=== PATIENT | female | born 1990 | race Caucasian/White ===

== ENCOUNTER 2017-11-14 19:06 | Emergency (ER) | payer OTHER ==
[2017-11-14 19:13] VITALS: BP 140/90; PULSE 93; TEMP 98.2; BMI 44.4
--- NOTE | 2017-11-14 19:16 | PDOC ---
History of Present Illness - General History Source: Patient Exam Limitations: No Limitations - History of Present Illness Initial Comments: 11/14/17 20:29 The patient is a 27 year old female, with a significant PMH of Diogenes thyroiditis, bipolar and SMA syndrome s/p jejunostomy, who presents to the emergency department with 3 days of migraine. The patient endorses associated symptoms of body aches, nonbloody and nonbilious vomiting and diarrhea. The patient reports a boil outside of her vagina. The patient denies any history of migraines. Denies chest pain, shortness of breath and dizziness. Denies fever, chills, nausea, vomit, diarrhea and constipation. Denies dysuria, frequency, urgency and hematuria. Allergies: Cefdinir, haloperidol, haloperidol lactate, Penicillins, sulfa Past surgical history: Abdominal exploratory, cholecystectomy PCP: None reported <Juliocesar Lance - Last Filed: 11/14/17 20:29> - General History Source: Patient Exam Limitations: No Limitations <Mindi Mcconnell - Last Filed: 11/15/17 00:06> - General Chief Complaint: Nausea/Vomiting Stated Complaint: DIARRHEA Time Seen by Provider: 11/14/17 19:15 Past History <Juliocesar Lance - Last Filed: 11/14/17 20:29> - Past Medical History COPD: No GI Disorders: Yes Psychiatric Problems: Yes (BIPOLAR) Thyroid Disease: Yes (Diogenes's thyroiditis) - Surgical History Abdominal Surgery: Yes (Exploratory) Cholecystectomy: Yes GI Surgery: Yes (Gastrojejunun) - Immunization History Immunization Up to Date: Yes - Suicide/Smoking/Psychosocial Hx Smoking History: Current every day smoker Have you smoked in the past 12 months: Yes Number of Cigarettes Smoked Daily: 4 Information on smoking cessation initiated: No 'Breaking Loose' booklet given: 03/29/14 Hx Alcohol Use: No Drug/Substance Use Hx: No Substance Use Type: None <Mindi Mcconnell - Last Filed: 11/15/17 00:06> - Past Medical History Allergies/Adverse Reactions: Allergies Allergy/AdvReac Type Severity Reaction Status Date / Time cefdinir [Cefdinir] Allergy Verified 11/14/17 19:09 haloperidol [From Haldol] Allergy Verified 11/14/17 19:09 haloperidol lactate Allergy Verified 11/14/17 19:09 [From Haldol] Penicillins Allergy Verified 11/14/17 19:09 Sulfa (Sulfonamide Allergy Verified 11/14/17 19:09 Antibiotics) venom-honey bee Allergy Verified 11/14/17 19:09 [bee venom (honey bee)] Home Medications: Ambulatory Orders Lamotrigine [LaMICtal -] 125 mg PO DAILY 10/09/13 Thyroid,Pork [[place] Thyroid] 120 mg PO DAILY 10/09/13 Alprazolam [Xanax -] 1 mg PO DAILY PRN 03/06/15 Ciprofloxacin [Cipro -] 500 mg PO Q12H #20 tablet 12/17/15 Dicyclomine HCl [Bentyl] 20 mg PO DAILY 12/17/15 Hydrocodone/Acetaminophen [Vicodin 5-300 mg Tablet] 1 each PO TID #6 tablet MDD 3 12/17/15 Hydrocodone/Acetaminophen [Vicodin Hp 10-300 mg Tablet] 1 each PO TID PRN Metoclopramide HCl [Reglan] 10 mg PO DAILY #10 tablet 12/17/15 Sucralfate [Carafate -] 1 gm PO QID #40 tablet 12/17/15 metroNIDAZOLE [Flagyl -] 500 mg PO TID #30 tablet 12/17/15 Acetaminophen W/ Codeine #3 [Tylenol # 3 -] 1 tab PO Q6H PRN #6 tablet MDD 3 tabs 10/15/17 Acetaminophen W/ Codeine #3 [Tylenol # 3 -] 1 tab PO Q6H PRN #6 tablet MDD 3 tabs 10/15/17 Ondansetron HCl [Zofran] 4 mg PO BID PRN #20 tablet 11/15/17 Review of Systems - Review of Systems Comments:: 11/14/17 20:30 General: No fevers or chills, no weakness, no weight loss HEENT: No change in vision. No sore throat,. No ear pain Cardiovascular: No chest pain or shortness of breath Respiratory:No cough, or wheezing. Gastrointestinal:+ nausea +vomiting +diarrhea. No constipation, No rectal bleeding Genitourinary: No dysuria, hematuria, or frequency Musculoskeletal: No joint or muscle pain or swelling Neurologic: +headache. No vertigo, dizziness or loss of consciousness Psychiatric: nor depression Skin: No rashes or easy bruising Endocrine: no increased thirst or abnormal weight change Allergic: no skin or latex allergy All other systems reviewed and normal <Juliocesar Lance - Last Filed: 11/14/17 20:29> *Physical Exam - Vital Signs Last Vital Signs Temp Pulse Resp BP Pulse Ox 98.2 F 93 H 18 140/90 96 11/14/17 19:09 11/14/17 19:09 11/14/17 19:09 11/14/17 19:09 11/14/17 19:09 - Physical Exam Comments: 11/14/17 20:41 GENERAL: The patient is in no acute distress. HEAD: Normal with no signs of trauma. EYES: PERRLA, EOMI, sclera anicteric, conjunctiva clear. ENT: Ears normal, nares patent, oropharynx clear without exudates. Moist mucous membranes. NECK: Normal range of motion, supple without lymphadenopathy, JVD, or masses. LUNGS: Breath sounds equal, clear to auscultation bilaterally. No wheezes, and no crackles. HEART:Regular rate and rhythm, normal S1 and S2 without murmur, rub or gallop. ABDOMEN: +Mild epigastric tenderness. Soft, nontender, normoactive bowel sounds. No guarding, no rebound. No masses palpable. GI:No abscess to vagina, no swelling rash or bug bite. EXTREMITIES: Normal range of motion, no edema. No clubbing or cyanosis. No erythema, or tenderness. NEUROLOGICAL: Cranial nerves II through XII grossly intact. Normal speech. No focal neurological deficits. MUSCULOSKELETAL: No nuchal rigidity. Back non-tender to palpation, no CVA tenderness SKIN: +Scab to the top of the head. Warm, Dry, normal turgor, no rashes or lesions noted. <Juliocesar Lance - Last Filed: 11/14/17 20:29> - Vital Signs Last Vital Signs Temp Pulse Resp BP Pulse Ox 98.2 F 93 H 18 140/90 96 11/14/17 19:09 11/14/17 19:09 11/14/17 19:09 11/14/17 19:09 11/14/17 19:09 <Mindi Mcconnell - Last Filed: 11/15/17 00:06> ED Treatment Course - LABORATORY CBC & Chemistry Diagram: 11/14/17 20:05 11/14/17 20:05 - ADDITIONAL ORDERS Additional order review: 11/14/17 20:05 RBC 4.50 MCV 89.7 MCHC 33.0 RDW 12.6 MPV 8.0 Neutrophils % 57.5 Lymphocytes % 33.5 Monocytes % 7.3 Eosinophils % 1.0 Basophils % 0.7 - Medications Given in the ED: ED Medications Discontinued Medications Generic Name Dose Route Start Last Admin Trade Name Marjan PRN Reason Stop Dose Admin Acetaminophen 1,000 mg 11/14/17 19:46 11/14/17 20:27 Ofirmev Injection - IVPB 11/14/17 19:47 1,000 mg ONCE ONE Administration <Juliocesar Lance - Last Filed: 11/14/17 20:29> - LABORATORY CBC & Chemistry Diagram: 11/14/17 20:05 11/14/17 20:05 <Mindi Mcconnell - Last Filed: 11/15/17 00:06> Medical Decision Making - Medical Decision Making 11/14/17 21:47 Ms Brunson is a 27 yo F with a h/o Diogenes's Thyroiditis, h/o epilepsy, SMA syndrome s/p gastrojejunostomy She presents to the ER with a complaint of body aches, bone pain She noted that at the top of her scalp, she expressed a purulent material She has had vomiting and diarrhea such that she has been unable to take her synthroid for the past 3 days No known fevers On examination: Pt appears anxious, she is fidgety. RRR CTA B/L Epigastric tenderness to palpation External genitalia nml appearing, no erythema, no fluctuance palpated Unclear the cause of her Will do: Labs IV hydration Tylenol Pt given Reglan for nausea and headache She has taken this before She developed body tingling Pt given Benadryl 11/14/17 21:51 Laboratory Tests 11/14/17 11/14/17 20:05 20:05 WBC 8.4 RBC 4.50 Hct 40.3 Plt Count 336 Neutrophils % 57.5 Lymphocytes % 33.5 Sodium 137 Potassium 3.5 Chloride 105 Carbon Dioxide 24 BUN 8 Creatinine 0.8 Random Glucose 93 AST 17 D ALT 44 H D Total Amylase [address] head Mother is concerned about additional radiation because she has had multiple images for the abdominal pain (SMA syndrome dx) and the seizure Awaiting testing 11/15/17 00:01 CT head neagtive Pt feels much better Will discharge to home Return to the ER for any other concerns or complaints <Mindi Mcconnell - Last Filed: 11/15/17 00:06> *DC/Admit/Observation/Transfer <Juliocesar Lance - Last Filed: 11/14/17 20:29> - Discharge Dispostion Decision to Admit order: No <Mindi Mcconnell - Last Filed: 11/15/17 00:06> Diagnosis at time of Disposition: Scalp abscess Nausea & vomiting Qualifiers: Vomiting type: unspecified Vomiting Intractability: non-intractable Qualified Code(s): R11.2 - Nausea with vomiting, unspecified - Discharge Dispostion Disposition: HOME Condition at time of disposition: Stable - Patient Instructions Printed Discharge Instructions: DI for Nausea -- Adult, DI for Vomiting -- Adult Additional Instructions: Ms Lujannabor Thank you for coming in to the ER today Please take medications as prescribed Please stay hydrated Monitor for fevers If your symptoms worsen or do not improve, please return to the ER for re evaluation Follow up with your primary care physician within 2-3 business days Please apply warm compresses to the area that is painful, if you notice an abscess return to the ER or the equipment cleaner's office
[2017-11-14] MEDS ORDERED: SODIUM CHLORIDE 1,000 ML IV STA ×2 (19:46→22:43)
[2017-11-14] MEDS ORDERED: ACETAMINOPHEN 1000 MG/100 ML VIAL (NON FORMULARY) IVPB ONE (19:46)
[2017-11-14] MEDS ORDERED: METOCLOPRAMIDE HCL INJECTION 10 MG/2 ML VIAL IVPUSH ONE (19:56)
[2017-11-14] MEDS ORDERED: ACETAMINOPHEN INJECTION 100 ML IVPB ONE (20:13)
[2017-11-14 20:21] LABS: BASO % 0.7 % (0-2.0); HEMATOCRIT 40.3 % (32.4-45.2); HEMOGLOBIN 13.3 GM/dl (10.7-15.3); LYMPH % 33.5 % (8-40); MCH 29.6 pg (25.7-33.7); MEAN CELL VOLUME 89.7 fl (80-96); MONO % 7.3 % (3.8-10.2); NEUT % 57.5 % (42.8-82.8); PLATELET COUNT 336 K/MM3 (134-434); RDW 12.6 % (11.6-15.6); WHITE BLOOD COUNT 8.4 K/mm3 (4.0-10.8)
[2017-11-14 20:34] LABS: ALBUMIN 4.3 g/dl (3.5-5.0); ALK PHOS 154 U/L (32-92); AMYLASE 36 U/L (25-125); ANION GAP 8 MMOL/L (8-16); BILIRUBIN,TOTAL 0.6 mg/dl (0.2-1.0); BLOOD UREA NITROGEN 8 mg/dl (7-18); CHLORIDE 105 mmol/L (98-107); CO2 24 mmol/L (22-28); CREATININE 0.8 mg/dl (0.6-1.3); GLUCOSE,RANDOM 93 mg/dl (74-106); POTASSIUM 3.5 mmol/L (3.5-5.1); SGOT/AST 17 U/L (10-42); SGPT/ALT 44 U/L (10-40); SODIUM 137 mmol/L (136-145); TOT PROT 7.2 g/dl (6.4-8.3)
[2017-11-14 21:35] LABS: LIPASE 84 U/L (73-393)
[2017-11-14 22:47] LABS: HCG,QUALITATIVE URINE Negative
[2017-11-14 22:49] LABS: PH,URINE 5.5 (4.5-8); URINE APPEARANCE Clear; URINE BILIRUBIN 1+ (NEGATIVE); URINE COLOR Yellow; URINE GLUCOSE (UA) Negative (NEGATIVE); URINE KETONE 1+ (NEGATIVE); URINE LEUK ESTERASE Negative (NEGATIVE); URINE NITRITE Negative (NEGATIVE); URINE PROTEIN Negative (NEGATIVE); URINE UROBILINOGEN 0.2 (0.2-1.0)
== END 2017-11-15 00:54 | disposition home or self-care (01) ==
LOC: FER 19:06
PROC: 3E033NZ Introduction of Analgesics, Hypnotics, Sedatives into Peripheral Vein, Percutaneous Approach (ICD-10-PCS; principal; 2017-11-14)
PROC: 3E033GC Introduction of Other Therapeutic Substance into Peripheral Vein, Percutaneous Approach (ICD-10-PCS; 2017-11-14)
PROC: 3E0337Z Introduction of Electrolytic and Water Balance Substance into Peripheral Vein, Percutaneous Approach (ICD-10-PCS; 2017-11-14)
DX: R11.2 Nausea with vomiting, unspecified (principal); L02.811 Cutaneous abscess of head [any part, except face]; E06.3 Autoimmune thyroiditis; G40.909 Epilepsy, unspecified, not intractable, without status epilepticus; G12.9 Spinal muscular atrophy, unspecified
CPT/HCPCS: 36415; 70450-TC; 80053; 81003; 82150; 83690; 84443; 84703; 85025; 87040; 87086; 99281-25; 99282-25; J0131; J7030

== ENCOUNTER 2018-05-10 05:04 | Emergency (ER) | payer OTHER ==
[2018-05-10 05:20] VITALS: BP 116/69; PULSE 79; TEMP 97.8; BMI 38.7
--- NOTE | 2018-05-10 05:21 | PDOC ---
History of Present Illness - General Chief Complaint: Injury Stated Complaint: FALL/HEAD INJURY - History of Present Illness Initial Comments: 05/10/18 06:01 This 28-year-old woman with a history of Diogenes's thyroiditis, seizure disorder, SMA syndrome, anxiety and a history of sleepwalking presents after episode of sleepwalking resulting in a head/facial injury. Patient states that at approximately 1:30 AM this morning she was sleepwalking when she fell, striking her upper face against the floor. The patient states that she awakened immediately and feels that she had no other loss of consciousness ( patient lives alone and fall was unwitnessed). Patient was able to call 911 and was taken to another hospital ER. She left this ER after not being seen after a few hours and proceeded here in the company of her mother. Patient states that she initially had a nosebleed that persisted for about an hour (and has not recurred since then) . She is currently complaining of frontal headache and mild nausea. She has had no double vision or malocclusion . She denies neck pain/shortness of breath or chest pain/abdominal pain. She was able to ambulate into the ER here without difficulty. Patient recently had a sleep study to investigate her history of sleepwalking. Sleepwalking reportedly began after a seizure in February,. The patient states that she had fewer episodes of sleepwalking in recent times until last night's incident. Past History - Past Medical History Allergies/Adverse Reactions: Allergies Allergy/AdvReac Type Severity Reaction Status Date / Time cefdinir [Cefdinir] Allergy Verified 11/14/17 19:09 haloperidol [From Haldol] Allergy Verified 11/14/17 19:09 haloperidol lactate Allergy Verified 11/14/17 19:09 [From Haldol] Penicillins Allergy Verified 11/14/17 19:09 Sulfa (Sulfonamide Allergy Verified 11/14/17 19:09 Antibiotics) venom-honey bee Allergy Verified 11/14/17 19:09 [bee venom (honey bee)] Home Medications: Ambulatory Orders Lamotrigine [LaMICtal -] 200 mg PO DAILY 10/09/13 Thyroid,Pork [[place] Thyroid] 120 mg PO DAILY 10/09/13 Alprazolam [Xanax -] 1 mg PO DAILY PRN 03/06/15 Metoclopramide HCl [Reglan] 10 mg PO DAILY #10 tablet 12/17/15 Sucralfate [Carafate -] 1 gm PO QID #40 tablet 12/17/15 Ondansetron HCl [Zofran] 4 mg PO BID PRN #20 tablet 11/15/17 Buprenorphine HCl/Naloxone HCl [Suboxone 8 mg-2 mg Sl Tablets] 24 mg SL DAILY Fluvoxamine Maleate [Luvox -] 300 mg PO DAILY 05/10/18 traZODone HCL [Trazodone HCl] 50 mg PO DAILY 05/10/18 COPD: No GI Disorders: Yes Psychiatric Problems: Yes (BIPOLAR) Thyroid Disease: Yes (Diogenes's thyroiditis) - Surgical History Abdominal Surgery: Yes (Exploratory) Cholecystectomy: Yes GI Surgery: Yes (Gastrojejunun) - Immunization History Immunization Up to Date: Yes - Suicide/Smoking/Psychosocial Hx Smoking History: Current every day smoker Have you smoked in the past 12 months: Yes Number of Cigarettes Smoked Daily: 5 Information on smoking cessation initiated: Yes 'Breaking Loose' booklet given: 03/29/14 Hx Alcohol Use: No Drug/Substance Use Hx: No Substance Use Type: None Review of Systems - Review of Systems Able to Perform ROS?: Yes Comments:: 12 point review of systems is negative except for what is noted in the history of present illness *Physical Exam - Vital Signs Last Vital Signs Temp Pulse Resp BP Pulse Ox 97.8 F 79 16 116/69 99 05/10/18 05:16 05/10/18 05:16 05/10/18 05:16 05/10/18 05:16 05/10/18 05:16 - Physical Exam Comments: GENERAL: Adult female, alert and oriented 3, in mild distress secondary to headache. HEAD: Faintly ecchymotic, moderately tender and mildly edematous 2 cm x 2 cm right forehead contusion EYES: PERRLA, EOMI, sclera anicteric, conjunctiva clear. ENT: . Nonbleeding 1 cm abrasion of midline nasal bridge; bridge is moderately edematous, moderately tender; no distinct deformity No evidence of epistaxis currently; nonbleeding 1cm abrasion midline mid-nose. 1 cm nonbleeding abrasion to the right of the philtrum No evidence of malocclusion; no dental or gingival injury noted NECK: Normal range of motion, supple without lymphadenopathy, JVD, or masses. LUNGS: Breath sounds equal, clear to auscultation bilaterally. No wheezes, and no crackles. HEART:Regular rate and rhythm, normal S1 and S2 without murmur, rub or gallop. ABDOMEN:.normal bowel sounds No guarding,tenderness or rebound.No masses No distention. EXTREMITIES: Normal range of motion, no edema. No clubbing or cyanosis. No erythema, or tenderness. NEUROLOGICAL: Cranial nerves II through XII grossly intact. Normal speech. No focal neurological deficits. MUSCULOSKELETAL: Back non-tender to palpation, no CVA tenderness SKIN: Warm, Dry, normal turgor, no rashes or lesions noted. Moderate Sedation - Procedure Monitoring Vital Signs: Procedure Monitoring Vital Signs Temperature 97.8 F 05/10/18 05:16 Pulse Rate 79 05/10/18 05:16 Respiratory Rate 16 05/10/18 05:16 Blood Pressure 116/69 05/10/18 05:16 O2 Sat by Pulse Oximetry (%) 99 05/10/18 05:16 Medical Decision Making - Medical Decision Making This 28-year-old woman with several medical problems as noted above and recent history of sleepwalking presents with head and facial trauma after falling during an episode of sleepwalking a few hours prior to presentation. She is complaining of headache and mild nausea Exam as noted above with tender contusion of the right forehead and tenderness/ edema/abrasions of nasal area. PGU sent and patient given 1 g of acetaminophen IV for headache. Abrasions cleansed with sterile NS and Bacitracin ointment applied Patient has a history of SMA syndrome which, according to her mother frequently occurs after acutely stressful episodes such as tonight's sleepwalking incident. In the past, PPI medications have been successful in proactively avoiding these SMA syndrome episodes. Protonix 40 mg IV administered while awaiting imaging study. PGU negative. Noncontrast head CT/facial CT ordered. 05/10/18 07:01 Case signed out to Dr Mcconnell at change of shift. *DC/Admit/Observation/Transfer Diagnosis at time of Disposition: Sleep walking Facial injury Qualifiers: Encounter type: initial encounter Qualified Code(s): S09.93XA - Unspecified injury of face, initial encounter - Discharge Dispostion Disposition: HOME Condition at time of disposition: Stable - Referrals Referrals: Pepe Dominguez [Primary Care Provider] - - Patient Instructions Printed Discharge Instructions: DI for Closed Head Injury Additional Instructions: Thank you for coming in to the ER today Please review your CT results They were preliminarily read as negative but will be re read today by our radiologists. If there are ANY new findings, we will call you For now, please take tylenol every 6 hours, apply ice to the areas that are painful Return to the emergency department immediately with ANY new, persistent or worsening symptoms. Continue any medications as previously prescribed by your physician. You should follow up with your primary doctor as soon as possible regarding today's emergency department visit. Please make sure your doctor reviews the results of your emergency evaluation. Thank you for coming to the [facility] today for your care. It was a pleasure to see you today. Please note that your evaluation is INCOMPLETE until you follow-up with your doctor. - Post Discharge Activity
[2018-05-10] MEDS ORDERED: ACETAMINOPHEN 1000 MG/100 ML VIAL (NON FORMULARY) IVPB ONE (05:48)
[2018-05-10] MEDS ORDERED: ACETAMINOPHEN INJECTION 100 ML IVPB ONE (05:55)
[2018-05-10] MEDS ORDERED: PANTOPRAZOLE SODIUM 40 MG VIAL IVPB ONE (06:16)
[2018-05-10] MEDS ORDERED: PANTOPRAZOLE SODIUM 40 MG VIAL ONE (06:18)
--- NOTE | 2018-05-10 08:07 | PDOC ---
*Physical Exam - Vital Signs Last Vital Signs Temp Pulse Resp BP Pulse Ox 97.8 F 79 16 116/69 99 05/10/18 05:16 05/10/18 05:16 05/10/18 05:16 05/10/18 05:16 05/10/18 05:16 ED Treatment Course - ADDITIONAL ORDERS Additional order review: Laboratory Results 05/10/18 05:50 Urine HCG, Qual Negative - Medications Given in the ED: ED Medications Discontinued Medications Generic Name Dose Route Start Last Admin Trade Name Marjan PRN Reason Stop Dose Admin Acetaminophen 1,000 mg 05/10/18 05:48 05/10/18 05:58 Ofirmev Injection - IVPB 05/10/18 05:49 1,000 mg ONCE ONE Administration Pantoprazole Sodium 40 mg 05/10/18 06:16 05/10/18 06:23 Protonix Iv IVPB 05/10/18 06:17 40 mg ONCE ONE Administration Medical Decision Making - Medical Decision Making 05/10/18 08:05 I received this patient on signout Briefly, she presents s/p an episode of sleep walking in which she fell and struck her head She awoke immediately Called EMS and went to OSH where the wait was so long that she came here Evidence of facial trauma no neurologic abnormalities Pending CT 05/10/18 08:16 CT- No defnite acute hemorrhage, mass or acute territorial infarct. Exam limited by artifact. No skull fracture. Clear visualized paranasal sinuses. Visualized mastoid air cells clear. 05/10/18 08:41 CT facial bones: No acute fracture. Minimal mucoperiosteal thickening paranasal sinuses. Retropharyngeal left internal carotid artery. Will discharge to home *DC/Admit/Observation/Transfer Diagnosis at time of Disposition: Sleep walking Facial injury Qualifiers: Encounter type: initial encounter Qualified Code(s): S09.93XA - Unspecified injury of face, initial encounter - Discharge Dispostion Disposition: HOME Condition at time of disposition: Stable Decision to Admit order: No - Referrals Referrals: Pepe Dominguez [Primary Care Provider] - - Patient Instructions Printed Discharge Instructions: DI for Closed Head Injury Additional Instructions: Thank you for coming in to the ER today Please review your CT results They were preliminarily read as negative but will be re read today by our radiologists. If there are ANY new findings, we will call you For now, please take tylenol every 6 hours, apply ice to the areas that are painful Return to the emergency department immediately with ANY new, persistent or worsening symptoms. Continue any medications as previously prescribed by your physician. You should follow up with your primary doctor as soon as possible regarding today's emergency department visit. Please make sure your doctor reviews the results of your emergency evaluation. Thank you for coming to the [facility] today for your care. It was a pleasure to see you today. Please note that your evaluation is INCOMPLETE until you follow-up with your doctor. - Post Discharge Activity
[2018-05-10] MEDS ORDERED: KETOROLAC TROMETHAMINE 15 MG/ML VIAL ONE (08:47)
[2018-05-10] MEDS ORDERED: KETOROLAC TROMETHAMINE 30 MG/1 ML VIAL IVPUSH ONE (08:48)
== END 2018-05-10 08:58 | disposition home or self-care (01) ==
LOC: FER 05:04
PROC: 3E033NZ Introduction of Analgesics, Hypnotics, Sedatives into Peripheral Vein, Percutaneous Approach (ICD-10-PCS; principal; 2018-05-10)
PROC: 3E0333Z Introduction of Anti-inflammatory into Peripheral Vein, Percutaneous Approach (ICD-10-PCS; 2018-05-10)
PROC: 3E033GC Introduction of Other Therapeutic Substance into Peripheral Vein, Percutaneous Approach (ICD-10-PCS; 2018-05-10)
DX: F51.3 Sleepwalking [somnambulism] (principal); S09.93XA Unspecified injury of face, initial encounter; F31.9 Bipolar disorder, unspecified; F17.210 Nicotine dependence, cigarettes, uncomplicated; E06.3 Autoimmune thyroiditis; W18.39XA Other fall on same level, initial encounter; Y93.84 Activity, sleeping; Y92.009 Unspecified place in unspecified non-institutional (private) residence as the place of occurrence of the external cause
CPT/HCPCS: 70450-TC; 70486-TC; 84703; 99282-25; J0131

== ENCOUNTER 2018-11-11 14:13 | Inpatient (IN) | payer OTHER ==
--- NOTE | 2018-11-11 14:42 | PDOC ---
History of Present Illness - General Chief Complaint: SIRS, Suspected/Possible Stated Complaint: Weakness Time Seen by Provider: 11/11/18 14:40 Past History - Past Medical History Allergies/Adverse Reactions: Allergies Allergy/AdvReac Type Severity Reaction Status Date / Time cefdinir [Cefdinir] Allergy Verified 11/11/18 14:29 cephalexin [From Keflex] Allergy Verified 11/11/18 14:29 haloperidol [From Haldol] Allergy Verified 11/11/18 14:29 haloperidol lactate Allergy Verified 11/11/18 14:29 [From Haldol] Penicillins Allergy Verified 11/11/18 14:29 shellfish derived Allergy Verified 11/11/18 14:29 Sulfa (Sulfonamide Allergy Verified 11/11/18 14:29 Antibiotics) venom-honey bee Allergy Verified 11/11/18 14:29 [bee venom (honey bee)] iv contrast Allergy Uncoded 11/11/18 14:29 Home Medications: Ambulatory Orders Lamotrigine [LaMICtal -] 200 mg PO DAILY 10/09/13 Thyroid,Pork [Una Thyroid] 120 mg PO DAILY 10/09/13 Alprazolam [Xanax -] 1 mg PO DAILY PRN 03/06/15 Buprenorphine HCl/Naloxone HCl [Suboxone 8 mg-2 mg Sl Tablets] 24 mg SL DAILY Fluvoxamine Maleate [Luvox -] 300 mg PO DAILY 05/10/18 traZODone HCL [Trazodone HCl] 50 mg PO DAILY 05/10/18 COPD: No GI Disorders: Yes Psychiatric Problems: Yes (BIPOLAR) Thyroid Disease: Yes (Diogenes's thyroiditis) - Surgical History Abdominal Surgery: Yes (Exploratory) Cholecystectomy: Yes GI Surgery: Yes (Gastrojejunun) - Immunization History Immunization Up to Date: Yes - Suicide/Smoking/Psychosocial Hx Smoking History: Current every day smoker Have you smoked in the past 12 months: Yes Number of Cigarettes Smoked Daily: 2 Information on smoking cessation initiated: No 'Breaking Loose' booklet given: 03/29/14 Hx Alcohol Use: No Drug/Substance Use Hx: Yes Substance Use Type: None *Physical Exam - Vital Signs Last Vital Signs Temp Pulse Resp BP Pulse Ox 102.2 F H 85 24 H 131/82 96 11/11/18 14:29 11/11/18 14:29 11/11/18 14:29 11/11/18 14:29 11/11/18 14:29 ED Treatment Course - LABORATORY CBC & Chemistry Diagram: 11/11/18 15:44 11/11/18 15:44 Medical Decision Making - Medical Decision Making 28 yo F with PMH of substance abuse (on suboxone), Diogenes's, SMA syndrome, anxiety, borderline personality disorder, obstructive sleep apnea sent by urgent care for evaluation of shortness of breath and hypoxia. Patient states she had stopped using recreational substances for three years until Friday when she relapsed. On Friday she took pills of percocet and xanax and overdosed. Patient was treated at [facility] and discharged the following day. Since that time she has felt unwell: subjective fever, chills, headache, chest pain, shortness of breath, abdominal pain. She has felt "wobbly" but denies fall or syncope. Patient states her symptoms may be consistent with withdrawal, but it feels different. She has had a nonproductive cough. Denies history of asthma. Patient takes klonipin prescribed by a doctor but did not take any today. No hemoptysis, no recent surgical history, no recent immobilization, no hormone use, no history of DVT or PE. PCP: Pepe Dominguez ROS: Constitutional: +fever, +chills HEENT: no throat pain, no dysphagia Cardiovascular: +chest pain, no palpitations Respiratory: +cough, +shortness of breath Gastrointestinal: no nausea, no vomiting Genitourinary: no dysuria, no hematuria Musculoskeletal: no myalgia, no arthralgia Skin: no rash, no itching Neurologic: +headache, no weakness PE: General: Awake, alert, and fully oriented, tearful Head: No signs of trauma Eyes: EOMI, sclera anicteric ENT: Moist mucus membranes Neck: Normal ROM, supple Lungs: Wheezes present at bilateral bases Cardio: Regular rhythm, S1 and S2 present Abdomen: Soft, nontender. No guarding, no rebound, no masses Extremities: Normal range of motion, Distal pulses present, No calf tenderness SKIN: Warm, Dry, normal turgor Neurologic: Cranial nerves II through XII grossly intact. Normal speech ED Courses/MDM: DDX including but not limited to PNA, UTI, bacteremia, sepsis, substance use, withdrawal, asthma, COPD Fluids, Ofirmev Sepsis workup D-Dimer to assess for PE BNP to assess for fluid overload 11/11/18 14:42 EKG: rate 82, QTc 425, NSR CBC WBC 4.9 K/mm3 (4.0-10.0) 11/11/18 15:44 RBC 3.65 M/mm3 (3.60-5.2) 11/11/18 15:44 Hgb 11.1 GM/dL (10.7-15.3) 11/11/18 15:44 Hct 32.8 % (32.4-45.2) D 11/11/18 15:44 MCV 89.9 fl (80-96) 11/11/18 15:44 MCH 30.5 pg (25.7-33.7) 11/11/18 15:44 MCHC 33.9 g/dl (32.0-36.0) 11/11/18 15:44 RDW 13.9 % (11.6-15.6) 11/11/18 15:44 Plt Count 169 K/MM3 (134-434) D 11/11/18 15:44 MPV 7.4 fl (7.5-11.1) L 11/11/18 15:44 Absolute Neuts (auto) 3.1 K/mm3 (1.5-8.0) 11/11/18 15:44 Neutrophils % 64.3 % (42.8-82.8) 11/11/18 15:44 Lymphocytes % 24.5 % (8-40) D 11/11/18 15:44 Monocytes % 9.0 % (3.8-10.2) 11/11/18 15:44 Eosinophils % 1.8 % (0-4.5) 11/11/18 15:44 Basophils % 0.4 % (0-2.0) 11/11/18 15:44 Nucleated RBC % 0 % (0-0) 11/11/18 15:44 Platelet Estimate Decreased 11/11/18 15:44 Platelet Comment No clumping noted 11/11/18 15:44 No leukocytosis CMP Sodium 137 mmol/L (136-145) 11/11/18 15:44 Potassium 4.1 mmol/L (3.5-5.1) 11/11/18 15:44 Chloride 102 mmol/L (98-107) 11/11/18 15:44 Carbon Dioxide 28 mmol/L (21-32) 11/11/18 15:44 Anion Gap 7 MMOL/L (8-16) L 11/11/18 15:44 BUN 4.0 mg/dL (7-18) L 11/11/18 15:44 Creatinine 0.8 mg/dL (0.55-1.3) 11/11/18 15:44 Est GFR (CKD-EPI)AfAm 117.10 11/11/18 15:44 Est GFR (CKD-EPI)NonAf 101.04 11/11/18 15:44 Random Glucose 89 mg/dL (74-106) 11/11/18 15:44 Lactic Acid 0.6 mmol/L (0.4-2.0) 11/11/18 15:44 Calcium 8.4 mg/dL (8.5-10.1) L 11/11/18 15:44 Total Bilirubin 0.4 mg/dL (0.2-1) 11/11/18 15:44 AST 61 U/L (15-37) H 11/11/18 15:44 ALT 96 U/L (13-61) H 11/11/18 15:44 Alkaline Phosphatase 307 U/L (45-117) H 11/11/18 15:44 Troponin I < 0.02 ng/ml (0.00-0.05) 11/11/18 15:44 B-Natriuretic Peptide 1426.3 pg/ml (5-125) H 11/11/18 15:44 Total Protein 6.2 g/dl (6.4-8.2) L 11/11/18 15:44 Albumin 3.4 g/dl (3.4-5.0) 11/11/18 15:44 TSH 2.37 uIU/ml (0.358-3.74) 11/11/18 15:44 Elevated liver enzymes and ALP Tpn negative BNP elevated Normal lactate TSH normal range Cr normal D-dimer elevated CTA chest deferred as patient with allergy to IV contrast. Admission indicated for V/Q scan Will treat empirically with 1mg/kg Lovenox for possible PE I do not suspect sepsis Patient feeling somewhat better, but still hypoxic to low 90s on room air. More breathing treatments ordered. UTox positive for benzodiazepine Plan for admission; Patient amenable to this plan 11/11/18 18:08 Updated patient's mother, Madelyn Olivo, per patient's request Per mother she was taken to [facility] on Friday evening as she was not feeling well She is requesting a thyroid panel 11/11/18 19:01 Received call from Madelyn Olivo. Patient had non-epileptic seizure in 2017. She also has severe GREY and sleepwalks. Microblog sent to [facility] admitting team 11/11/18 19:[address] Soto who accepted patient for admission under Dr. Dutta 11/11/18 20:04 *DC/Admit/Observation/Transfer Diagnosis at time of Disposition: Hypoxia, Shortness of breath - Discharge Dispostion Condition at time of disposition: Guarded Decision to Admit order: Yes - Referrals Referrals: Pepe Dominguez [Primary Care Provider] - - Patient Instructions - Post Discharge Activity
[2018-11-11] MEDS ORDERED: ACETAMINOPHEN 1000 MG/100 ML VIAL (NON FORMULARY) IVPB ONE (15:28)
[2018-11-11] MEDS ORDERED: SODIUM CHLORIDE 1,000 ML IV STA (15:28)
[2018-11-11] MEDS ORDERED: ALBUTEROL SO4 2.5/IPRATROPIUM 0.5 INH SOL 3 ML VIAL.NEB. NEB ONE ×2 (15:28→15:57)
[2018-11-11] MEDS ORDERED: ACETAMINOPHEN INJECTION 100 ML IVPB ONE (15:57)
[2018-11-11 16:11] LABS: BASO % 0.4 % (0-2.0); EOS % 1.8 % (0-4.5); HEMATOCRIT 32.8 % (32.4-45.2); HEMOGLOBIN 11.1 GM/dL (10.7-15.3); LYMPH % 24.5 % (8-40); MCH 30.5 pg (25.7-33.7); MCHC 33.9 g/dl (32.0-36.0); MEAN CELL VOLUME 89.9 fl (80-96); MEAN PLT VOLUME 7.4 fl (7.5-11.1); NEUT % 64.3 % (42.8-82.8); RBC 3.65 M/mm3 (3.60-5.2); RDW 13.9 % (11.6-15.6); WHITE BLOOD COUNT 4.9 K/mm3 (4.0-10.0)
[2018-11-11 16:12] LABS: VENOUS PC02 43.4 mmHg (38-52); VENOUS PH 7.4 (7.31-7.41); VENOUS PO2 61.7 mmHg (28-48)
[2018-11-11 16:35] LABS: ALBUMIN 3.4 g/dl (3.4-5.0); BILIRUBIN,TOTAL 0.4 mg/dL (0.2-1); CALCIUM 8.4 mg/dL (8.5-10.1); CREATININE 0.8 mg/dL (0.55-1.3); INR 1.14 (0.83-1.09); POTASSIUM 4.1 mmol/L (3.5-5.1); PROTHROMBIN TIME (PATIENT) 13.5 SEC (9.7-13.0); TOT PROT 6.2 g/dl (6.4-8.2)
[2018-11-11 16:37] LABS: ACTIVATED PTT 34.5 SECONDS (25.2-36.5)
[2018-11-11 16:54] LABS: N-TERMINAL BNP 1426.3 pg/ml (5-125)
[2018-11-11 17:09] LABS: COCAINE, UR NEGATIVE ng/ml (CUTOFF=300); METHADONE, UR NEGATIVE ng/ml (CUTOFF=300); OPIATES, URI NEGATIVE ng/ml (CUTOFF=300); PHENCYCLIDINE,URINE NEGATIVE ng/ml (CUTOFF=25); URINE AMPHETAMINES NEGATIVE ng/ml (CUTOFF=500); URINE BARBITURATES NEGATIVE ng/ml (CUTOFF=200)
[2018-11-11 17:17] LABS: URINE BENZODIAZEPINES POSITIVE ng/ml (CUTOFF=200)
[2018-11-11 17:24] LABS: PLATELET COUNT 169 K/MM3 (134-434); PLATELET ESTIMATE DECREASED
--- NOTE | 2018-11-11 17:44 | EKG ---
Test Reason : Blood Pressure : / mmHG Vent. Rate : 082 BPM Atrial Rate : 082 BPM P-R Int : 160 ms QRS Dur : 078 ms QT Int : 364 ms P-R-T Axes : 046 035 023 degrees QTc Int : 425 ms NORMAL SINUS RHYTHM NORMAL ECG NO PREVIOUS ECGS AVAILABLE Confirmed by JOCELYNN STOCK MD ([id number]) on 11/11/2018 5:43:40 PM Referred By: Confirmed By:JOCELYNN STOCK MD
[2018-11-11] MEDS ORDERED: ENOXAPARIN NA (PORCINE) 80 MG/0.8 ML DISP.SYRIN SQ ONE (18:06)
[2018-11-11] MEDS ORDERED: ALBUTEROL SO4 0.083% IH SOL 2.5 MG/3 ML VIAL.NEB. NEB ONE ×2 (18:10→19:19)
[2018-11-11] MEDS ORDERED: ENOXAPARIN NA (PORCINE) 100 MG/1 ML DISP.SYRIN SQ ONE (19:00)
[2018-11-11 19:40] LABS: PH,URINE 8.5 (5.0-8.0); URINE APPEARANCE CLEAR; URINE BILIRUBIN NEGATIVE (NEGATIVE); URINE COLOR YELLOW; URINE GLUCOSE (UA) NEGATIVE (NEGATIVE); URINE KETONE NEGATIVE (NEGATIVE); URINE LEUK ESTERASE NEGATIVE (NEGATIVE); URINE NITRITE NEGATIVE (NEGATIVE); URINE PROTEIN NEGATIVE (NEGATIVE); URINE UROBILINOGEN 0.2 mg/dL (0.2-1.0)
[2018-11-11] MEDS ORDERED: VANCOMYCIN 1 GM in D5W (PRE-DOCKED) 1,000 MG/250 ML IVPB ONE (19:45)
[2018-11-11] MEDS ORDERED: AZTREONAM 1 GM VIAL (RESTRICTED TO ID) IVPB ONE (20:00)
[2018-11-11] MEDS ORDERED: AZITHROMYCIN IVPB 500 MG in DEXTROSE 5%-WATER - 250 ML IVPB ONE (20:00)
--- NOTE | 2018-11-11 20:02 | PDOC ---
*Physical Exam - Vital Signs Last Vital Signs Temp Pulse Resp BP Pulse Ox 99.3 F 82 20 108/59 L 96 11/11/18 18:24 11/11/18 18:24 11/11/18 16:54 11/11/18 18:24 11/11/18 18:24 ED Treatment Course - LABORATORY CBC & Chemistry Diagram: 11/11/18 15:44 11/11/18 15:44 - ADDITIONAL ORDERS Additional order review: Laboratory Results 11/11/18 11/11/18 11/11/18 18:55 16:41 16:41 PT with INR INR PTT (Actin FS) D-Dimer VBG pH POC VBG pCO2 POC VBG pO2 VBG HCO3 VBG O2 Sat (Reji) VBG Base Excess Sodium Potassium Chloride Carbon Dioxide Anion Gap BUN Creatinine Est GFR (CKD-EPI)AfAm Est GFR (CKD-EPI)NonAf Random Glucose Lactic Acid Calcium Total Bilirubin AST ALT Alkaline Phosphatase Troponin I B-Natriuretic Peptide Total Protein Albumin TSH Urine Color Yellow Urine Appearance Clear Urine pH 8.5 H Ur Specific [place] 1.006 L Urine Protein Negative Urine Glucose (UA) Negative Urine Ketones Negative Urine Blood Negative Urine Nitrite Negative Urine Bilirubin Negative Urine Urobilinogen 0.2 Ur Leukocyte Esterase Negative Urine HCG, Qual Negative Opiates Screen Negative Methadone Screen Negative Barbiturate Screen Negative Phencyclidine Screen Negative Ur Amphetamines Screen Negative MDMA (Ecstasy) Screen Negative Benzodiazepines Screen Positive A* Cocaine Screen Negative U Marijuana (THC) Screen Negative 11/11/18 11/11/18 11/11/18 16:30 15:44 15:44 PT with INR INR PTT (Actin FS) D-Dimer 869 H VBG pH 7.40 POC VBG pCO2 43.4 POC VBG pO2 61.7 H VBG HCO3 26.6 VBG O2 Sat (Reji) 91.6 H VBG Base Excess 2.1 H Sodium Potassium Chloride Carbon Dioxide Anion Gap BUN Creatinine Est GFR (CKD-EPI)AfAm Est GFR (CKD-EPI)NonAf Random Glucose Lactic Acid Calcium Total Bilirubin AST ALT Alkaline Phosphatase Troponin I < 0.02 B-Natriuretic Peptide 1426.3 H Total Protein Albumin TSH 2.37 Urine Color Urine Appearance Urine pH Ur Specific [place] Urine Protein Urine Glucose (UA) Urine Ketones Urine Blood Urine Nitrite Urine Bilirubin Urine Urobilinogen Ur Leukocyte Esterase Urine HCG, Qual Opiates Screen Methadone Screen Barbiturate Screen Phencyclidine Screen Ur Amphetamines Screen MDMA (Ecstasy) Screen Benzodiazepines Screen Cocaine Screen U Marijuana (THC) Screen 11/11/18 11/11/18 11/11/18 15:44 15:44 15:44 PT with INR 13.50 H INR 1.14 H PTT (Actin FS) 34.5 D-Dimer VBG pH POC VBG pCO2 POC VBG pO2 VBG HCO3 VBG O2 Sat (Reji) VBG Base Excess Sodium 137 Potassium 4.1 Chloride 102 Carbon Dioxide 28 Anion Gap 7 L BUN 4.0 L Creatinine 0.8 Est GFR (CKD-EPI)AfAm 117.10 Est GFR (CKD-EPI)NonAf 101.04 Random Glucose 89 Lactic Acid 0.6 Calcium 8.4 L Total Bilirubin 0.4 AST 61 H ALT 96 H Alkaline Phosphatase 307 H Troponin I B-Natriuretic Peptide Total Protein 6.2 L Albumin 3.4 TSH Urine Color Urine Appearance Urine pH Ur Specific [place] Urine Protein Urine Glucose (UA) Urine Ketones Urine Blood Urine Nitrite Urine Bilirubin Urine Urobilinogen Ur Leukocyte Esterase Urine HCG, Qual Opiates Screen Methadone Screen Barbiturate Screen Phencyclidine Screen Ur Amphetamines Screen MDMA (Ecstasy) Screen Benzodiazepines Screen Cocaine Screen U Marijuana (THC) Screen 11/11/18 15:44 PT with INR INR PTT (Actin FS) Cancelled D-Dimer VBG pH POC VBG pCO2 POC VBG pO2 VBG HCO3 VBG O2 Sat (Reji) VBG Base Excess Sodium Potassium Chloride Carbon Dioxide Anion Gap BUN Creatinine Est GFR (CKD-EPI)AfAm Est GFR (CKD-EPI)NonAf Random Glucose Lactic Acid Calcium Total Bilirubin AST ALT Alkaline Phosphatase Troponin I B-Natriuretic Peptide Total Protein Albumin TSH Urine Color Urine Appearance Urine pH Ur Specific [place] Urine Protein Urine Glucose (UA) Urine Ketones Urine Blood Urine Nitrite Urine Bilirubin Urine Urobilinogen Ur Leukocyte Esterase Urine HCG, Qual Opiates Screen Methadone Screen Barbiturate Screen Phencyclidine Screen Ur Amphetamines Screen MDMA (Ecstasy) Screen Benzodiazepines Screen Cocaine Screen U Marijuana (THC) Screen 11/11/18 15:44 RBC 3.65 MCV 89.9 MCHC 33.9 RDW 13.9 MPV 7.4 L Neutrophils % 64.3 Lymphocytes % 24.5 D Monocytes % 9.0 Eosinophils % 1.8 Basophils % 0.4 - Medications Given in the ED: ED Medications Discontinued Medications Generic Name Dose Route Start Last Admin Trade Name Marjan PRN Reason Stop Dose Admin Acetaminophen 1,000 mg 11/11/18 15:28 11/11/18 16:05 Ofirmev Injection - IVPB 11/11/18 15:29 1,000 mg ONCE ONE Administration Albuterol Sulfate 3 amp 11/11/18 18:10 11/11/18 19:34 Ventolin 0.083% Nebulizer Soln - NEB 11/11/18 18:11 3 amp ONCE ONE Administration Albuterol/Ipratropium 3 amp 11/11/18 15:28 11/11/18 16:05 Duoneb - NEB 11/11/18 15:29 3 amp ONCE ONE Administration Enoxaparin Sodium 88 mg 11/11/18 18:06 11/11/18 19:12 Lovenox - SQ 11/11/18 18:07 88 mg ONCE ONE Administration Sodium Chloride 1,000 mls @ 1,000 mls/hr 11/11/18 15:28 11/11/18 16:05 Normal Saline - IV 11/11/18 16:27 1,000 mls/hr ASDIR STA Administration Medical Decision Making - Medical Decision Making 11/11/18 1915 Pt received on sign out from Dr. Aragon. CXR shows possible community acquired pneumonia. Given her penicillin allergy ( anaphylaxis), will treat with vanc, aztreonam, azithromycin. *DC/Admit/Observation/Transfer Diagnosis at time of Disposition: Hypoxia, Shortness of breath - Discharge Dispostion Condition at time of disposition: Guarded - Referrals Referrals: Pepe Dominguez [Primary Care Provider] - - Patient Instructions - Post Discharge Activity
--- NOTE | 2018-11-11 20:04 | PN ---
Teaching Attending Note Name of Resident: Justin Wong ATTENDING PHYSICIAN STATEMENT I saw and evaluated the patient. I reviewed the resident's note and discussed the case with the resident. I agree with the resident's findings and plan as documented. SUBJECTIVE: Patient is a 28 year old woman with a PMH of Opioid abuse, Penicillin allergy, Cholecystectomy, Diogenes's thyroiditis, Breast implants, Seizure disorder, Superior mesenteric artery (SMA) syndrome, Anxiety and Sleep walking who presents to the ER from Urgent Care with SOB and hypoxia. Patient states she has a history of Opioid abuse, relapsed on Friday (11/02/18), overdosed on Friday (11/06/18), and was seen at [facility] on Friday (11/07/28), and ever since then she has not been feeling well. Patient states these symptoms feel like her withdrawal symptoms and she did not take her Klonopin today. Has had some atypical chest pain. The patient denies headache and dizziness. Denies fever, chills, cough, nausea, vomiting, diarrhea and constipation. Denies dysuria, frequency, urgency and hematuria. No FH of VTE, no recent travel and does not use oral contraceptive pills. Has history of irregular menses. OBJECTIVE: Alert Vital Signs Period Temp Pulse Resp BP Sys/Woody Pulse Ox Last 24 Hr 99.3 F-102.2 F 82-101 20-24 108-131/59-82 95-96 HEENT: No Jaundice, eye redness or discharge, PERRLA, EOMI. Normocephalic, atraumatic. External ears are normal and hearing is grossly intact. No nasal discharge. Neck: Supple, nontender. No palpable adenopathy or thyromegaly. No JVD Chest: Good effort. Clear to auscultation and percussion. Heart: Regular. No S3, rub or murmur Abdomen: Not distended, soft, nontender and no HSM. No rebound or guarding. Normal bowel sounds. Ext: Peripheral pulses intact. No leg edema. Skin: Warm and dry. No petechiae, rash or ecchymosis. Neuro: Alert. Oriented x3. CN 2-12 grossly intact. Sensation grossly intact in all four extremities and DTR are symmetric. Psych: Appropriate mood and affect. Good insight. Current Medications Generic Name Dose Route Start Last Admin Trade Name Freq PRN Reason Stop Dose Admin Azithromycin 500 mg/ Dextrose 250 mls @ 250 mls/hr 11/11/18 20:00 IVPB 11/11/18 20:59 ONCE ONE Home Medications Medication Instructions Recorded Lamotrigine [LaMICtal -] 200 mg PO DAILY 10/09/13 Thyroid,Pork [[place] Thyroid] 120 mg PO DAILY 10/09/13 Alprazolam [Xanax -] 1 mg PO DAILY PRN 03/06/15 Buprenorphine HCl/Naloxone HCl 24 mg SL DAILY 05/10/18 [Suboxone 8 mg-2 mg Sl Tablets] Fluvoxamine Maleate [Luvox -] 300 mg PO DAILY 05/10/18 traZODone HCL [Trazodone HCl] 50 mg PO DAILY 05/10/18 Abnormal Lab Results 11/11/18 11/11/18 11/11/18 15:44 15:44 15:44 MPV 7.4 L PT with INR 13.50 H INR 1.14 H D-Dimer POC VBG pO2 VBG O2 Sat (Reji) VBG Base Excess Anion Gap 7 L BUN 4.0 L Calcium 8.4 L AST 61 H ALT 96 H Alkaline Phosphatase 307 H B-Natriuretic Peptide Total Protein 6.2 L Urine pH Ur Specific [place] Benzodiazepines Screen 11/11/18 11/11/18 11/11/18 15:44 15:44 16:30 MPV PT with INR INR D-Dimer 869 H POC VBG pO2 61.7 H VBG O2 Sat (Reji) 91.6 H VBG Base Excess 2.1 H Anion Gap BUN Calcium AST ALT Alkaline Phosphatase B-Natriuretic Peptide 1426.3 H Total Protein Urine pH Ur Specific [place] Benzodiazepines Screen 11/11/18 11/11/18 16:41 18:55 MPV PT with INR INR D-Dimer POC VBG pO2 VBG O2 Sat (Reji) VBG Base Excess Anion Gap BUN Calcium AST ALT Alkaline Phosphatase B-Natriuretic Peptide Total Protein Urine pH 8.5 H Ur Specific [place] 1.006 L Benzodiazepines Screen Positive A* ASSESSMENT AND PLAN: 1. Sepsis due to pneumonia/Rule out PE - CXR shows RML/RLL infiltrate with trachea deviation to the right. Sepsis workup done and being treated as HCAP with vancomycin, azithromycin and aztreonam. Will get a urine legionella antigen , chest CT tonight and a V/Q scan to rule out PE since she is allergic to contrast dye. Get ECHO and consult pulmonary. Got full dose lovenox in the ER empirically for PE. EKG shows NSR with no ST-T wave changes and initial troponin is negative. Will monitor on telemetry and rule out ACS. Has chronic elevation of LFTs - will get hepatitis serology and upper abdomen sonogram and trend LFTS. We will continue comprehensive care of all her comorbid conditions. 2. Opioid abuse - Monitor closely for drug withdrawal and continue Klonopin recently prescribed by her Psychiatrist. Do neurochecks and implement seizure, fall and aspiration precautions. Treat with thiamine and folic acid and monitor electrolytes (Ca,Mg,K,P). Counseled patient about abstaining from illicit drugs. Will consult activity specialist and refer to drug detox upon discharge. 3. Obesity Counseled on the risks associated with obesity. Will provide patient all the necessary assistance, counseling and positive reinforcement to facilitate weight loss. Consult inventory associate. 4. DVT prophylaxis - On full dose Lovenox pending V/Q scan. 5. Advance directives - Full code
[2018-11-11] MEDS ORDERED: AZITHROMYCIN IVPB 500 MG/250 ML BAG IVPB ONE (20:43)
[2018-11-11] MEDS ORDERED: AZTREONAM 1 GM VIAL (RESTRICTED TO ID) ONE (20:43)
[2018-11-11] MEDS ORDERED: VANCOMYCIN 1 GRAM (PRE-DOCKED) 1,000 MG/250 ML BAG IVPB ONE (20:43)
--- NOTE | 2018-11-11 23:34 | HP ---
CHIEF COMPLAINT: SOB, lethargy, and dizziness for the past 3 days Headache, chest pain and nausea for the past for the past 1 day PCP: Pepe Fox HISTORY OF PRESENT ILLNESS: The patient is a 28 year old female with PMH significant for borderline personality disorder, obstructive sleep apnea, superior mesenteric artery syndrome, Diogenes's thyroiditis, and opioid abuse (percocet, vicodin). She presented to the ER with complaints of shortness of breath, dizziness, and lethargy for the past 3 days, and chest discomfort associated with nausea for the past 1 day. She has a history of recreational use of Xanax, Vicodin, and Percocet, but had not used any for the past 2 years until last Friday (11/02), when she took multiple pills of Xanax. She does not attribute this episode of relapse to any particular precipitating factor, but states that the general stresses of life as well as the ease of availability of these drugs were contributing factors. From Friday to Friday (11/02-11/05), she took multiple pills of Xanax, and then on (11/06), she took multiple pills of Xanax, Vicodin, and Percocet. She does not remember how many she took, and she only remembers waking up at [facility] the next day. She was discharged after staying overnight, and states that she has felt SOB, lethargic, and dizzy since her discharge. Her SOB started 3 days ago, is episodic, intermittent, non-exertional, and non- positional. Her dizziness also started 3 days ago, is episodic, described as the room spinning around her during the episodes. The headache began 2-3 hours ago, was sudden in onset, began in her forehead and radiates to the back of her head, is sharp in quality, and there are no relieving or aggravating factors. The chest pain and discomfort is substernal, started 1 day ago, was sudden in onset, rated as 2/10 in intensity, constant in nature, described as pressing in quality, radiating to her left axilla. Her LMP 2as October 30-, and she has had irregular menstrual cycles for the past 2 years. She does not take contraceptives, her last sexual encounter in the past 2 years was last month. ER course was notable for: (1) CXR: Rt middle lobe infiltrates (2) d-dimer 869 (3) Given Azithro, Aztreonam Recent Travel: None PAST MEDICAL HISTORY: Psychiatrist: Dr Cristi Garces borderline personality disorder (on Lamotrigine) obstructive sleep apnea Diogenes's thyroiditis (on Synthroid) opioid abuse (percocet, vicodin) Was hospitalized for 2 days after a seizure 3 years ago PAST SURGICAL HISTORY: superior mesenteric artery syndrome cholecystectomy breast implants (silicone) Social History: Smoking: Alcohol: Drugs: Family History: Allergies cefdinir [Cefdinir] Allergy (Verified 11/11/18 14:29) cephalexin [From Keflex] Allergy (Verified 11/11/18 14:29) haloperidol [From Haldol] Allergy (Verified 11/11/18 14:29) haloperidol lactate [From Haldol] Allergy (Verified 11/11/18 14:29) Penicillins Allergy (Verified 11/11/18 14:29) shellfish derived Allergy (Verified 11/11/18 14:29) Sulfa (Sulfonamide Antibiotics) Allergy (Verified 11/11/18 14:29) venom-honey bee [bee venom (honey bee)] Allergy (Verified 11/11/18 14:29) iv contrast Allergy (Uncoded 11/11/18 14:29) HOME MEDICATIONS: Home Medications Medication Instructions Recorded Lamotrigine [LaMICtal -] 200 mg PO DAILY 10/09/13 Thyroid,Pork [[place] Thyroid] 120 mg PO DAILY 10/09/13 Alprazolam [Xanax -] 1 mg PO DAILY PRN 03/06/15 Buprenorphine HCl/Naloxone HCl 24 mg SL DAILY 05/10/18 [Suboxone 8 mg-2 mg Sl Tablets] Fluvoxamine Maleate [Luvox -] 300 mg PO DAILY 05/10/18 traZODone HCL [Trazodone HCl] 50 mg PO DAILY 05/10/18 REVIEW OF SYSTEMS CONSTITUTIONAL: generalized weakness Absent: fever, chills, diaphoresis, malaise, loss of appetite, weight change HEENT: Absent: rhinorrhea, nasal congestion, throat pain, throat swelling, difficulty swallowing, mouth swelling, ear pain, eye pain, visual changes CARDIOVASCULAR: chest pain Absent: syncope, palpitations, irregular heart rate, lightheadedness, peripheral edema RESPIRATORY: shortness of breath Absent: cough, dyspnea with exertion, orthopnea, wheezing, stridor, hemoptysis GASTROINTESTINAL: nausea Absent: abdominal pain, abdominal distension, vomiting, diarrhea, constipation, melena, hematochezia GENITOURINARY: Absent: dysuria, frequency, urgency, hesitancy, hematuria, flank pain, genital pain MUSCULOSKELETAL: Absent: myalgia, arthralgia, joint swelling, back pain, neck pain SKIN: Absent: rash, itching, pallor HEMATOLOGIC/IMMUNOLOGIC: Absent: easy bleeding, easy bruising, lymphadenopathy, frequent infections ENDOCRINE: Absent: unexplained weight gain, unexplained weight loss, heat intolerance, cold intolerance NEUROLOGIC: dizziness Absent: headache, focal weakness or paresthesias, unsteady gait, seizure, mental status changes, bladder or bowel incontinence PSYCHIATRIC: Absent: anxiety, depression, suicidal or homicidal ideation, hallucinations. PHYSICAL EXAMINATION Vital Signs - 24 hr 11/11/18 11/11/18 11/11/18 14:29 16:54 18:24 Temperature 102.2 F H 99.3 F Pulse Rate 85 Pulse Rate [ 101 H 82 Apical] Respiratory 24 H 20 Rate Blood Pressure 131/82 Blood Pressure 108/59 L [Right Arm] O2 Sat by Pulse 96 95 96 Oximetry (%) 11/11/18 22:50 Temperature 99 F Pulse Rate Pulse Rate [ 89 Apical] Respiratory 19 Rate Blood Pressure Blood Pressure 122/67 [Right Arm] O2 Sat by Pulse 97 Oximetry (%) GENERAL: AOx3, appears to be distressed and complaining of nausea HEAD: Normal with no signs of trauma. EYES: Pupils equal, round and reactive to light, extraocular movements intact, sclera anicteric, conjunctiva clear. No lid lag. EARS, NOSE, THROAT: Ears normal, nares patent, oropharynx clear without exudates. Moist mucous membranes. NECK: Normal range of motion, supple without lymphadenopathy, JVD, or masses. LUNGS: decreased breath sounds B/L HEART: Regular rate and rhythm, normal S1 and S2 without murmur, rub or gallop. ABDOMEN: Soft, nontender, not distended, normoactive bowel sounds, no guarding, no rebound, no masses. No hepatomegaly or splenomegaly. MUSCULOSKELETAL: Normal range of motion at all joints. No bony deformities or tenderness. No CVA tenderness. UPPER EXTREMITIES: 2+ pulses, warm, well-perfused. No cyanosis. No clubbing. No peripheral edema. LOWER EXTREMITIES: 2+ pulses, warm, well-perfused. No calf tenderness. No peripheral edema. NEUROLOGICAL: Cranial nerves II-XII intact. Normal speech. Normal gait. PSYCHIATRIC: Cooperative. Good eye contact. Appropriate mood and affect. SKIN: Warm, dry, normal turgor, no rashes or lesions noted, normal capillary refill. Laboratory Results - last 24 hr 11/11/18 11/11/18 11/11/18 15:44 15:44 15:44 WBC 4.9 RBC 3.65 Hgb 11.1 Hct 32.8 D MCV 89.9 MCH 30.5 MCHC 33.9 RDW 13.9 Plt Count 169 D MPV 7.4 L Absolute Neuts (auto) 3.1 Neutrophils % 64.3 Lymphocytes % 24.5 D Monocytes % 9.0 Eosinophils % 1.8 Basophils % 0.4 Nucleated RBC % 0 Platelet Estimate Decreased Platelet Comment No clumping noted PT with INR INR PTT (Actin FS) Cancelled D-Dimer VBG pH POC VBG pCO2 POC VBG pO2 VBG HCO3 VBG O2 Sat (Reji) VBG Base Excess Sodium 137 Potassium 4.1 Chloride 102 Carbon Dioxide 28 Anion Gap 7 L BUN 4.0 L Creatinine 0.8 Est GFR (CKD-EPI)AfAm 117.10 Est GFR (CKD-EPI)NonAf 101.04 Random Glucose 89 Lactic Acid Calcium 8.4 L Total Bilirubin 0.4 AST 61 H ALT 96 H Alkaline Phosphatase 307 H Troponin I B-Natriuretic Peptide Total Protein 6.2 L Albumin 3.4 TSH Urine Color Urine Appearance Urine pH Ur Specific [place] Urine Protein Urine Glucose (UA) Urine Ketones Urine Blood Urine Nitrite Urine Bilirubin Urine Urobilinogen Ur Leukocyte Esterase Urine HCG, Qual Opiates Screen Methadone Screen Barbiturate Screen Phencyclidine Screen Ur Amphetamines Screen MDMA (Ecstasy) Screen Benzodiazepines Screen Cocaine Screen U Marijuana (THC) Screen 11/11/18 11/11/18 11/11/18 15:44 15:44 15:44 WBC RBC Hgb Hct MCV MCH MCHC RDW Plt Count MPV Absolute Neuts (auto) Neutrophils % Lymphocytes % Monocytes % Eosinophils % Basophils % Nucleated RBC % Platelet Estimate Platelet Comment PT with INR 13.50 H INR 1.14 H PTT (Actin FS) 34.5 D-Dimer VBG pH 7.40 POC VBG pCO2 43.4 POC VBG pO2 61.7 H VBG HCO3 26.6 VBG O2 Sat (Reji) 91.6 H VBG Base Excess 2.1 H Sodium Potassium Chloride Carbon Dioxide Anion Gap BUN Creatinine Est GFR (CKD-EPI)AfAm Est GFR (CKD-EPI)NonAf Random Glucose Lactic Acid 0.6 Calcium Total Bilirubin AST ALT Alkaline Phosphatase Troponin I B-Natriuretic Peptide Total Protein Albumin TSH Urine Color Urine Appearance Urine pH Ur Specific [place] Urine Protein Urine Glucose (UA) Urine Ketones Urine Blood Urine Nitrite Urine Bilirubin Urine Urobilinogen Ur Leukocyte Esterase Urine HCG, Qual Opiates Screen Methadone Screen Barbiturate Screen Phencyclidine Screen Ur Amphetamines Screen MDMA (Ecstasy) Screen Benzodiazepines Screen Cocaine Screen U Marijuana (THC) Screen 11/11/18 11/11/18 11/11/18 15:44 16:30 16:41 WBC RBC Hgb Hct MCV MCH MCHC RDW Plt Count MPV Absolute Neuts (auto) Neutrophils % Lymphocytes % Monocytes % Eosinophils % Basophils % Nucleated RBC % Platelet Estimate Platelet Comment PT with INR INR PTT (Actin FS) D-Dimer 869 H VBG pH POC VBG pCO2 POC VBG pO2 VBG HCO3 VBG O2 Sat (Reji) VBG Base Excess Sodium Potassium Chloride Carbon Dioxide Anion Gap BUN Creatinine Est GFR (CKD-EPI)AfAm Est GFR (CKD-EPI)NonAf Random Glucose Lactic Acid Calcium Total Bilirubin AST ALT Alkaline Phosphatase Troponin I < 0.02 B-Natriuretic Peptide 1426.3 H Total Protein Albumin TSH 2.37 Urine Color Urine Appearance Urine pH Ur Specific [place] Urine Protein Urine Glucose (UA) Urine Ketones Urine Blood Urine Nitrite Urine Bilirubin Urine Urobilinogen Ur Leukocyte Esterase Urine HCG, Qual Negative Opiates Screen Methadone Screen Barbiturate Screen Phencyclidine Screen Ur Amphetamines Screen MDMA (Ecstasy) Screen Benzodiazepines Screen Cocaine Screen U Marijuana (THC) Screen 11/11/18 11/11/18 16:41 18:55 WBC RBC Hgb Hct MCV MCH MCHC RDW Plt Count MPV Absolute Neuts (auto) Neutrophils % Lymphocytes % Monocytes % Eosinophils % Basophils % Nucleated RBC % Platelet Estimate Platelet Comment PT with INR INR PTT (Actin FS) D-Dimer VBG pH POC VBG pCO2 POC VBG pO2 VBG HCO3 VBG O2 Sat (Reji) VBG Base Excess Sodium Potassium Chloride Carbon Dioxide Anion Gap BUN Creatinine Est GFR (CKD-EPI)AfAm Est GFR (CKD-EPI)NonAf Random Glucose Lactic Acid Calcium Total Bilirubin AST ALT Alkaline Phosphatase Troponin I B-Natriuretic Peptide Total Protein Albumin TSH Urine Color Yellow Urine Appearance Clear Urine pH 8.5 H Ur Specific [place] 1.006 L Urine Protein Negative Urine Glucose (UA) Negative Urine Ketones Negative Urine Blood Negative Urine Nitrite Negative Urine Bilirubin Negative Urine Urobilinogen 0.2 Ur Leukocyte Esterase Negative Urine HCG, Qual Opiates Screen Negative Methadone Screen Negative Barbiturate Screen Negative Phencyclidine Screen Negative Ur Amphetamines Screen Negative MDMA (Ecstasy) Screen Negative Benzodiazepines Screen Positive A* Cocaine Screen Negative U Marijuana (THC) Screen Negative ASSESSMENT/PLAN: #Sepsis 2/2 pneumonia - CXR: Rt middle and lower lobe infiltrate - CT: Read pending, prelim report suggests B/L infiltrates - Presented with temp 102.2 - Allergic to Penicillin - Azithromycin, Aztreonam given - ID consult placed #R/O PE - Elevated d-dimer 869 - Can not do CTA, allergic to contrast - CT Chest wo contrast - VQ Scan - Echo to check for impaired RV function - elevated BNP 1426.3 (may be elevated due to right ventricular strain in PE) - Lovenox 88mg given #Transaminitis - AST 61, ALT 96, ALP 307 - Hx of Cholecystectomy - US Abdomen ordered - Hep serology ordered #Chest pain - N/S @ 75 - EKG normal - Trop 0.02 x1, second pending #FEN - Follow Mg, Phos - Regular diet #DVT -Lovenox 88mg given in ER Visit type - Emergency Visit Emergency Visit: Yes ED Registration Date: 11/11/18 Care time: The patient presented to the Emergency Department on the above date and was hospitalized for further evaluation of their emergent condition. - New Patient This patient is new to me today: Yes Date on this admission: 11/17/18 - Critical Care Critical Care patient: No ATTENDING PHYSICIAN STATEMENT I saw and evaluated the patient. I reviewed the resident's note and discussed the case with the resident. I agree with the resident's findings and plan as documented. SUBJECTIVE: OBJECTIVE: ASSESSMENT AND PLAN:
[2018-11-12] MEDS ORDERED: NICOTINE 14 MG/24 HOURS TOPICAL PATCH TD PRN (00:28)
[2018-11-12] MEDS ORDERED: GABAPENTIN 300 MG PO PRN (00:28)
[2018-11-12] MEDS ORDERED: SYNTHROID 125 MCG PO SCH (00:30)
[2018-11-12] MEDS ORDERED: ONDANSETRON 4 MG/2 ML VIAL IVPUSH PRN (00:30)
[2018-11-12] MEDS: ACETAMINOPHEN 325 MG TABLET (FP) PO PRN ×2 (01:10→15:34)
[2018-11-12] MEDS: SODIUM CHLORIDE 1,000 ML IV SCH (01:11)
[2018-11-12] MEDS ORDERED: traZODone HCL 50 MG TABLET (FP) PO ONE (01:32)
[2018-11-12] MEDS ORDERED: GABAPENTIN 300 MG CAPSULE (FP) PO PRN (02:32)
[2018-11-12] MEDS ORDERED: clonazePAM 0.5 MG TABLET PO ONE (02:46)
[2018-11-12] MEDS: LEVOTHYROXINE NA 125 MCG TABLET (FP) PO SCH (06:50)
[2018-11-12] MEDS: GABAPENTIN 300 MG CAPSULE (FP) PO SCH ×3 (06:50→21:28)
[2018-11-12 07:50] LABS: BASO % 0.2 % (0-2.0); EOS % 0.6 % (0-4.5); HEMATOCRIT 27.2 % (32.4-45.2); HEMOGLOBIN 9.5 GM/dL (10.7-15.3); LYMPH % 34.8 % (8-40); MCH 31.3 pg (25.7-33.7); MEAN CELL VOLUME 89.5 fl (80-96); MEAN PLT VOLUME 7.7 fl (7.5-11.1); MONO % 11.4 % (3.8-10.2); PLATELET COUNT 151 K/MM3 (134-434); RBC 3.04 M/mm3 (3.60-5.2); RDW 13.5 % (11.6-15.6); WHITE BLOOD COUNT 3.9 K/mm3 (4.0-10.0)
[2018-11-12 08:04] LABS: ALBUMIN 2.9 g/dl (3.4-5.0); ALK PHOS 265 U/L (45-117); ANION GAP 6 MMOL/L (8-16); BILIRUBIN,TOTAL 0.6 mg/dL (0.2-1); BLOOD UREA NITROGEN 4.6 mg/dL (7-18); CALCIUM 8.3 mg/dL (8.5-10.1); CHLORIDE 107 mmol/L (98-107); CO2 29 mmol/L (21-32); CREATININE 0.6 mg/dL (0.55-1.3); GLUCOSE,RANDOM 91 mg/dL (74-106); MAGNESIUM 2.2 mg/dL (1.8-2.4); PHOSPHOROUS 4.5 mg/dL (2.5-4.9); POTASSIUM 3.5 mmol/L (3.5-5.1); SGOT/AST 46 U/L (15-37); SGPT/ALT 84 U/L (13-61); SODIUM 142 mmol/L (136-145); TOT PROT 5.4 g/dl (6.4-8.2)
[2018-11-12] MEDS ORDERED: ALBUTEROL SO4 2.5/IPRATROPIUM 0.5 INH SOL 3 ML VIAL.NEB. NEB PRN ×2 (08:42→14:04)
[2018-11-12] MEDS ORDERED: PT OWN MED DRAWER 7, Y5N ONE ×3 (09:07→16:40)
[2018-11-12] MEDS ORDERED: AZTREONAM 2 GM in DEXTROSE 5%-WATER 100 ML IVPB SCH (10:00)
[2018-11-12] MEDS ORDERED: lamoTRIgine 100 MG TABLET (FP) PO SCH (10:00)
[2018-11-12] MEDS ORDERED: FLUVOXAMINE MALEATE PO SCH (10:00)
[2018-11-12] MEDS ORDERED: KLONOPIN 1 MG PO SCH (10:00)
[2018-11-12] MEDS ORDERED: LEVOTHYROXINE NA 125 MCG TABLET (FP) PO SCH (10:00)
[2018-11-12] MEDS ORDERED: PATIENT'S OWN MEDICATION (NON-FORMULARY) (Clonazepam [Klonopin] 1 MG) PO SCH (10:00)
[2018-11-12] MEDS ORDERED: VANCOMYCIN 1 GM in D5W (PRE-DOCKED) 1,000 MG/250 ML IVPB SCH (10:00)
[2018-11-12] MEDS ORDERED: AZITHROMYCIN IVPB 500 MG/250 ML BAG IVPB SCH (10:00)
[2018-11-12] MEDS ORDERED: clonazePAM 0.5 MG TABLET PO SCH (10:00)
[2018-11-12] MEDS: ENOXAPARIN NA (PORCINE) 100 MG/1 ML DISP.SYRIN SQ SCH ×2 (10:36→21:28)
[2018-11-12] MEDS: lamoTRIgine 100 MG TABLET (FP) PO SCH ×2 (10:36→21:28)
--- NOTE | 2018-11-12 11:12 | ECHO ---
Name: CHRISTOPHER KILPATRICK Exam:Adult Echocardiogram Study Date: 11/12/2018 08:05 AM Age: 28 yrs Reason For Study: Baseline Height: 59 in Weight: 205 lb BSA: 1.9 m2 MMode/2D Measurements & Calculations IVSd: 0.80 cm Ao root diam: 2.3 cm LVIDd: 3.2 cm ACS: 1.7 cm LVIDs: 1.8 cm LVPWd: 1.1 cm EDV(Teich): 40.8 ml LVOT diam: 1.9 cm ESV(Teich): 10.2 ml Doppler Measurements & Calculations MV E max lorenzo: 88.1 cm/sec MV A max lorenzo: 66.1 cm/sec MV dec slope: 350.6 cm/sec2 MV E/A: 1.3 TR max lorenzo: 248.4 cm/sec TR max P.7 mmHg Procedure A two-dimensional transthoracic echocardiogram with color flow and Doppler was performed. The study w as technically difficult with many images being suboptimal in quality. Left Ventricle The left ventricular size, thickness and function are normal. The left ventricular ejection fraction is normal. Ejection Fraction = 60-65%. The left ventricular wall motion is normal. Right Ventricle The right ventricle is normal in size and function. Atria Normal left and right atrial size and function. Mitral Valve There is no mitral regurgitation noted. Tricuspid Valve There is mild tricuspid regurgitation. There was insufficient TR detected to calculate RV systolic pr essure. Aortic Valve The aortic valve is trileaflet. No hemodynamically significant valvular aortic stenosis. No aortic regurgitation is present. Pulmonic Valve There is no pulmonic valvular regurgitation. Great Vessels The aortic root is normal size. Pericardium/Pleura There is no pericardial effusion. Interpretation Summary The study was technically difficult with many images being suboptimal in quality. The left ventricular size, thickness and function are normal The right ventricle is normal in size and function. There is mild tricuspid regurgitation. MD Stanford Wilcox 11/12/2018 11:12 AM
[2018-11-12] MEDS ORDERED: ALBUTEROL SO4 2.5/IPRATROPIUM 0.5 INH SOL 3 ML VIAL.NEB. NEB ONE (13:59)
[2018-11-12] MEDS ORDERED: BUPRENORPHINE/NALOXONE 8 MG/2 MG FILM PACKET SL ONE (14:00)
--- NOTE | 2018-11-12 14:14 | PN ---
Teaching Attending Note Name of Resident: Shannan Murphy ATTENDING PHYSICIAN STATEMENT I saw and evaluated the patient. I reviewed the resident's note and discussed the case with the resident. I agree with the resident's findings and plan as documented. SUBJECTIVE: Patient is admitted overnight, wheezing, agitated asking for her Suboxone , mother at bedside. OBJECTIVE: Vital Signs Temperature 98.9 F 11/12/18 13:50 Pulse Rate 74 11/12/18 13:50 Respiratory Rate 18 11/12/18 13:50 Blood Pressure 117/76 11/12/18 13:50 O2 Sat by Pulse Oximetry (%) 97 11/12/18 00:41 GENERAL: The patient is awake, alert, and in moderate distress. HEAD: Normal with no signs of trauma. EYES: PERRL, extraocular movements intact, sclera anicteric, conjunctiva clear. ENT: Ears normal, oropharynx clear without exudates, moist mucous membranes. NECK: Trachea midline, full range of motion, supple. LUNGS: decreased BS BL, positive for wheezes, no crackles, no accessory muscle use. HEART: Regular rate and rhythm, S1, S2 without murmur, rub or gallop. ABDOMEN: Soft, NT,ND, normoactive bowel sounds, no guarding, no rebound, no hepatosplenomegaly, no masses. EXTREMITIES: 2+ pulses, warm, well-perfused, no edema. NEUROLOGICAL: Cranial nerves II through XII grossly intact. Normal speech, gait not observed. PSYCH: Normal mood, normal affect. SKIN: Warm, dry, normal turgor, no rashes or lesions noted CBCD WBC 3.9 K/mm3 (4.0-10.0) L 11/12/18 06:17 RBC 3.04 M/mm3 (3.60-5.2) L 11/12/18 06:17 Hgb 9.5 GM/dL (10.7-15.3) L 11/12/18 06:17 Hct 27.2 % (32.4-45.2) L D 11/12/18 06:17 MCV 89.5 fl (80-96) 11/12/18 06:17 MCHC 35.0 g/dl (32.0-36.0) 11/12/18 06:17 RDW 13.5 % (11.6-15.6) 11/12/18 06:17 Plt Count 151 K/MM3 (134-434) 11/12/18 06:17 MPV 7.7 fl (7.5-11.1) 11/12/18 06:17 CMP Sodium 142 mmol/L (136-145) 11/12/18 06:17 Potassium 3.5 mmol/L (3.5-5.1) 11/12/18 06:17 Chloride 107 mmol/L (98-107) 11/12/18 06:17 Carbon Dioxide 29 mmol/L (21-32) 11/12/18 06:17 Anion Gap 6 MMOL/L (8-16) L 11/12/18 06:17 BUN 4.6 mg/dL (7-18) L 11/12/18 06:17 Creatinine 0.6 mg/dL (0.55-1.3) 11/12/18 06:17 Random Glucose 91 mg/dL (74-106) 11/12/18 06:17 Calcium 8.3 mg/dL (8.5-10.1) L 11/12/18 06:17 Total Bilirubin 0.6 mg/dL (0.2-1) 11/12/18 06:17 AST 46 U/L (15-37) H 11/12/18 06:17 ALT 84 U/L (13-61) H 11/12/18 06:17 Alkaline Phosphatase 265 U/L (45-117) H 11/12/18 06:17 Total Protein 5.4 g/dl (6.4-8.2) L 11/12/18 06:17 Albumin 2.9 g/dl (3.4-5.0) L 11/12/18 06:17 CARDIAC ENZYMES Troponin I < 0.02 ng/ml (0.00-0.05) 11/12/18 06:17 Current Medications Generic Name Dose Route Start Last Admin Trade Name Freq PRN Reason Stop Dose Admin Acetaminophen 650 mg 11/12/18 00:30 11/12/18 01:10 Tylenol - PO 650 mg Q6H PRN Administration Fever Or Pain Albuterol/Ipratropium 1 amp 11/12/18 08:42 11/12/18 09:13 Duoneb - NEB 1 amp Q6H PRN Administration SHORTNESS OF BREATH Albuterol/Ipratropium 1 amp 11/12/18 14:04 Duoneb - NEB Q4H PRN SHORTNESS OF BREATH Clonazepam 1 mg 11/12/18 10:00 11/12/18 10:36 Klonopin - PO 1 mg BID JESSENIA Administration Enoxaparin Sodium 90 mg 11/12/18 10:00 11/12/18 10:36 Lovenox - SQ 90 mg BID JESSENIA Administration Fluvoxamine Maleate 150 mg 11/12/18 10:00 11/12/18 10:37 Luvox - PO 150 mg BID JESSENIA Administration Gabapentin 300 mg 11/12/18 06:00 11/12/18 14:03 Neurontin - PO Not Given TID JESSENIA Sodium Chloride 1,000 mls @ 75 mls/hr 11/12/18 00:30 11/12/18 01:11 Normal Saline - IV 75 mls/hr ASDIR JESSENIA Administration Aztreonam 2 gm/ Dextrose 100 mls @ 100 mls/hr 11/12/18 10:00 11/12/18 14:10 IVPB 11/13/18 02:59 100 mls/hr Q8H-IV JESSENIA Administration Levofloxacin 750 mg in 150 mls @ 100 mls/hr 11/12/18 14:06 Levaquin 750 Mg Premixed Ivpb - IVPB 11/12/18 15:35 ONCE ONE Protocol Lamotrigine 200 mg 11/12/18 10:00 11/12/18 10:36 Lamictal - PO 200 mg BID JESSENIA Administration Levothyroxine Sodium 125 mcg 11/12/18 07:00 11/12/18 06:50 Synthroid - PO 125 mcg DAILY@0700 JESSENIA Administration Nicotine 14 mg 11/12/18 00:28 11/12/18 11:22 Nicoderm Patch - TD 14 mg DAILY PRN Administration NICOTINE REPLACEMENT RX Trazodone HCl 50 mg 11/12/18 22:00 Desyrel - PO HS JESSENIA CTA in am for possible PE CXR: Rt middle and lower lobe infiltrate - Chest/abd CT: bilateral PNA in upper lobes and R middle lobe. Trace bilateral pleural effusion. Splenomegaly. -Abd US: s/p cholecystectomy, fatty infiltrate of liver ASSESSMENT/PLAN: Patient is a 28 year old woman with pmhx of borderline personality disorder, GREY , SMA syndrome, hashimotos, hemorrhoids, and prescription drug abuse including percocet, vicodin, and xanax. who presented to the ED on 11/11 with 3 days of SOB , dizziness, and lethargy and 1 day of vomiting and was found to have BL Pneumonia. # Bilateral Pneumonia - ON IV Levaquin 500mg since patient is allergic to PCN and Vancomycin . Presented with temp 102.2 - ID consult appreciated , Dr. Olivas seen the patient, Cultures pending- sputum , legionella, and pneumococcal AG pending. - F/U HIV test #Possible PE: NEed CTA , will reavaluate once stable, on Lovenox 90mg sq biD #Transaminitis: US Abdomen showing fatty infiltrates of liver , F/U Hep serology , NO Fat diet and weight loss #Opioid dependency: Dr. Lewis consulted, appreciate her recommendations. #Hx of borderline personality disorder continue home meds, DVT Px: Lovenox 90mg BID
[2018-11-12] MEDS: AZTREONAM 2 GM in DEXTROSE 5%-WATER 100 ML IVPB SCH (16:05)
--- NOTE | 2018-11-12 16:08 | PN ---
Progress Note (short form) - Note Progress Note: ID CONSULT DICTATED BILATERAL PNEUMONIA ? ASP ? COMMUNITY ACQ V. ATYPICAL S/P SYNCOPE/ DRUG OD GREY MULTIPLE ANTIBIOTIC ALLERGIES AWAIT C/S SPUTUM C/S, LEGIONELLA/ PNEUMOCOCCAL AG HIV TEST ( PT CONSENTS) EMPIRIC VANCOMYCIN/ LEVAQUIN
--- NOTE | 2018-11-12 16:35 | CONS ---
INFECTIOUS DISEASE CONSULTATION DATE OF CONSULTATION: DATE OF DICTATION: 11/12/2018 The patient is a 28-year-old female with a history of bipolar disorder and opiate addiction, evaluated for pneumonia. The patient had a history of opiate addiction and had been off all opiates for the past 2 years or so. Recently, she relapsed and began using opiates. According to the notes on Tuesday, November 06, 2018, she overdosed and was unresponsive. She was brought to [facility] where she was admitted overnight. She was apparently discharged home. Since discharge, she reports worsening shortness of breath, fatigue, and fever. Patient complained of profound fatigue and increasing dyspnea on exertion for the past 3 days. She also reported fever to 102. She presented to the emergency room where she was noted to have temperature of 102.2. She also complained of a nonproductive cough. She denied any chest pain. CAT scan shows bilateral patchy infiltrates, primarily in the upper lobes bilaterally. At the present time, she is awake and alert. Her breathing is non-labored on nasal cannula. She denies any ill contacts. 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 No recent hospitalizations. She states she has not received influenza or pneumococcal vaccines. Her HIV status is reportedly negative; however, she consents to retesting. PAST MEDICAL HISTORY: Positive for bipolar disorder, opiate addiction, obstructive sleep apnea, Diogenes disease, superior mesenteric artery syndrome. PAST SURGICAL HISTORY: Status post cholecystectomy and breast implants. ALLERGIES: Multiple medications including PENICILLIN and CEPHALOSPORINS to which she reports an anaphylactic reaction. Patient is also allergic to SULFA, HALDOL, and IV CONTRAST. SOCIAL HISTORY: As per HPI. She has positive smoking history. No history of intravenous drug use. No recent travel. She has a pet cat at home. SYSTEMS REVIEW: Neurologic: Positive for syncopal episode. No seizure activity or focal weakness. Cardiac: Negative chest pain or palpitations. Respiratory: As per HPI. Gastrointestinal: Negative vomiting or diarrhea. Genitourinary: Negative for urinary tract infection. LABORATORY DATA: White count 3.9; neutrophils 53, lymphocytes 34, monocytes 11. Creatinine 0.6. Urinalysis negative. Total bilirubin 0.6, alkaline phosphatase 265, AST 46, ALT 84. CAT scan as described. PHYSICAL EXAMINATION: General: She is awake and alert. She is seated in bed. She is not acutely short of breath on nasal cannula O2. Vital Signs: Temperature 98.9; T-max 102.2. Blood pressure 117/76; pulse 74, regular; respirations 18 per minute. HEENT: Sclerae are anicteric. Heart: Sounds S1, S2. Lungs: Scattered rhonchi bilaterally. No rales or wheezing. Abdomen: Obese, soft, nontender. Extremities: Positive for lower extremity edema. Negative Homans sign. IMPRESSION: 1. Bilateral pneumonia, rule out aspiration versus community-acquired atypical pneumonia. 2. Status post syncopal episode secondary to opiate overdose. 3. Leukopenia. 4. History of obstructive sleep apnea. Await culture results. Obtain sputum culture, urine legionella and pneumococcal antigens. Will obtain HIV testing; patient gives consent. Pulmonary evaluation. Thank you for the kind referral. ECTOR CREWS M.D. [id number]
[2018-11-12] MEDS: VANCOMYCIN 1 GRAM (PRE-DOCKED) 1,000 MG/250 ML BAG IVPB SCH (16:37)
--- NOTE | 2018-11-12 16:48 | PN ---
Physical Exam: SUBJECTIVE: Patient seen and examined at the bedside this morning she was lethargic and reported pleuritic chest pain and shortness of breath. The patient was upset because she had not received her home suboxone yet, as we needed to confirm it wither her pharmacy first. OBJECTIVE: Vital Signs Period Temp Pulse Resp BP Sys/Woody Pulse Ox Last 24 Hr 97.8 F-99.3 F 62-101 18-20 100-122/46-76 95-97 GENERAL: The patient is lethargic but fully oriented, in no acute distress, agitated. HEAD: Normal with no signs of trauma. EYES: PERRL, extraocular movements intact, sclera anicteric, conjunctiva clear. No ptosis. ENT: Ears normal, nares patent, oropharynx clear without exudates, dry mucous membranes. NECK: Trachea midline, full range of motion, supple. LUNGS: Breath sounds equal, bilateral wheezing in all lung rios, no crackles , no accessory muscle use. Pt on NC. HEART: Regular rate and rhythm, S1, S2 without murmur. ABDOMEN: Soft, nontender, nondistended, normoactive bowel sounds, no guarding, no rebound. EXTREMITIES: 2+ pulses, warm, well-perfused, no edema. NEUROLOGICAL: Cranial nerves II through XII grossly intact. Normal speech, gait not observed. PSYCH: Agitated, intermittently tearful. SKIN: Warm, dry, normal turgor, no rashes or lesions noted Laboratory Results - last 24 hr 11/11/18 11/11/18 11/11/18 15:44 15:44 16:30 WBC RBC Hgb Hct MCV MCH MCHC RDW Plt Count 169 D MPV Absolute Neuts (auto) Neutrophils % Lymphocytes % Monocytes % Eosinophils % Basophils % Nucleated RBC % Platelet Estimate Decreased Platelet Comment No clumping noted D-Dimer 869 H Sodium Potassium Chloride Carbon Dioxide Anion Gap BUN Creatinine Est GFR (CKD-EPI)AfAm Est GFR (CKD-EPI)NonAf Random Glucose Calcium Phosphorus Magnesium Total Bilirubin AST ALT Alkaline Phosphatase Troponin I < 0.02 B-Natriuretic Peptide 1426.3 H Total Protein Albumin TSH 2.37 Urine Color Urine Appearance Urine pH Ur Specific [place] Urine Protein Urine Glucose (UA) Urine Ketones Urine Blood Urine Nitrite Urine Bilirubin Urine Urobilinogen Ur Leukocyte Esterase Urine HCG, Qual Opiates Screen Methadone Screen Barbiturate Screen Phencyclidine Screen Ur Amphetamines Screen MDMA (Ecstasy) Screen Benzodiazepines Screen Cocaine Screen U Marijuana (THC) Screen 11/11/18 11/11/18 11/11/18 16:41 16:41 18:55 WBC RBC Hgb Hct MCV MCH MCHC RDW Plt Count MPV Absolute Neuts (auto) Neutrophils % Lymphocytes % Monocytes % Eosinophils % Basophils % Nucleated RBC % Platelet Estimate Platelet Comment D-Dimer Sodium Potassium Chloride Carbon Dioxide Anion Gap BUN Creatinine Est GFR (CKD-EPI)AfAm Est GFR (CKD-EPI)NonAf Random Glucose Calcium Phosphorus Magnesium Total Bilirubin AST ALT Alkaline Phosphatase Troponin I B-Natriuretic Peptide Total Protein Albumin TSH Urine Color Yellow Urine Appearance Clear Urine pH 8.5 H Ur Specific [place] 1.006 L Urine Protein Negative Urine Glucose (UA) Negative Urine Ketones Negative Urine Blood Negative Urine Nitrite Negative Urine Bilirubin Negative Urine Urobilinogen 0.2 Ur Leukocyte Esterase Negative Urine HCG, Qual Negative Opiates Screen Negative Methadone Screen Negative Barbiturate Screen Negative Phencyclidine Screen Negative Ur Amphetamines Screen Negative MDMA (Ecstasy) Screen Negative Benzodiazepines Screen Positive A* Cocaine Screen Negative U Marijuana (THC) Screen Negative 11/12/18 11/12/18 06:17 06:17 WBC 3.9 L RBC 3.04 L Hgb 9.5 L Hct 27.2 L D MCV 89.5 MCH 31.3 MCHC 35.0 RDW 13.5 Plt Count 151 MPV 7.7 Absolute Neuts (auto) 2.1 Neutrophils % 53.0 Lymphocytes % 34.8 D Monocytes % 11.4 H Eosinophils % 0.6 Basophils % 0.2 Nucleated RBC % 0 Platelet Estimate Platelet Comment D-Dimer Sodium 142 Potassium 3.5 Chloride 107 Carbon Dioxide 29 Anion Gap 6 L BUN 4.6 L Creatinine 0.6 Est GFR (CKD-EPI)AfAm 144.78 Est GFR (CKD-EPI)NonAf 124.92 Random Glucose 91 Calcium 8.3 L Phosphorus 4.5 Magnesium 2.2 Total Bilirubin 0.6 AST 46 H ALT 84 H Alkaline Phosphatase 265 H Troponin I < 0.02 B-Natriuretic Peptide Total Protein 5.4 L Albumin 2.9 L TSH Urine Color Urine Appearance Urine pH Ur Specific [place] Urine Protein Urine Glucose (UA) Urine Ketones Urine Blood Urine Nitrite Urine Bilirubin Urine Urobilinogen Ur Leukocyte Esterase Urine HCG, Qual Opiates Screen Methadone Screen Barbiturate Screen Phencyclidine Screen Ur Amphetamines Screen MDMA (Ecstasy) Screen Benzodiazepines Screen Cocaine Screen U Marijuana (THC) Screen Active Medications Generic Name Dose Route Start Last Admin Trade Name Freq PRN Reason Stop Dose Admin Acetaminophen 650 mg 11/12/18 00:30 11/12/18 15:34 Tylenol - PO 650 mg Q6H PRN Administration Fever Or Pain Acetaminophen 1,000 mg 11/12/18 16:44 Ofirmev Injection - IVPB Q6H PRN PAIN LEVEL 6-10 Albuterol/Ipratropium 1 amp 11/12/18 14:04 Duoneb - NEB Q4H PRN SHORTNESS OF BREATH Clonazepam 1 mg 11/12/18 10:00 11/12/18 10:36 Klonopin - PO 1 mg BID JESSENIA Administration Enoxaparin Sodium 90 mg 11/12/18 10:00 11/12/18 10:36 Lovenox - SQ 90 mg BID JESSENIA Administration Fluvoxamine Maleate 150 mg 11/12/18 10:00 11/12/18 10:37 Luvox - PO 150 mg BID JESSENIA Administration Gabapentin 300 mg 11/12/18 06:00 11/12/18 14:03 Neurontin - PO Not Given TID JESSENIA Sodium Chloride 1,000 mls @ 75 mls/hr 11/12/18 00:30 11/12/18 01:11 Normal Saline - IV 75 mls/hr ASDIR JESSENIA Administration Levofloxacin 500 mg in 100 mls @ 100 mls/hr 11/13/18 10:00 Levaquin 500 Mg Premixed Ivpb - IVPB DAILY JESSENIA Protocol Vancomycin HCl 1,000 mg in 250 mls @ 166.667 mls/hr 11/12/18 16:30 11/12/18 16:37 Vancomycin (Pre-Docked) IVPB Not Given Q12H JESSENIA Protocol Lamotrigine 200 mg 11/12/18 10:00 11/12/18 10:36 Lamictal - PO 200 mg BID JESSENIA Administration Levothyroxine Sodium 125 mcg 11/12/18 07:00 11/12/18 06:50 Synthroid - PO 125 mcg DAILY@0700 JESSENIA Administration Nicotine 14 mg 11/13/18 10:00 Nicoderm Patch - TD DAILY JESSENIA Trazodone HCl 25 mg 11/12/18 22:00 Desyrel - PO HS JESSENIA Imaging: - CXR: Rt middle and lower lobe infiltrate - Chest/abd CT: bilateral PNA in upper lobes and R middle lobe. Trace bilateral pleural effusion. Splenomegaly. -Abd US: s/p cholecystectomy, fatty infiltrate of liver ASSESSMENT/PLAN: Patient is a 28 year old woman with pmhx of borderline personality disorder, GREY , SMA syndrome, hashimotos, hemorrhoids, and prescription drug abuse including percocet, vicodin, and xanax. who presented to the ED on 11/11 with 3 days of SOB , dizziness, and lethargy and 1 day of vomiting. # Bilateral Pneumonia - aspiration vs. atypical vs. CAP- Patient is s/p drug overdose where she had LOC and loss of memory. - Presented with temp 102.2 - Allergic to Penicillin - ID consult placed, Dr. Olivas following appreciate recommendations -Cultures pending- sputum, legionella, and pneumococcal AG - F/U HIV test -Continue emperic vancomycin and levaquin #R/O PE - Elevated d-dimer 869 - Can not do CTA, allergic to contrast> however confirmed with patient today that she is able to tolerate contrast if given solumedrol and benadryl - Patient had a CT chest w/o contrast - Will re-evalute patient in the morning and assess whether she should obtain CTA - VQ Scan- holding off on VQ scan for now as patient has PNA - F/U Echo to check for impaired RV function - elevated BNP 1426.3 (may be elevated due to right ventricular strain in PE) - Lovenox 90 SQ BID #Transaminitis - AST 61, ALT 96, ALP 307 - US Abdomen showing fatty infiltrates of liver - F/U Hep serology #Chest pain - N/S @ 75 - EKG normal - Troponins negative #Opioid misuse - Dr. Lewis consulted, appreciate recommendations - resume MAT w/ Suboxone for the duration of stay - Clonazepam to bid prn add Hydroxyzone prn #pmhx of borderline personality disorder, GREY, SMA syndrome, hashimotos - Continuing home medications - trazodone 25mg PO daily - Luvox 300mg daily - Synthroid 125mcg PO daily - Lamictal 200 PO BID - Gabapentin 300mg PO TID #FEN - Follow Mg, Phos - Regular diet #DVT -Lovenox 90mg BID Visit type - Emergency Visit Emergency Visit: Yes ED Registration Date: 11/11/18 Care time: The patient presented to the Emergency Department on the above date and was hospitalized for further evaluation of their emergent condition. - New Patient This patient is new to me today: No - Critical Care Critical Care patient: No ATTENDING PHYSICIAN STATEMENT I saw and evaluated the patient. I reviewed the resident's note and discussed the case with the resident. I agree with the resident's findings and plan as documented. SUBJECTIVE: OBJECTIVE: ASSESSMENT AND PLAN:
--- NOTE | 2018-11-12 17:44 | PN ---
"[facility] Progress Note (SOAP) Subjective: Active Medications Acetaminophen (Tylenol -) 650 mg PO Q6H PRN PRN Reason: Fever Or Pain Last Admin: 11/12/18 15:34 Dose: 650 mg Acetaminophen (Ofirmev Injection -) 1,000 mg IVPB Q6H PRN PRN Reason: PAIN LEVEL 6-10 Albuterol/Ipratropium (Duoneb -) 1 amp NEB Q4H PRN PRN Reason: SHORTNESS OF BREATH Clonazepam (Klonopin -) 1 mg PO BID [facility] Last Admin: 11/12/18 10:36 Dose: 1 mg Enoxaparin Sodium (Lovenox -) 90 mg SQ BID [facility] Last Admin: 11/12/18 10:36 Dose: 90 mg Fluvoxamine Maleate (Luvox -) 150 mg PO BID [facility] Last Admin: 11/12/18 10:37 Dose: 150 mg Gabapentin (Neurontin -) 300 mg PO TID [facility] Last Admin: 11/12/18 14:03 Dose: Not Given Sodium Chloride (Normal Saline -) 1,000 mls @ 75 mls/hr IV ASDIR [facility] Last Admin: 11/12/18 01:11 Dose: 75 mls/hr Levofloxacin (Levaquin 500 Mg Premixed Ivpb -) 500 mg in 100 mls @ 100 mls/hr IVPB DAILY [facility]; Protocol Vancomycin HCl (Vancomycin (Pre-Docked)) 1,000 mg in 250 mls @ 166.667 mls/hr IVPB Q12H [facility]; Protocol Last Admin: 11/12/18 16:37 Dose: Not Given Lamotrigine (Lamictal -) 200 mg PO BID [facility] Last Admin: 11/12/18 10:36 Dose: 200 mg Levothyroxine Sodium (Synthroid -) 125 mcg PO DAILY@0700 [facility] Last Admin: 11/12/18 06:50 Dose: 125 mcg Nicotine (Nicoderm Patch -) 14 mg TD DAILY [facility] Trazodone HCl (Desyrel -) 25 mg PO [facility] PHYSICIAN ASSISTANT : Search Terms: julissa brunson, 1990 Search Date: 11/12/2018 05:35:14 PM This report was requested by: Araceli Lewis | Reference #: [id number] Others' Prescriptions Patient Name: Julissa Brunson Date: 1990 Address: [address] [place] [id number] Sex: Female Rx Written Rx Dispensed Drug Quantity Days Supply Prescriber Name 11/09/2018 11/09/2018 clonazepam 1 mg tablet 14 7 Cristi Garces) 10/19/2018 10/19/2018 buprenorphine-naloxone 12-3 mg sl film 30 15 Jeremy Gordon X 09/03/2018 09/23/2018 buprenorphine-naloxone 8-2 mg sl film 90 30 MiliCristi ferreira) 09/23/2018 09/23/2018 dronabinol 2.5 mg capsule 21 7 MiliCristi ferreira) 08/11/2018 08/24/2018 buprenorphine-naloxone 8-2 mg sl film 90 30 MiliCristi ferreira) 07/27/2018 07/27/2018 dronabinol 2.5 mg capsule 3 3 MiliCristi ferreira) 07/18/2018 07/21/2018 buprenorphine-naloxone 8-2 mg sl film 90 30 MiliCristi ferreira) 07/20/2018 07/21/2018 dronabinol 2.5 mg capsule 7 7 MiliCristi shaw) 07/13/2018 07/13/2018 dronabinol 2.5 mg capsule 14 7 MiliCristi ferreira) 07/07/2018 07/07/2018 dronabinol 2.5 mg capsule 21 7 MiliCristi ferreira) 06/30/2018 06/30/2018 dronabinol 5 mg capsule 14 7 MiliCristi shaw) 06/23/2018 06/24/2018 dronabinol 5 mg capsule 21 7 MiliCristi shaw) 06/20/2018 06/21/2018 buprenorphine-naloxone 8-2 mg sl film 90 30 MiliCristi ferreira) 06/17/2018 06/17/2018 dronabinol 10 mg capsule 14 7 MiliCristi shaw) 06/09/2018 06/10/2018 dronabinol 10 mg capsule 21 7 MiliCristi shaw) 06/03/2018 06/03/2018 dronabinol 10 mg capsule 21 7 MiliCristi shaw) 05/27/2018 05/27/2018 dronabinol 10 mg capsule 28 7 Mili, Cristi H [facility]) 05/25/2018 05/25/2018 clonazepam 0.5 mg tablet 14 7 Mili, Cristi WALL) 05/23/2018 05/25/2018 suboxone 8 mg-2 mg sl film 87 29 Mili, Cristi H [place]) 05/08/2018 05/08/2018 clonazepam 0.5 mg tablet 7 3 Mili, Cristi WALL) 04/17/2018 04/20/2018 suboxone 8 mg-2 mg sl film 90 30 Miil, Cristi H [place]) 03/16/2018 03/19/2018 suboxone 8 mg-2 mg sl film 90 30 Mili, Cristi WALL) 02/02/2018 03/02/2018 suboxone 8 mg-2 mg sl film 30 30 Mili, Cristi WALL) 01/26/2018 01/31/2018 suboxone 8 mg-2 mg sl film 60 30 Mili, Cristi WALL) 12/03/2017 12/17/2017 eszopiclone 3 mg tablet 30 30 Raff, Pradeep 12/03/2017 12/03/2017 lorazepam 0.5 mg tablet 60 30 Raff, Pradeep 11/17/2017 11/17/2017 eszopiclone 3 mg tablet 30 30 Raff, Pradeep Patient Name: Julissa Brunson Date: 1990 Address: [address] [place] [address] Sex: Female Rx Written Rx Dispensed Drug Quantity Days Supply Prescriber Name 04/14/2018 05/25/2018 vireo red (19:1) 2.375mg thc and 0.125mg cbd/2-sec puff vape 1 7 Joe Mcdonough MD 04/14/2018 05/17/2018 vireo red (19:1) 10mg thc and 0.53mg cbd/0.42ml oral soln 1 7 Joe Mcdonough MD 04/14/2018 05/17/2018 vireo red (19:1) 2.1mg thc and 0.1mg cbd/2-sec puff vape 1 7 Joe Mcdonough MD 04/14/2018 05/09/2018 vireo red (19:1) 2.375mg thc and 0.125mg cbd/2-sec puff vape 1 7 Joe Mcdonough MD 04/14/2018 04/26/2018 vireo red (19:1) 2.1mg thc and 0.1mg cbd/2-sec puff vape 1 7 Joe Mcdonough MD 04/14/2018 04/26/2018 forte powder 5mg thc and <0.1mg cbd/18 teaspoonful scoop 1 7 Joe Mcdonough MD 04/14/2018 04/21/2018 vireo red (19:1) 2.375mg thc and 0.125mg cbd/2-sec puff vape 1 7 Joe Mcdonough MD 04/14/2018 04/16/2018 vireo red (19:1) 2.375mg thc and 0.125mg cbd/2-sec puff vape 1 7 Joe Mcdonough MD 02/11/2018 04/13/2018 forte high thc 9.7mg thc and <0.1mg cbd/capsule 1 7 Joe Mcdonough MD 03/13/2018 04/09/2018 vireo red (19:1) 2.375mg thc and 0.125mg cbd/2-sec puff vape 1 7 Selin Campbell MD 03/13/2018 04/04/2018 vireo red (19:1) 2.375mg thc and 0.125mg cbd/2-sec puff vape 1 7 Selin Campbell MD 03/13/2018 03/28/2018 vireo red (19:1) 2.375mg thc and 0.125mg cbd/2-sec puff vape 1 7 Selin Campbell MD 03/13/2018 03/28/2018 forte high thc 9.7mg thc and <0.1mg cbd/capsule 1 7 Selin Campbell MD 03/13/2018 03/26/2018 forte high thc 9.7mg thc and <0.1mg cbd/capsule 1 7 Selin Campbell MD 03/13/2018 03/21/2018 vireo red (19:1) 2.375mg thc and 0.125mg cbd/2-sec puff vape 1 7 Selin Campbell MD 03/13/2018 03/21/2018 vireo red (19:1) 10mg thc and 0.53mg cbd/0.42ml oral soln 1 7 Selin Campbell MD 03/11/2018 03/11/2018 vireo red (19:1) 2.375mg thc and 0.125mg cbd/2-sec puff vape 1 7 Selin Campbell MD 03/11/2018 03/11/2018 vireo yellow (6:1) 10mg thc and 1.67mg cbd/0.417ml oral soln 1 7 Selin Campbell MD 02/11/2018 03/04/2018 vireo red (19:1) 2.375mg thc and 0.125mg cbd/2-sec puff vape 1 20 Joe Mcdonough MD 02/11/2018 02/24/2018 vireo red (19:1) 2.375mg thc and 0.125mg cbd/2-sec puff vape 1 6 Selin Campbell MD 02/11/2018 02/22/2018 vireo red (19:1) 2.375mg thc and 0.125mg cbd/2-sec puff vape 1 7 Joe Mcdonough MD 02/11/2018 02/19/2018 vireo red (19:1) 10mg thc and 0.53mg cbd/0.42ml oral soln 1 10 Selin Campbell MD 02/11/2018 02/15/2018 vireo blue (1:6) 0.36mg thc and 2.14mg cbd/2-sec puff vape 1 6 Selin Campbell MD 02/11/2018 02/11/2018 vireo red (19:1) 2.375mg thc and 0.125mg cbd/2-sec puff vape 1 7 Joe Mcdonough MD 09/29/2017 01/30/2018 vireo blue (1:6) 0.36mg thc and 2.14mg cbd/2-sec puff vape 1 4 Joe Mcdonough MD 09/29/2017 01/26/2018 vireo red (19:1) 2.375mg thc and 0.125mg cbd/2-sec puff vape 1 6 Selin Campbell MD 09/29/2017 01/26/2018 vireo blue (1:6) 0.36mg thc and 2.14mg cbd/2-sec puff vape 1 6 Selin Campbell MD 09/29/2017 01/19/2018 vireo blue (1:6) 0.36mg thc and 2.14mg cbd/2-sec puff vape 1 15 Joe Mcdonough MD 09/29/2017 01/19/2018 vireo red (19:1) 2.375mg thc and 0.125mg cbd/2-sec puff vape 1 15 Joe Mcdonough MD 09/29/2017 01/09/2018 vireo green (1:1) 1.2mg thc and 1.2mg cbd/2 sec puff vapor 1 10 Joe Mcdonough MD 09/29/2017 01/03/2018 vireo red (19:1) 2.375mg thc and 0.125mg cbd/2-sec puff vape 1 4 Joe Mcdonough MD 09/29/2017 01/03/2018 vireo yellow (6:1) 10mg thc and 1.67mg cbd/0.417ml oral soln 1 4 Joe Mcdonough MD 09/29/2017 12/31/2017 vireo red (19:1) 2.375mg thc and 0.125mg cbd/2-sec puff vape 1 10 Joe Mcdonough MD 09/29/2017 12/26/2017 vireo green starter (1:1) 1.2mg thc/1.2mg cbd/2 sec puff 1 3 Joe Mcdonough MD 09/29/2017 12/26/2017 vireo yellow starter (6:1) 2.14mg thc/0.36mg cbd/2- sec puff 1 3 Joe Mcdonough MD 09/29/2017 12/26/2017 vireo red starter (19:1) 2.375mg thc/0.125mg cbd/2- sec puff 1 3 Joe Mcdonough MD 09/29/2017 12/17/2017 vireo yellow (6:1) 2.14 mg thc/0.36 mg cbd/2-sec puff vapor 1 10 Joe Mcdonough MD 09/29/2017 12/02/2017 vireo red (19:1) 2.375mg thc and 0.125mg cbd/2-sec puff vape 1 10 Joe Mcdonough MD 28 y.o. female referred for consultation , reports use of illicit opiates x 6 years , after rx x 1 year for Vicodin for abdominal pain , also use of illicit benzodiazepine for the same duration of time, claims sobriety x 3 years w/ MAT Suboxone , relapse 10 days ago cannot relate to any specific trigger , states started taking xanax 4 mg , then a couple of days later Vicodin as well, reports OD on percocet and Xanax last Friday , was taken to hospital, d/c to home , and visit to prescriber 11/09/18 w/ rx for Clonazepam x 1 week and restart of MAT w/ Suboxone . Pt denies heroin use . Currently hospitalized for Pneumonia . Report w/s seizure from xanax years ago . PMHx : OUD , BPD , Cholecystectomy, Diogenes's thyroiditis, Breast implants, Seizure disorder, Superior mesenteric artery (SMA) syndrome, Anxiety and Sleep walking Objective: wnwd , resting in bed , anxious about meds . Neuro :AAOx 3 Abnormal Lab Results 11/11/18 11/12/18 11/12/18 18:55 06:17 06:17 WBC 3.9 L RBC 3.04 L Hgb 9.5 L Hct 27.2 L D Monocytes % 11.4 H Anion Gap 6 L BUN 4.6 L Calcium 8.3 L AST 46 H ALT 84 H Alkaline Phosphatase 265 H Total Protein 5.4 L Albumin 2.9 L Urine pH 8.5 H Ur Specific Green 1.006 L utox + BZO , neg opiates Assessment: OUD Sedative dependence Plan: resume MAT w/ Suboxone for the duration of stay , pt has prescriber as noted above and will return to primary prescriber upon d/c , change Clonazepam to bid prn pt not interested in inpt rehab . f/up prn ."
[2018-11-12] MEDS: clonazePAM 0.5 MG TABLET PO PRN (21:27)
[2018-11-12] MEDS ORDERED: traZODone HCL 50 MG TABLET (FP) PO SCH ×2 (22:00)
[2018-11-12] MEDS: ACETAMINOPHEN 1000 MG/100 ML VIAL (NON FORMULARY) IVPB PRN (22:00)
[2018-11-12] MEDS: traZODone HCL 50 MG TABLET (FP) PO SCH (23:03)
[2018-11-12 23:48] LABS: URINE APPEARANCE Error; URINE BILIRUBIN NEGATIVE (NEGATIVE); URINE COLOR YELLOW; URINE GLUCOSE (UA) NEGATIVE (NEGATIVE); URINE KETONE NEGATIVE (NEGATIVE); URINE LEUK ESTERASE NEGATIVE (NEGATIVE); URINE NITRITE NEGATIVE (NEGATIVE); URINE PROTEIN NEGATIVE (NEGATIVE)
[2018-11-13] MEDS: SODIUM CHLORIDE 1,000 ML IV SCH ×2 (01:45→06:22)
[2018-11-13] MEDS: VANCOMYCIN 1 GRAM (PRE-DOCKED) 1,000 MG/250 ML BAG IVPB SCH ×2 (04:43→17:37)
[2018-11-13] MEDS: LEVOTHYROXINE NA 125 MCG TABLET (FP) PO SCH (06:55)
[2018-11-13] MEDS: GABAPENTIN 300 MG CAPSULE (FP) PO SCH ×4 (06:55→21:37)
[2018-11-13 07:07] LABS: HEMATOCRIT 29.1 % (32.4-45.2); HEMOGLOBIN 9.8 GM/dL (10.7-15.3); MCH 30.8 pg (25.7-33.7); MCHC 33.8 g/dl (32.0-36.0); MEAN PLT VOLUME 7.6 fl (7.5-11.1); PLATELET COUNT 144 K/MM3 (134-434); RDW 13.9 % (11.6-15.6); WHITE BLOOD COUNT 3.2 K/mm3 (4.0-10.0)
[2018-11-13 07:26] LABS: ALBUMIN 2.5 g/dl (3.4-5.0); BILIRUBIN,TOTAL 0.2 mg/dL (0.2-1); BLOOD UREA NITROGEN 8.6 mg/dL (7-18); CALCIUM 8.2 mg/dL (8.5-10.1); CREATININE 0.7 mg/dL (0.55-1.3); MAGNESIUM 2.3 mg/dL (1.8-2.4); POTASSIUM 3.8 mmol/L (3.5-5.1)
--- NOTE | 2018-11-13 09:00 | PN ---
Physical Exam: SUBJECTIVE: Patient seen and examined at the bedside, there were no acute events overnight. Patient states she is still having pleuritic chest pain and still feels as though she is wheezing a lot. Nebulizers help. OBJECTIVE: Vital Signs Period Temp Pulse Resp BP Sys/Woody Pulse Ox Last 24 Hr 97.5 F-98.9 F 60-74 16-22 98-117/52-76 95-95 GENERAL: The patient is AOx4 in no acute distress, appears improved from yesterday. HEAD: Normal with no signs of trauma. EYES: PERRL, extraocular movements intact, sclera anicteric, conjunctiva clear. No ptosis. ENT: Ears normal, nares patent, oropharynx clear without exudates, dry mucous membranes. NECK: Trachea midline, full range of motion, supple. LUNGS: Breath sounds equal, bilateral wheezing in all lung rios however improved from yesterday, no crackles, no accessory muscle use. Pt on RA breathing comfortably. HEART: Regular rate and rhythm, S1, S2 without murmur. ABDOMEN: Soft, nontender, nondistended, normoactive bowel sounds, no guarding, no rebound. EXTREMITIES: 2+ pulses, warm, well-perfused, no edema. NEUROLOGICAL: Cranial nerves II through XII grossly intact. Normal speech, normal gait. PSYCH: appropriate mood and affect. SKIN: Warm, dry, normal turgor, no rashes or lesions noted Laboratory Results - last 24 hr 11/12/18 11/12/18 11/12/18 06:17 06:17 20:00 WBC RBC Hgb Hct MCV MCH MCHC RDW Plt Count MPV Sodium 142 Potassium 3.5 Chloride 107 Carbon Dioxide 29 Anion Gap 6 L BUN 4.6 L Creatinine 0.6 Est GFR (CKD-EPI)AfAm 144.78 Est GFR (CKD-EPI)NonAf 124.92 Random Glucose 91 Calcium 8.3 L Phosphorus 4.5 Magnesium 2.2 Total Bilirubin 0.6 AST 46 H ALT 84 H Alkaline Phosphatase 265 H Troponin I < 0.02 Total Protein 5.4 L Albumin 2.9 L Urine Color Yellow Urine Appearance Error Urine pH 8.0 Ur Specific Purdum 1.013 Urine Protein Negative Urine Glucose (UA) Negative Urine Ketones Negative Urine Blood Negative Urine Nitrite Negative Urine Bilirubin Negative Urine Urobilinogen 1.0 Ur Leukocyte Esterase Negative Hep A IgM Ab Confirm Negative Hep Bs Antigen Negative Hep B Core IgM Ab Negative Hepatitis C Ab (EIA) <0.1 11/13/18 11/13/18 06:10 06:10 WBC 3.2 L RBC 3.20 L Hgb 9.8 L Hct 29.1 L MCV 91.0 MCH 30.8 MCHC 33.8 RDW 13.9 Plt Count 144 MPV 7.6 Sodium 143 Potassium 3.8 Chloride 109 H Carbon Dioxide 30 Anion Gap 4 L BUN 8.6 Creatinine 0.7 Est GFR (CKD-EPI)AfAm 137.62 Est GFR (CKD-EPI)NonAf 118.74 Random Glucose 109 H Calcium 8.2 L Phosphorus Magnesium 2.3 Total Bilirubin 0.2 AST 23 ALT 62 H Alkaline Phosphatase 224 H Troponin I Total Protein 5.0 L Albumin 2.5 L Urine Color Urine Appearance Urine pH Ur Specific Purdum Urine Protein Urine Glucose (UA) Urine Ketones Urine Blood Urine Nitrite Urine Bilirubin Urine Urobilinogen Ur Leukocyte Esterase Hep A IgM Ab Confirm Hep Bs Antigen Hep B Core IgM Ab Hepatitis C Ab (EIA) Active Medications Generic Name Dose Route Start Last Admin Trade Name Freq PRN Reason Stop Dose Admin Acetaminophen 650 mg 11/12/18 00:30 11/12/18 15:34 Tylenol - PO 650 mg Q6H PRN Administration Fever Or Pain Acetaminophen 1,000 mg 11/12/18 16:44 11/12/18 22:00 Ofirmev Injection - IVPB 1,000 mg Q6H PRN Administration PAIN LEVEL 6-10 Albuterol/Ipratropium 1 amp 11/12/18 14:04 11/12/18 20:11 Duoneb - NEB 1 amp Q4H PRN Administration SHORTNESS OF BREATH Buprenorphine/Naloxone 3 each 11/13/18 10:00 Suboxone 8 Mg/2mg Sl Film - SL DAILY JESSENIA Clonazepam 1 mg 11/12/18 17:54 11/12/18 21:27 Klonopin - PO 1 mg BID PRN Administration AGITATION Enoxaparin Sodium 90 mg 11/12/18 10:00 11/12/18 21:28 Lovenox - SQ 90 mg BID JESSENIA Administration Fluvoxamine Maleate 150 mg 11/12/18 10:00 11/12/18 23:10 Luvox - PO 150 mg BID JESSENIA Administration Gabapentin 300 mg 11/12/18 06:00 11/13/18 06:55 Neurontin - PO 300 mg TID JESSENIA Administration Sodium Chloride 1,000 mls @ 75 mls/hr 11/12/18 00:30 11/13/18 06:22 Normal Saline - IV 75 mls/hr ASDIR JESSENIA Administration Levofloxacin 500 mg in 100 mls @ 100 mls/hr 11/13/18 10:00 Levaquin 500 Mg Premixed Ivpb - IVPB DAILY JESSENIA Protocol Vancomycin HCl 1,000 mg in 250 mls @ 166.667 mls/hr 11/12/18 16:30 11/13/18 04:43 Vancomycin (Pre-Docked) IVPB 166.667 mls/hr Q12H JESSENIA Administration Protocol Lamotrigine 200 mg 11/12/18 10:00 11/12/18 21:28 Lamictal - PO 200 mg BID JESSENIA Administration Levothyroxine Sodium 125 mcg 11/12/18 07:00 11/13/18 06:55 Synthroid - PO 125 mcg DAILY@0700 JESSENIA Administration Nicotine 14 mg 11/13/18 10:00 Nicoderm Patch - TD DAILY JESSENIA Trazodone HCl 25 mg 11/12/18 22:00 11/12/18 23:03 Desyrel - PO 25 mg HS JESSENIA Administration Imaging: - CXR: Rt middle and lower lobe infiltrate - Chest/abd CT: bilateral PNA in upper lobes and R middle lobe. Trace bilateral pleural effusion. Splenomegaly. -Abd US: s/p cholecystectomy, fatty infiltrate of liver ASSESSMENT/PLAN: Patient is a 28 year old woman with pmhx of borderline personality disorder, GREY , SMA syndrome, hashimotos, hemorrhoids, and prescription drug abuse including percocet, vicodin, and xanax. who presented to the ED on 11/11 with 3 days of SOB , dizziness, and lethargy and 1 day of vomiting. # Bilateral Pneumonia - Temp 102.2 on admission - Allergic to Penicillin - ID consult placed, Dr. Olivas following appreciate recommendations - Cultures pending- sputum -legionella negative -HIV negative Strep pneumo negative in urine Ag -Continue emperic vancomycin and IV levaquin 500mg -Pulm consulted Dr. Zuñiga following, appreciate recommendations - short trial of steroids/ duoneb q4 - encourage use of incentive spirometer #R/O PE - Patient is stable and improving on antibiotics regimin, will continue to monitor - Confirmed with patient that she is able to tolerate contrast if given solumedrol and benadryl -Will re-evaluate the necessity of obtaining a CA once the patient is stable - Continue Lovenox 90mg sq BID - Elevated d-dimer 869 - Can not do CTA, allergic to contrast> however - Patient had a CT chest w/o contrast - Will re-evalute patient in the morning and assess whether she should obtain CTA #Transaminitis - AST 61, ALT 96, ALP 307 - US Abdomen showing fatty infiltrates of liver - F/U Hep serology #Transaminitis: US Abdomen showing fatty infiltrates of liver , F/U Hep serology , No Fat/low diet recommended and weight loss #Opioid misuse - Dr. Lewis consulted, appreciate recommendations - resume MAT w/ Suboxone for the duration of stay - Clonazepam to bid prn add Hydroxyzone prn #Pmhx of borderline personality disorder, GREY, SMA syndrome, hashimotos - Continuing home medications - trazodone 25mg PO daily - Luvox 300mg daily - Synthroid 125mcg PO daily - Lamictal 200 PO BID - Gabapentin 300mg PO TID #Chest pain- resolved - N/S @ 75 - EKG normal - Echo normal - Troponins negative #FEN - Follow Mg, Phos - Regular diet #DVT -Lovenox 90mg BID Dispo: Continue to monitor in med-surg Visit type - Emergency Visit Emergency Visit: Yes ED Registration Date: 11/11/18 Care time: The patient presented to the Emergency Department on the above date and was hospitalized for further evaluation of their emergent condition. - New Patient This patient is new to me today: No - Critical Care Critical Care patient: No - Discharge Referral Referred to [facility] Med P.C.: No ATTENDING PHYSICIAN STATEMENT I saw and evaluated the patient. I reviewed the resident's note and discussed the case with the resident. I agree with the resident's findings and plan as documented. SUBJECTIVE: OBJECTIVE: ASSESSMENT AND PLAN:
[2018-11-13] MEDS ORDERED: PT OWN MED DRAWER 7, Y5N ONE (11:10)
[2018-11-13] MEDS: lamoTRIgine 100 MG TABLET (FP) PO SCH (11:11)
[2018-11-13] MEDS: NICOTINE 14 MG/24 HOURS TOPICAL PATCH TD SCH (11:12)
[2018-11-13] MEDS: ENOXAPARIN NA (PORCINE) 100 MG/1 ML DISP.SYRIN SQ SCH ×2 (11:12→21:37)
[2018-11-13] MEDS: BUPRENORPHINE/NALOXONE 8 MG/2 MG FILM PACKET SL SCH (11:13)
--- NOTE | 2018-11-13 11:39 | PN ---
Teaching Attending Note Name of Resident: Shannan Murphy ATTENDING PHYSICIAN STATEMENT I saw and evaluated the patient. I reviewed the resident's note and discussed the case with the resident. I agree with the resident's findings and plan as documented. SUBJECTIVE: Patient is feeling better today continues to wheeze but better today . OBJECTIVE: Vital Signs Temperature 97.5 F L 11/13/18 06:20 Pulse Rate 60 11/13/18 06:20 Respiratory Rate 16 11/13/18 06:20 Blood Pressure 98/52 L 11/13/18 06:20 O2 Sat by Pulse Oximetry (%) 95 11/12/18 21:00 GENERAL: The patient is awake, alert, and fully oriented, in no acute distress. HEAD: Normal with no signs of trauma. EYES: PERRL, extraocular movements intact, sclera anicteric, conjunctiva clear. ENT: Ears normal, oropharynx clear without exudates, moist mucous membranes. NECK: Trachea midline, full range of motion, supple. LUNGS:decreased air Entery bl , positive for wheeze bl , no crackles, no accessory muscle use. HEART: Regular rate and rhythm, S1, S2 without murmur, rub or gallop. ABDOMEN: Soft, NT,ND, normoactive bowel sounds, no guarding, no rebound, no hepatosplenomegaly, no masses. EXTREMITIES: 2+ pulses, warm, well-perfused, no edema. NEUROLOGICAL: Cranial nerves II through XII grossly intact. Normal speech, gait not observed. PSYCH: Normal mood, normal affect. SKIN: Warm, dry, normal turgor, no rashes or lesions noted CBCD WBC 3.2 K/mm3 (4.0-10.0) L 11/13/18 06:10 RBC 3.20 M/mm3 (3.60-5.2) L 11/13/18 06:10 Hgb 9.8 GM/dL (10.7-15.3) L 11/13/18 06:10 Hct 29.1 % (32.4-45.2) L 11/13/18 06:10 MCV 91.0 fl (80-96) 11/13/18 06:10 MCHC 33.8 g/dl (32.0-36.0) 11/13/18 06:10 RDW 13.9 % (11.6-15.6) 11/13/18 06:10 Plt Count 144 K/MM3 (134-434) 11/13/18 06:10 MPV 7.6 fl (7.5-11.1) 11/13/18 06:10 CMP Sodium 143 mmol/L (136-145) 11/13/18 06:10 Potassium 3.8 mmol/L (3.5-5.1) 11/13/18 06:10 Chloride 109 mmol/L (98-107) H 11/13/18 06:10 Carbon Dioxide 30 mmol/L (21-32) 11/13/18 06:10 Anion Gap 4 MMOL/L (8-16) L 11/13/18 06:10 BUN 8.6 mg/dL (7-18) 11/13/18 06:10 Creatinine 0.7 mg/dL (0.55-1.3) 11/13/18 06:10 Random Glucose 109 mg/dL (74-106) H 11/13/18 06:10 Calcium 8.2 mg/dL (8.5-10.1) L 11/13/18 06:10 Total Bilirubin 0.2 mg/dL (0.2-1) 11/13/18 06:10 AST 23 U/L (15-37) 11/13/18 06:10 ALT 62 U/L (13-61) H 11/13/18 06:10 Alkaline Phosphatase 224 U/L (45-117) H 11/13/18 06:10 Total Protein 5.0 g/dl (6.4-8.2) L 11/13/18 06:10 Albumin 2.5 g/dl (3.4-5.0) L 11/13/18 06:10 CARDIAC ENZYMES Troponin I < 0.02 ng/ml (0.00-0.05) 11/12/18 06:17 Current Medications Generic Name Dose Route Start Last Admin Trade Name Freq PRN Reason Stop Dose Admin Acetaminophen 650 mg 11/12/18 00:30 11/12/18 15:34 Tylenol - PO 650 mg Q6H PRN Administration Fever Or Pain Acetaminophen 1,000 mg 11/12/18 16:44 11/12/18 22:00 Ofirmev Injection - IVPB 1,000 mg Q6H PRN Administration PAIN LEVEL 6-10 Albuterol/Ipratropium 1 amp 11/12/18 14:04 11/12/18 20:11 Duoneb - NEB 1 amp Q4H PRN Administration SHORTNESS OF BREATH Buprenorphine/Naloxone 3 each 11/13/18 10:00 11/13/18 11:13 Suboxone 8 Mg/2mg Sl Film - SL 3 each DAILY JESSENIA Administration Clonazepam 1 mg 11/12/18 17:54 11/12/18 21:27 Klonopin - PO 1 mg BID PRN Administration AGITATION Enoxaparin Sodium 90 mg 11/12/18 10:00 11/13/18 11:12 Lovenox - SQ 90 mg BID JESSENIA Administration Fluvoxamine Maleate 150 mg 11/12/18 10:00 11/13/18 11:12 Luvox - PO 150 mg BID JESSENIA Administration Gabapentin 300 mg 11/12/18 06:00 11/13/18 06:55 Neurontin - PO 300 mg TID JESSENIA Administration Sodium Chloride 1,000 mls @ 75 mls/hr 11/12/18 00:30 11/13/18 06:22 Normal Saline - IV 75 mls/hr ASDIR JESSENIA Administration Levofloxacin 500 mg in 100 mls @ 100 mls/hr 11/13/18 10:00 11/13/18 11:12 Levaquin 500 Mg Premixed Ivpb - IVPB 100 mls/hr DAILY JESSENIA Administration Protocol Vancomycin HCl 1,000 mg in 250 mls @ 166.667 mls/hr 11/12/18 16:30 11/13/18 04:43 Vancomycin (Pre-Docked) IVPB 166.667 mls/hr Q12H JESSENIA Administration Protocol Lamotrigine 200 mg 11/12/18 10:00 11/13/18 11:11 Lamictal - PO 200 mg BID JESSENIA Administration Levothyroxine Sodium 125 mcg 11/12/18 07:00 11/13/18 06:55 Synthroid - PO 125 mcg DAILY@0700 JESSENIA Administration Nicotine 14 mg 11/13/18 10:00 11/13/18 11:12 Nicoderm Patch - TD 14 mg DAILY JESSENIA Administration Trazodone HCl 25 mg 11/12/18 22:00 11/12/18 23:03 Desyrel - PO 25 mg HS JESSENIA Administration CTA in am for possible PE CXR: Rt middle and lower lobe infiltrate Chest/abd CT: bilateral PNA in upper lobes and R middle lobe. Trace bilateral pleural effusion. Splenomegaly. Abd US: s/p cholecystectomy, fatty infiltrate of liver ASSESSMENT AND PLAN: Patient is a 28 year old woman with pmhx of borderline personality disorder, GREY , SMA syndrome, hashimotos, hemorrhoids, and prescription drug abuse including percocet, vicodin, and xanax. who presented to the ED on 11/11 with 3 days of SOB , dizziness, and lethargy and 1 day of vomiting and was found to have BL Pneumonia. # Bilateral Pneumonia - ON IV Levaquin 500mg continue and Vancomycin ,due to allergic to PCN . Presented with temp 102.2, legionella neg. HIV neg. Strept.pheumo neg in the urinary antigen, Seen BY Pulm. recommend short term use of steroids. her o2 sat on rm 02 is 94%, incentive spirometer suggested for the patient to use. #Possible PE: looks stable , will keepto monitor , might not need CTA , will reavaluate once stable, on Lovenox 90mg sq biD continue #Transaminitis: US Abdomen showing fatty infiltrates of liver , F/U Hep serology , No Fat/low diet recommended and weight loss #Opioid dependency: Dr. Lewis consulted, appreciate her recommendations #Hx of borderline personality disorder continue home meds, DVT Px: Lovenox 90mg BID
[2018-11-13] MEDS: clonazePAM 0.5 MG TABLET PO PRN ×2 (11:59→21:50)
--- NOTE | 2018-11-13 13:06 | PN ---
Progress Note, Physician History of Present Illness: AWAKE, ALERT IN BED C/O WHEEZE NO C/O CHEST PAIN/ DYSPNEA/ COUGH NO FEVER/ CHIILS TOLERATED ANTIBIOTICS LEUKOPENIC HIV(-) LEGIONELLA AG (-) - Current Medication List Current Medications: Active Medications Acetaminophen (Tylenol -) 650 mg PO Q6H PRN PRN Reason: Fever Or Pain Last Admin: 11/12/18 15:34 Dose: 650 mg Acetaminophen (Ofirmev Injection -) 1,000 mg IVPB Q6H PRN PRN Reason: PAIN LEVEL 6-10 Last Admin: 11/12/18 22:00 Dose: 1,000 mg Albuterol/Ipratropium (Duoneb -) 1 amp NEB Q4H PRN PRN Reason: SHORTNESS OF BREATH Last Admin: 11/12/18 20:11 Dose: 1 amp Buprenorphine/Naloxone (Suboxone 8 Mg/2mg Sl Film -) 3 each SL DAILY [facility] Last Admin: 11/13/18 11:13 Dose: 3 each Clonazepam (Klonopin -) 1 mg PO BID PRN PRN Reason: AGITATION Last Admin: 11/13/18 11:59 Dose: 1 mg Enoxaparin Sodium (Lovenox -) 90 mg SQ BID [facility] Last Admin: 11/13/18 11:12 Dose: 90 mg Fluvoxamine Maleate (Luvox -) 300 mg PO DAILY [facility] Gabapentin (Neurontin -) 300 mg PO TID [facility] Last Admin: 11/13/18 06:55 Dose: 300 mg Sodium Chloride (Normal Saline -) 1,000 mls @ 75 mls/hr IV ASDIR [facility] Last Admin: 11/13/18 06:22 Dose: 75 mls/hr Levofloxacin (Levaquin 500 Mg Premixed Ivpb -) 500 mg in 100 mls @ 100 mls/hr IVPB DAILY [facility]; Protocol Last Admin: 11/13/18 11:12 Dose: 100 mls/hr Vancomycin HCl (Vancomycin (Pre-Docked)) 1,000 mg in 250 mls @ 166.667 mls/hr IVPB Q12H [facility]; Protocol Last Admin: 11/13/18 04:43 Dose: 166.667 mls/hr Lamotrigine (Lamictal -) 400 mg PO DAILY [facility] Levothyroxine Sodium (Synthroid -) 125 mcg PO DAILY@0700 [facility] Last Admin: 11/13/18 06:55 Dose: 125 mcg Nicotine (Nicoderm Patch -) 14 mg TD DAILY [facility] Last Admin: 11/13/18 11:12 Dose: 14 mg Trazodone HCl (Desyrel -) 25 mg PO HS [facility] Last Admin: 11/12/18 23:03 Dose: 25 mg - Objective Vital Signs: Vital Signs Temperature 98 F 11/13/18 12:25 Pulse Rate 69 11/13/18 12:25 Respiratory Rate 18 11/13/18 12:25 Blood Pressure 108/73 11/13/18 12:25 O2 Sat by Pulse Oximetry (%) 95 11/12/18 21:00 Constitutional: Yes: No Distress Cardiovascular: Yes: Regular Rate and Rhythm, S1, S2 Respiratory: Yes: Rhonchi, Wheezes Gastrointestinal: Yes: Soft, Abdomen, Obese. No: Tenderness Edema: No Labs: CBC, BMP 11/13/18 06:10 11/13/18 06:10 INR, PTT INR 1.14 (0.83-1.09) H 11/11/18 15:44 Assessment/Plan BILATERAL PNEUMONIA S/P SYNCOPE GREY MULTIPLE ANTIBIOTIC ALLERGIES CONTINUE LEVAQUIN / VANCOMYCIN IF STABLE SUBSTITUTE PO LEVAQUIN FOR ADDITIONAL 7D
--- NOTE | 2018-11-13 14:12 | CON.PULM ---
Consult Consult Specialty:: PULMONARY Referred by:: DENZEL Reason for Consultation:: PNEUMONIA - History of Present Illness Chief Complaint: SOB/COUGH/WHEEZE History of Present Illness: The patient is a 28 year old female with PMH significant for borderline personality disorder, obstructive sleep apnea, superior mesenteric artery syndrome, Diogenes's thyroiditis, and opioid abuse (percocet, vicodin). She presented to the ER with complaints of shortness of breath, dizziness, and lethargy for the past 3 days, and chest discomfort associated with nausea for the past 1 day. She has a history of recreational use of Xanax, Vicodin, and Percocet, but had not used any for the past 2 years until last Friday (11/02), when she took multiple pills of Xanax and was found on [address] by a neighbor. She was taken to [facility] where she received narcan and was discharged after 24 hours. She now has cough/wheeze and found to have bilateral patchy infiltrates. 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 No: Asthma, COPD, O2 Dependent Gastrointestinal: No: Ascites Hepatobiliary: No: Cirrhosis ...LMP: 11/05/18 ...: No Endocrine: Yes: Other (thyroiditis) - Alcohol/Substance Use Hx Alcohol Use: No - Smoking History Smoking history: Current every day smoker Have you smoked in the past 12 months: Yes Aproximately how many cigarettes per day: 2 Home Medications - Allergies Allergies/Adverse Reactions: Allergies Allergy/AdvReac Type Severity Reaction Status Date / Time cefdinir [Cefdinir] Allergy Verified 11/11/18 14:29 cephalexin [From Keflex] Allergy Verified 11/11/18 14:29 haloperidol [From Haldol] Allergy Verified 11/11/18 14:29 haloperidol lactate Allergy Verified 11/11/18 14:29 [From Haldol] Penicillins Allergy Verified 11/11/18 14:29 shellfish derived Allergy Verified 11/11/18 14:29 Sulfa (Sulfonamide Allergy Verified 11/11/18 14:29 Antibiotics) venom-honey bee Allergy Verified 11/11/18 14:29 [bee venom (honey bee)] iv contrast Allergy Uncoded 11/11/18 14:29 - Home Medications Home Medications: Ambulatory Orders Alprazolam 2 mg PO TID 11/12/18 Clonazepam [Klonopin] 1 mg PO BID 11/12/18 Fluvoxamine Maleate [Fluvoxamine Maleate ER] 150 mg PO BID 11/12/18 Gabapentin 300 mg PO QID 11/12/18 Lamotrigine 200 mg PO BID 11/12/18 Levothyroxine [Synthroid -] 125 mcg PO DAILY 11/12/18 Suboxone 12 mg-3 mg Sl Film 24 mg PO DAILY 11/12/18 traZODone HCL [Trazodone HCl] 100 mg PO HS 11/12/18 Family Disease History - Family Disease History Family History: Unremarkable Review of Systems - Review of Systems Constitutional: reports: Fever, Lethargy, Loss of Appetite Eyes: denies: Blurred Vision HENT: denies: Difficult Swallowing Neck: denies: Decreased ROM Cardiovascular: denies: Chest Pain Respiratory: reports: Cough, Exercise Intolerance, SOB, SOB on Exertion, Wheezing. denies: Hemoptysis Gastrointestinal: denies: Abdominal Pain Genitourinary: denies: Burning Physical Exam Vital Sings: Vital Signs Temperature 98.1 F 11/13/18 13:50 Pulse Rate 71 11/13/18 13:50 Respiratory Rate 18 11/13/18 12:25 Blood Pressure 122/68 11/13/18 13:50 O2 Sat by Pulse Oximetry (%) 95 11/12/18 21:00 Constitutional: Yes: Anxious Eyes: Yes: EOM Intact HENT: Yes: Normocephalic Neck: Yes: Trachea Midline Cardiovascular: Yes: Regular Rate and Rhythm Respiratory: Yes: Rhonchi, Wheezes Gastrointestinal: Yes: Soft Edema: No Labs: CBC, BMP 11/13/18 06:10 11/13/18 06:10 Imaging - Results Chest X-ray: Report Reviewed Cat Scan: Report Reviewed, Image Reviewed Problem List - Problems (1) Pneumonia in diseases classified elsewhere Code(s): J17 - PNEUMONIA IN DISEASES CLASSIFIED ELSEWHERE (2) Hypoxia Code(s): R09.02 - HYPOXEMIA (3) Shortness of breath Code(s): R06.02 - SHORTNESS OF BREATH Assessment/Plan BILATERAL PATCHY INFILTRATES/WHEEZES/HYPOXEMIA 2-3 DAYS POST OVERDOSE MAY HAVE AN ASPIRATION ETIOLOGY ANTIBIOTICS/SHORT TRIAL OF STEROIDS/DUONEB Q 4/O2 NASAL WILL FOLLOW Felicitas LYNNE MD
[2018-11-13] MEDS: methylPREDNISolone NA SUCC 40 MG/1 ML VIAL IVPUSH SCH ×2 (14:39→22:56)
[2018-11-13] MEDS: ALBUTEROL SO4 2.5/IPRATROPIUM 0.5 INH SOL 3 ML VIAL.NEB. NEB SCH ×2 (15:52→20:50)
[2018-11-13] MEDS: traZODone HCL 50 MG TABLET (FP) PO SCH (21:36)
[2018-11-13] MEDS: ACETAMINOPHEN 1000 MG/100 ML VIAL (NON FORMULARY) IVPB PRN (21:41)
[2018-11-14] MEDS: ALBUTEROL SO4 2.5/IPRATROPIUM 0.5 INH SOL 3 ML VIAL.NEB. NEB SCH ×7 (00:30→22:30)
[2018-11-14] MEDS: SODIUM CHLORIDE 1,000 ML IV SCH (03:23)
[2018-11-14] MEDS: methylPREDNISolone NA SUCC 40 MG/1 ML VIAL IVPUSH SCH ×3 (03:25→17:09)
[2018-11-14] MEDS: VANCOMYCIN 1 GRAM (PRE-DOCKED) 1,000 MG/250 ML BAG IVPB SCH ×2 (03:35→16:14)
[2018-11-14] MEDS: GABAPENTIN 300 MG CAPSULE (FP) PO SCH ×2 (06:30→13:45)
[2018-11-14] MEDS: LEVOTHYROXINE NA 125 MCG TABLET (FP) PO SCH (06:30)
[2018-11-14] MEDS ORDERED: PT OWN MED DRAWER 7, Y5N ONE ×2 (07:46→09:42)
[2018-11-14 08:25] LABS: HEMATOCRIT 32.2 % (32.4-45.2); MCH 30.6 pg (25.7-33.7); MCHC 34.3 g/dl (32.0-36.0); MEAN CELL VOLUME 89.2 fl (80-96); PLATELET COUNT 221 K/MM3 (134-434); RBC 3.61 M/mm3 (3.60-5.2); RDW 13.9 % (11.6-15.6); WHITE BLOOD COUNT 4.5 K/mm3 (4.0-10.0)
[2018-11-14 09:10] LABS: ALBUMIN 3.3 g/dl (3.4-5.0); BILIRUBIN,TOTAL 0.2 mg/dL (0.2-1); BLOOD UREA NITROGEN 8.9 mg/dL (7-18); CALCIUM 9.6 mg/dL (8.5-10.1); CREATININE 0.7 mg/dL (0.55-1.3); POTASSIUM 4.5 mmol/L (3.5-5.1); TOT PROT 6.7 g/dl (6.4-8.2)
[2018-11-14] MEDS: ENOXAPARIN NA (PORCINE) 100 MG/1 ML DISP.SYRIN SQ SCH (09:40)
[2018-11-14] MEDS: lamoTRIgine 100 MG TABLET (FP) PO SCH (09:40)
[2018-11-14] MEDS: BUPRENORPHINE/NALOXONE 8 MG/2 MG FILM PACKET SL SCH (09:41)
[2018-11-14] MEDS: NICOTINE 14 MG/24 HOURS TOPICAL PATCH TD SCH (09:41)
--- NOTE | 2018-11-14 11:40 | PN ---
Progress Note (short form) - Note Progress Note: PULMONARY Still some dyspnea with exertion. c/o "lung pain." Occasional nonproductive cough. Vital Signs Period Temp Pulse Resp BP Sys/Woody Pulse Ox Last 24 Hr 97.5 F-98.7 F 58-78 18-20 107-138/57-81 94-97 Gen: NAD at rest Heart: RRR Lung: scattered rhonchi Abd: soft, nontender Ext: no edema CBC, BMP 11/14/18 06:30 11/14/18 06:30 Active Medications Acetaminophen (Tylenol -) 650 mg PO Q6H PRN PRN Reason: Fever Or Pain Last Admin: 11/12/18 15:34 Dose: 650 mg Acetaminophen (Ofirmev Injection -) 1,000 mg IVPB Q6H PRN PRN Reason: PAIN LEVEL 6-10 Last Admin: 11/13/18 21:41 Dose: 1,000 mg Albuterol/Ipratropium (Duoneb -) 1 amp NEB RQ4H [facility] Last Admin: 11/14/18 08:07 Dose: 1 amp Buprenorphine/Naloxone (Suboxone 8 Mg/2mg Sl Film -) 3 each SL DAILY [facility] Last Admin: 11/14/18 09:41 Dose: 3 each Clonazepam (Klonopin -) 1 mg PO BID PRN PRN Reason: AGITATION Last Admin: 11/13/18 21:50 Dose: 1 mg Enoxaparin Sodium (Lovenox -) 90 mg SQ BID [facility] Last Admin: 11/14/18 09:40 Dose: 90 mg Fluvoxamine Maleate (Luvox -) 300 mg PO DAILY [facility] Last Admin: 11/14/18 09:43 Dose: 300 mg Gabapentin (Neurontin -) 300 mg PO TID [facility] Last Admin: 11/14/18 06:30 Dose: 300 mg Sodium Chloride (Normal Saline -) 1,000 mls @ 75 mls/hr IV ASDIR [facility] Last Admin: 11/14/18 03:23 Dose: 75 mls/hr Levofloxacin (Levaquin 500 Mg Premixed Ivpb -) 500 mg in 100 mls @ 100 mls/hr IVPB DAILY [facility]; Protocol Last Admin: 11/14/18 09:39 Dose: 100 mls/hr Vancomycin HCl (Vancomycin (Pre-Docked)) 1,000 mg in 250 mls @ 166.667 mls/hr IVPB Q12H [facility]; Protocol Last Admin: 11/14/18 03:35 Dose: 166.667 mls/hr Lamotrigine (Lamictal -) 400 mg PO DAILY [facility] Last Admin: 11/14/18 09:40 Dose: 400 mg Levothyroxine Sodium (Synthroid -) 125 mcg PO DAILY@0700 [facility] Last Admin: 11/14/18 06:30 Dose: 125 mcg Methylprednisolone Sodium Succinate (Solu-Medrol -) 40 mg IVPUSH Q8H-IV [facility] Last Admin: 11/14/18 09:36 Dose: 40 mg Nicotine (Nicoderm Patch -) 14 mg TD DAILY [facility] Last Admin: 11/14/18 09:41 Dose: 14 mg Trazodone HCl (Desyrel -) 25 mg PO HS [facility] Last Admin: 11/13/18 21:36 Dose: 25 mg A/P Pneumonia r/o Acute Bronchospasm GREY h/o Diogenes's Opiate Dependence - continue medrol same dose - inhaled bronchodilators - O2 to keep SpO2 >90% - continue antibiotics per ID - f/u cultures - do not suspect PE given negative dopplers, normal echo and abnormal chest imaging c/w pneumonia - can stop full anticoagulation - DVT prophylaxis
[2018-11-14] MEDS: clonazePAM 0.5 MG TABLET PO PRN ×2 (13:51→20:17)
[2018-11-14 16:48] VITALS: BMI 41.3
--- NOTE | 2018-11-14 19:17 | PN ---
Progress Note (short form) - Note Progress Note: Patient is feeling better , mother at bedside. Vital Signs Temperature 97.7 F 11/14/18 10:00 Pulse Rate 58 L 11/14/18 10:00 Respiratory Rate 20 11/14/18 10:00 Blood Pressure 138/81 11/14/18 10:00 O2 Sat by Pulse Oximetry (%) 94 L 11/14/18 09:00 GENERAL: The patient is awake, alert, and fully oriented, in no acute distress. HEAD: Normal with no signs of trauma. EYES: PERRL, extraocular movements intact, sclera anicteric, conjunctiva clear. ENT: Ears normal, oropharynx clear without exudates, moist mucous membranes. NECK: Trachea midline, full range of motion, supple. LUNGS:CTA BL , no wheezing, no crackles, no accessory muscle use. HEART: Regular rate and rhythm, S1, S2 without murmur, rub or gallop. ABDOMEN: Soft, NT,ND, normoactive bowel sounds, no guarding, no rebound, no hepatosplenomegaly, no masses. EXTREMITIES: 2+ pulses, warm, well-perfused, no edema. NEUROLOGICAL: Cranial nerves II through XII grossly intact. Normal speech, gait not observed. PSYCH: Normal mood, normal affect. SKIN: Warm, dry, normal turgor, no rashes or lesions noted CBCD WBC 4.5 K/mm3 (4.0-10.0) 11/14/18 06:30 RBC 3.61 M/mm3 (3.60-5.2) 11/14/18 06:30 Hgb 11.0 GM/dL (10.7-15.3) 11/14/18 06:30 Hct 32.2 % (32.4-45.2) L 11/14/18 06:30 MCV 89.2 fl (80-96) 11/14/18 06:30 MCHC 34.3 g/dl (32.0-36.0) 11/14/18 06:30 RDW 13.9 % (11.6-15.6) 11/14/18 06:30 Plt Count 221 K/MM3 (134-434) D 11/14/18 06:30 MPV 8.0 fl (7.5-11.1) 11/14/18 06:30 CMP Sodium 139 mmol/L (136-145) 11/14/18 06:30 Potassium 4.5 mmol/L (3.5-5.1) 11/14/18 06:30 Chloride 104 mmol/L (98-107) 11/14/18 06:30 Carbon Dioxide 28 mmol/L (21-32) 11/14/18 06:30 Anion Gap 7 MMOL/L (8-16) L 11/14/18 06:30 BUN 8.9 mg/dL (7-18) 11/14/18 06:30 Creatinine 0.7 mg/dL (0.55-1.3) 11/14/18 06:30 Random Glucose 122 mg/dL (74-106) H 11/14/18 06:30 Calcium 9.6 mg/dL (8.5-10.1) 11/14/18 06:30 Total Bilirubin 0.2 mg/dL (0.2-1) 11/14/18 06:30 AST 29 U/L (15-37) 11/14/18 06:30 ALT 76 U/L (13-61) H 11/14/18 06:30 Alkaline Phosphatase 294 U/L (45-117) H 11/14/18 06:30 Total Protein 6.7 g/dl (6.4-8.2) 11/14/18 06:30 Albumin 3.3 g/dl (3.4-5.0) L 11/14/18 06:30 CARDIAC ENZYMES Troponin I < 0.02 ng/ml (0.00-0.05) 11/12/18 06:17 Current Medications Generic Name Dose Route Start Last Admin Trade Name Marjan PRN Reason Stop Dose Admin Acetaminophen 650 mg 11/12/18 00:30 11/12/18 15:34 Tylenol - PO 650 mg Q6H PRN Administration Fever Or Pain Acetaminophen 1,000 mg 11/12/18 16:44 11/13/18 21:41 Ofirmev Injection - IVPB 1,000 mg Q6H PRN Administration PAIN LEVEL 6-10 Albuterol/Ipratropium 1 amp 11/14/18 12:00 11/14/18 15:39 Duoneb - NEB 1 amp RQID JESSENIA Administration Buprenorphine/Naloxone 3 each 11/13/18 10:00 11/14/18 09:41 Suboxone 8 Mg/2mg Sl Film - SL 3 each DAILY JESSENIA Administration Clonazepam 1 mg 11/12/18 17:54 11/14/18 13:51 Klonopin - PO 1 mg BID PRN Administration AGITATION Enoxaparin Sodium 90 mg 11/12/18 10:00 11/14/18 09:40 Lovenox - SQ 90 mg BID JESSENIA Administration Fluvoxamine Maleate 300 mg 11/14/18 10:00 11/14/18 09:43 Luvox - PO 300 mg DAILY JESSENIA Administration Gabapentin 300 mg 11/12/18 06:00 11/14/18 13:45 Neurontin - PO 300 mg TID JESSENIA Administration Sodium Chloride 1,000 mls @ 75 mls/hr 11/12/18 00:30 11/14/18 03:23 Normal Saline - IV 75 mls/hr ASDIR JESSENIA Administration Levofloxacin 500 mg in 100 mls @ 100 mls/hr 11/13/18 10:00 11/14/18 09:39 Levaquin 500 Mg Premixed Ivpb - IVPB 100 mls/hr DAILY JESSENIA Administration Protocol Vancomycin HCl 1,000 mg in 250 mls @ 166.667 mls/hr 11/12/18 16:30 11/14/18 16:14 Vancomycin (Pre-Docked) IVPB 166.667 mls/hr Q12H JESSENIA Administration Protocol Lamotrigine 400 mg 11/14/18 10:00 11/14/18 09:40 Lamictal - PO 400 mg DAILY JESSENIA Administration Levothyroxine Sodium 125 mcg 11/12/18 07:00 11/14/18 06:30 Synthroid - PO 125 mcg DAILY@0700 JESSENIA Administration Methylprednisolone Sodium Succinate 40 mg 11/13/18 14:30 11/14/18 17:09 Solu-Medrol - IVPUSH 40 mg Q8H-IV JESSENIA Administration Nicotine 14 mg 11/13/18 10:00 11/14/18 09:41 Nicoderm Patch - TD 14 mg DAILY JESSENIA Administration Trazodone HCl 25 mg 11/12/18 22:00 11/13/18 21:36 Desyrel - PO 25 mg HS JESSENIA Administration Home Medications Medication Instructions Recorded Alprazolam 2 mg PO TID 11/12/18 Clonazepam [Klonopin] 1 mg PO BID 11/12/18 Fluvoxamine Maleate [Fluvoxamine 150 mg PO BID 11/12/18 Maleate ER] Gabapentin 300 mg PO QID 11/12/18 Lamotrigine 200 mg PO BID 11/12/18 Levothyroxine [Synthroid -] 125 mcg PO DAILY 11/12/18 Suboxone 12 mg-3 mg Sl Film 24 mg PO DAILY 11/12/18 traZODone HCL [Trazodone HCl] 100 mg PO HS 11/12/18 Microbiology 11/11/18 16:00 Blood - Peripheral Venous Blood Culture - Preliminary NO GROWTH OBTAINED AFTER 96 HOURS, INCUBATION TO CONTINUE FOR 1 DAYS. 11/11/18 15:44 Blood - Peripheral Venous Blood Culture - Preliminary NO GROWTH OBTAINED AFTER 96 HOURS, INCUBATION TO CONTINUE FOR 1 DAYS. 11/13/18 16:00 Sputum - Expectorated Gram Stain - Final 11/13/18 16:00 Sputum - Expectorated Sputum Culture - Preliminary NORMAL RESPIRATORY TRUE 11/12/18 20:00 Urine - Urine Clean Catch Urine Culture - Final NO GROWTH OBTAINED 11/12/18 20:00 Urine For Antigen Detection Legionella Antigen - Final 11/12/18 20:00 Urine For Antigen Detection Streptococcus pneumoniae Antigen (M - Final CTA in am for possible PE CXR: Rt middle and lower lobe infiltrate Chest/abd CT: bilateral PNA in upper lobes and R middle lobe. Trace bilateral pleural effusion. Splenomegaly. Abd US: s/p cholecystectomy, fatty infiltrate of liver ASSESSMENT AND PLAN: Patient is a 28 year old woman with pmhx of borderline personality disorder, GREY , SMA syndrome, hashimotos, hemorrhoids, and prescription drug abuse including percocet, vicodin, and xanax. who presented to the ED on 11/11 with 3 days of SOB , dizziness, and lethargy and 1 day of vomiting and was found to have BL Pneumonia. # Bilateral Pneumonia - ON IV Levaquin 500mg continue and Vancomycin ,due to allergic to PCN . Presented with temp 102.2, legionella neg.and strept. negative , HIV neg. Pulm. consulted. On short term use of steroids. Her 02 sat 98% rm air as per our exam ,incentive spirometer suggested for the patient to use. # patient looks comfortable post IV antibiotic saturating well on room air, low suspecious to PE. #Transaminitis: US Abdomen showing fatty infiltrates of liver , F/U Hep serology , No Fat/low diet recommended and weight loss #Opoid dependency: Dr. Lewis consulted, appreciate her recommendations #Hx of borderline personality disorder continue home meds, DVT Px: Lovenox sq Visit type - Emergency Visit Emergency Visit: Yes ED Registration Date: 11/11/18 Care time: The patient presented to the Emergency Department on the above date and was hospitalized for further evaluation of their emergent condition. - New Patient This patient is new to me today: No - Critical Care Critical Care patient: No - Discharge Referral Referred to [facility] Med P.C.: No
[2018-11-14] MEDS: traZODone HCL 50 MG TABLET (FP) PO SCH (21:43)
[2018-11-14] MEDS: hydrOXYzine PAMOATE 25 MG CAPSULE (FP) PO PRN (22:24)
[2018-11-15] MEDS: methylPREDNISolone NA SUCC 40 MG/1 ML VIAL IVPUSH SCH ×3 (02:13→21:05)
[2018-11-15] MEDS: VANCOMYCIN 1 GRAM (PRE-DOCKED) 1,000 MG/250 ML BAG IVPB SCH ×2 (04:31→17:30)
[2018-11-15] MEDS: LEVOTHYROXINE NA 125 MCG TABLET (FP) PO SCH (06:12)
[2018-11-15] MEDS: ALBUTEROL SO4 2.5/IPRATROPIUM 0.5 INH SOL 3 ML VIAL.NEB. NEB SCH ×4 (07:50→20:38)
--- NOTE | 2018-11-15 08:49 | PN ---
Physical Exam: SUBJECTIVE: Patient seen and examined at bedside- no acute events overnight; patient states that she is feeling better she is no longer having chest pain and she feels her breathing is improving she is just very tired; she denies any CP/N/V OBJECTIVE: Vital Signs Period Temp Pulse Resp BP Sys/Woody Pulse Ox Last 24 Hr 97.5 F-98.1 F 54-70 18-20 131-138/67-81 94-98 GENERAL: The patient is awake, alert, and fully oriented, in no acute distress. EYES: PEERLA; EOMI: no scleral icterus NECK: no JVD; no lymphadenopathy LUNGS: slight wheezes appreciated at the bases; no rales/rhonchi HEART: Regular rate and rhythm, S1, S2 without murmur, rub or gallop. ABDOMEN: soft; NT/ND +BS in all 4 quadrants EXTREMITIES: 2+ pulses, warm, well-perfused, no edema. PSYCH: Normal mood, normal affect. SKIN: Warm, dry, normal turgor, no rashes or lesions noted Laboratory Results - last 24 hr 11/14/18 11/14/18 06:30 06:30 WBC 4.5 RBC 3.61 Hgb 11.0 Hct 32.2 L MCV 89.2 MCH 30.6 MCHC 34.3 RDW 13.9 Plt Count 221 D MPV 8.0 Sodium 139 Potassium 4.5 Chloride 104 Carbon Dioxide 28 Anion Gap 7 L BUN 8.9 Creatinine 0.7 Est GFR (CKD-EPI)AfAm 137.62 Est GFR (CKD-EPI)NonAf 118.74 Random Glucose 122 H Calcium 9.6 Total Bilirubin 0.2 AST 29 ALT 76 H Alkaline Phosphatase 294 H Total Protein 6.7 Albumin 3.3 L Active Medications Generic Name Dose Route Start Last Admin Trade Name Freq PRN Reason Stop Dose Admin Acetaminophen 650 mg 11/12/18 00:30 11/12/18 15:34 Tylenol - PO 650 mg Q6H PRN Administration Fever Or Pain Albuterol/Ipratropium 1 amp 11/14/18 12:00 11/15/18 07:50 Duoneb - NEB 1 amp RQID JESSENIA Administration Buprenorphine/Naloxone 3 each 11/13/18 10:00 11/14/18 09:41 Suboxone 8 Mg/2mg Sl Film - SL 3 each DAILY JESSENIA Administration Clonazepam 0.5 mg 11/14/18 19:47 11/14/18 20:17 Klonopin - PO 0.5 mg BID PRN Administration AGITATION Fluvoxamine Maleate 300 mg 11/14/18 10:00 11/14/18 09:43 Luvox - PO 300 mg DAILY JESSENIA Administration Hydroxyzine Pamoate 25 mg 11/14/18 19:50 11/14/18 22:24 Vistaril - PO 25 mg Q8H PRN Administration FOR ITCHING Levofloxacin 500 mg in 100 mls @ 100 mls/hr 11/13/18 10:00 11/14/18 09:39 Levaquin 500 Mg Premixed Ivpb - IVPB 100 mls/hr DAILY JESSENIA Administration Protocol Vancomycin HCl 1,000 mg in 250 mls @ 166.667 mls/hr 11/12/18 16:30 11/15/18 04:31 Vancomycin (Pre-Docked) IVPB 166.667 mls/hr Q12H JESSENIA Administration Protocol Lamotrigine 400 mg 11/14/18 10:00 11/14/18 09:40 Lamictal - PO 400 mg DAILY JESSENIA Administration Levothyroxine Sodium 125 mcg 11/12/18 07:00 11/15/18 06:12 Synthroid - PO 125 mcg DAILY@0700 JESSENIA Administration Methylprednisolone Sodium Succinate 40 mg 11/13/18 14:30 11/15/18 02:13 Solu-Medrol - IVPUSH 40 mg Q8H-IV JESSENIA Administration Nicotine 14 mg 11/13/18 10:00 11/14/18 09:41 Nicoderm Patch - TD 14 mg DAILY JESSENIA Administration Trazodone HCl 25 mg 11/12/18 22:00 11/14/18 21:43 Desyrel - PO 25 mg HS JESSENIA Administration ASSESSMENT/PLAN: Patient is a 28 year old woman with pmhx of borderline personality disorder, GREY , SMA syndrome, hashimotos, hemorrhoids, and prescription drug abuse including percocet, vicodin, and xanax. who presented to the ED on 11/11 with 3 days of SOB , dizziness, and lethargy and 1 day of vomiting. # Bilateral Pneumonia -urine legionella and cultures negative - vancomycin and IV levaquin 500mg (day 4) -duonebs q4H -solumedrol 40 BID -incentive spirometery -Pulm consulted #R/O PE - Patient is stable and improving on antibiotics regimin, will continue to monitor -echo and dopplers both negative -no need for any more AC according to pul #Transaminitis - AST 61, ALT 96, ALP 307 - US Abdomen showing fatty infiltrates of liver - F/U Hep serology #Transaminitis: US Abdomen showing fatty infiltrates of liver , F/U Hep serology , No Fat/low diet recommended and weight loss #Opioid misuse - Dr. Lewis consulted, -saboxone daily -klonopin 0.5mg BID PRN #Pmhx of borderline personality disorder, GREY, SMA syndrome, hashimotos - Continuing home medications - trazodone 25mg PO daily - Luvox 300mg daily - Synthroid 125mcg PO daily - Lamictal 200 PO BID - Gabapentin 300mg PO TID F/E/N not on fluids regular diet monitor electolytes Problem List - Problems (1) Pneumonia in diseases classified elsewhere Code(s): J17 - PNEUMONIA IN DISEASES CLASSIFIED ELSEWHERE Visit type - Emergency Visit Emergency Visit: Yes ED Registration Date: 11/11/18 Care time: The patient presented to the Emergency Department on the above date and was hospitalized for further evaluation of their emergent condition. - New Patient This patient is new to me today: No - Critical Care Critical Care patient: No ATTENDING PHYSICIAN STATEMENT I saw and evaluated the patient. I reviewed the resident's note and discussed the case with the resident. I agree with the resident's findings and plan as documented. SUBJECTIVE: OBJECTIVE: ASSESSMENT AND PLAN:
[2018-11-15] MEDS ORDERED: PT OWN MED DRAWER 7, Y5N ONE (10:05)
[2018-11-15] MEDS: BUPRENORPHINE/NALOXONE 8 MG/2 MG FILM PACKET SL SCH (10:09)
[2018-11-15] MEDS: lamoTRIgine 100 MG TABLET (FP) PO SCH (10:09)
[2018-11-15] MEDS: NICOTINE 14 MG/24 HOURS TOPICAL PATCH TD SCH (10:09)
[2018-11-15] MEDS: clonazePAM 0.5 MG TABLET PO PRN ×2 (10:24→21:05)
[2018-11-15] MEDS: ACETAMINOPHEN 325 MG TABLET (FP) PO PRN (10:28)
--- NOTE | 2018-11-15 11:10 | PN ---
Progress Note (short form) - Note Progress Note: PULMONARY Nodding off, just received suboxone. States breathing better today. Denies chest pain. Vital Signs Period Temp Pulse Resp BP Sys/Woody Pulse Ox Last 24 Hr 97.5 F-98.1 F 54-70 18-18 131-138/67-78 98 Gen: NAD at rest Heart: RRR Lung: decreased breath sounds at the bases Abd: soft, nontender Ext: no edema CBC, BMP 11/14/18 06:30 11/14/18 06:30 Active Medications Acetaminophen (Tylenol -) 650 mg PO Q6H PRN PRN Reason: Fever Or Pain Last Admin: 11/15/18 10:28 Dose: 650 mg Albuterol/Ipratropium (Duoneb -) 1 amp NEB RQID [facility] Last Admin: 11/15/18 07:50 Dose: 1 amp Buprenorphine/Naloxone (Suboxone 8 Mg/2mg Sl Film -) 3 each SL DAILY [facility] Last Admin: 11/15/18 10:09 Dose: 3 each Clonazepam (Klonopin -) 0.5 mg PO BID PRN PRN Reason: AGITATION Last Admin: 11/15/18 10:24 Dose: 0.5 mg Fluvoxamine Maleate (Luvox -) 300 mg PO DAILY [facility] Last Admin: 11/15/18 10:09 Dose: 300 mg Hydroxyzine Pamoate (Vistaril -) 25 mg PO Q8H PRN PRN Reason: FOR ITCHING Last Admin: 11/14/18 22:24 Dose: 25 mg Levofloxacin (Levaquin 500 Mg Premixed Ivpb -) 500 mg in 100 mls @ 100 mls/hr IVPB DAILY [facility]; Protocol Last Admin: 11/15/18 10:09 Dose: 100 mls/hr Vancomycin HCl (Vancomycin (Pre-Docked)) 1,000 mg in 250 mls @ 166.667 mls/hr IVPB Q12H JESSENIA; Protocol Last Admin: 11/15/18 04:31 Dose: 166.667 mls/hr Lamotrigine (Lamictal -) 400 mg PO DAILY [facility] Last Admin: 11/15/18 10:09 Dose: 400 mg Levothyroxine Sodium (Synthroid -) 125 mcg PO DAILY@0700 JESSENIA Last Admin: 11/15/18 06:12 Dose: 125 mcg Methylprednisolone Sodium Succinate (Solu-Medrol -) 40 mg IVPUSH BID [facility] Nicotine (Nicoderm Patch -) 14 mg TD DAILY [facility] Last Admin: 11/15/18 10:09 Dose: 14 mg Trazodone HCl (Desyrel -) 25 mg PO HS [facility] Last Admin: 11/14/18 21:43 Dose: 25 mg A/P Pneumonia r/o Acute Bronchospasm GREY h/o Diogenes's Opiate Dependence - can change steroids to PO prednisone 40mg daily and complete 5 day course total - inhaled bronchodilators - O2 to keep SpO2 >90% - continue antibiotics per ID - f/u cultures - do not suspect PE given negative dopplers, normal echo and abnormal chest imaging c/w pneumonia - DVT prophylaxis
--- NOTE | 2018-11-15 16:42 | PN ---
Teaching Attending Note Name of Resident: Mattie Polo ATTENDING PHYSICIAN STATEMENT I saw and evaluated the patient. I reviewed the resident's note and discussed the case with the resident. I agree with the resident's findings and plan as documented. SUBJECTIVE: Patient is feeling better with no acute distress, improving. OBJECTIVE: Vital Signs Temperature 98.2 F 11/15/18 13:33 Pulse Rate 91 H 11/15/18 13:33 Respiratory Rate 18 11/15/18 13:33 Blood Pressure 129/65 11/15/18 13:33 O2 Sat by Pulse Oximetry (%) 98 11/15/18 09:00 GENERAL: The patient is awake, alert, and fully oriented, in no acute distress. HEAD: Normal with no signs of trauma. EYES: PERRL, extraocular movements intact, sclera anicteric, conjunctiva clear. ENT: Ears normal, oropharynx clear without exudates, moist mucous membranes. NECK: Trachea midline, full range of motion, supple. LUNGS:CTA BL , no wheezing, no crackles, no accessory muscle use. HEART: Regular rate and rhythm, S1, S2 without murmur, rub or gallop. ABDOMEN: Soft, NT,ND, normoactive bowel sounds, no guarding, no rebound, no hepatosplenomegaly, no masses. EXTREMITIES: 2+ pulses, warm, well-perfused, no edema. NEUROLOGICAL: Cranial nerves II through XII grossly intact. Normal speech, gait not observed. PSYCH: Normal mood, normal affect. SKIN: Warm, dry, normal turgor, no rashes or lesions noted CBCD WBC 4.5 K/mm3 (4.0-10.0) 11/14/18 06:30 RBC 3.61 M/mm3 (3.60-5.2) 11/14/18 06:30 Hgb 11.0 GM/dL (10.7-15.3) 11/14/18 06:30 Hct 32.2 % (32.4-45.2) L 11/14/18 06:30 MCV 89.2 fl (80-96) 11/14/18 06:30 MCHC 34.3 g/dl (32.0-36.0) 11/14/18 06:30 RDW 13.9 % (11.6-15.6) 11/14/18 06:30 Plt Count 221 K/MM3 (134-434) D 11/14/18 06:30 MPV 8.0 fl (7.5-11.1) 11/14/18 06:30 CMP Sodium 139 mmol/L (136-145) 11/14/18 06:30 Potassium 4.5 mmol/L (3.5-5.1) 11/14/18 06:30 Chloride 104 mmol/L (98-107) 11/14/18 06:30 Carbon Dioxide 28 mmol/L (21-32) 11/14/18 06:30 Anion Gap 7 MMOL/L (8-16) L 11/14/18 06:30 BUN 8.9 mg/dL (7-18) 11/14/18 06:30 Creatinine 0.7 mg/dL (0.55-1.3) 11/14/18 06:30 Random Glucose 122 mg/dL (74-106) H 11/14/18 06:30 Calcium 9.6 mg/dL (8.5-10.1) 11/14/18 06:30 Total Bilirubin 0.2 mg/dL (0.2-1) 11/14/18 06:30 AST 29 U/L (15-37) 11/14/18 06:30 ALT 76 U/L (13-61) H 11/14/18 06:30 Alkaline Phosphatase 294 U/L (45-117) H 11/14/18 06:30 Total Protein 6.7 g/dl (6.4-8.2) 11/14/18 06:30 Albumin 3.3 g/dl (3.4-5.0) L 11/14/18 06:30 CARDIAC ENZYMES Troponin I < 0.02 ng/ml (0.00-0.05) 11/12/18 06:17 Current Medications Generic Name Dose Route Start Last Admin Trade Name Freq PRN Reason Stop Dose Admin Acetaminophen 650 mg 11/12/18 00:30 11/15/18 10:28 Tylenol - PO 650 mg Q6H PRN Administration Fever Or Pain Albuterol/Ipratropium 1 amp 11/14/18 12:00 11/15/18 16:10 Duoneb - NEB 1 amp RQID JESSENIA Administration Buprenorphine/Naloxone 3 each 11/13/18 10:00 11/15/18 10:09 Suboxone 8 Mg/2mg Sl Film - SL 3 each DAILY JESSENIA Administration Clonazepam 0.5 mg 11/14/18 19:47 11/15/18 10:24 Klonopin - PO 0.5 mg BID PRN Administration AGITATION Fluvoxamine Maleate 300 mg 11/14/18 10:00 11/15/18 10:09 Luvox - PO 300 mg DAILY JESSENIA Administration Hydroxyzine Pamoate 25 mg 11/14/18 19:50 11/14/18 22:24 Vistaril - PO 25 mg Q8H PRN Administration FOR ITCHING Levofloxacin 500 mg in 100 mls @ 100 mls/hr 11/13/18 10:00 11/15/18 10:09 Levaquin 500 Mg Premixed Ivpb - IVPB 100 mls/hr DAILY JESSENIA Administration Protocol Vancomycin HCl 1,000 mg in 250 mls @ 166.667 mls/hr 11/12/18 16:30 11/15/18 04:31 Vancomycin (Pre-Docked) IVPB 166.667 mls/hr Q12H JESSENIA Administration Protocol Lamotrigine 400 mg 11/14/18 10:00 11/15/18 10:09 Lamictal - PO 400 mg DAILY JESSENIA Administration Levothyroxine Sodium 125 mcg 11/12/18 07:00 11/15/18 06:12 Synthroid - PO 125 mcg DAILY@0700 JESSENIA Administration Methylprednisolone Sodium Succinate 40 mg 11/15/18 22:00 Solu-Medrol - IVPUSH BID JESSENIA Nicotine 14 mg 11/13/18 10:00 11/15/18 10:09 Nicoderm Patch - TD 14 mg DAILY JESSENIA Administration Trazodone HCl 25 mg 11/12/18 22:00 11/14/18 21:43 Desyrel - PO 25 mg HS JESSENIA Administration Home Medications Medication Instructions Recorded Alprazolam 2 mg PO TID 11/12/18 Clonazepam [Klonopin] 1 mg PO BID 11/12/18 Fluvoxamine Maleate [Fluvoxamine 150 mg PO BID 11/12/18 Maleate ER] Gabapentin 300 mg PO QID 11/12/18 Lamotrigine 200 mg PO BID 11/12/18 Levothyroxine [Synthroid -] 125 mcg PO DAILY 11/12/18 Suboxone 12 mg-3 mg Sl Film 24 mg PO DAILY 11/12/18 traZODone HCL [Trazodone HCl] 100 mg PO HS 11/12/18 Microbiology 11/11/18 16:00 Blood - Peripheral Venous Blood Culture - Preliminary NO GROWTH OBTAINED AFTER 96 HOURS, INCUBATION TO CONTINUE FOR 1 DAYS. 11/11/18 15:44 Blood - Peripheral Venous Blood Culture - Preliminary NO GROWTH OBTAINED AFTER 96 HOURS, INCUBATION TO CONTINUE FOR 1 DAYS. 11/13/18 16:00 Sputum - Expectorated Gram Stain - Final 11/13/18 16:00 Sputum - Expectorated Sputum Culture - Preliminary NORMAL RESPIRATORY TRUE 11/12/18 20:00 Urine - Urine Clean Catch Urine Culture - Final NO GROWTH OBTAINED 11/12/18 20:00 Urine For Antigen Detection Legionella Antigen - Final 11/12/18 20:00 Urine For Antigen Detection Streptococcus pneumoniae Antigen (M - Final ASSESSMENT AND PLAN: Patient is a 28 year old woman with pmhx of borderline personality disorder, GREY , SMA syndrome, hashimotos, hemorrhoids, and prescription drug abuse including percocet, vicodin, and xanax. who presented to the ED on 11/11 with 3 days of SOB , dizziness, and lethargy and 1 day of vomiting and was found to have BL Pneumonia. # Bilateral Pneumonia - ON IV Levaquin 500mg continue and Vancomycin ,due to allergic to PCN . Presented with temp 102.2, legionella neg.and strept. negative , HIV neg. Pulm. consulted. On short term use of steroids. Her 02 sat 98% rm air as per our exam ,incentive spirometer suggested for the patient to use. will start tapering her solumedrol IV to 2x per day. # patient looks comfortable post IV antibiotic saturating well on room air, low suspecious to PE. #Transaminitis: US Abdomen showing fatty infiltrates of liver , F/U Hep serology , Fat/low sodium diet recommended and weight loss #Opoid dependency: Dr. Lewis consulted, appreciate her recommendations #Hx of borderline personality disorder continue home meds. DVT Px: Lovenox sq
[2018-11-15] MEDS: ENOXAPARIN NA (PORCINE) 40 MG/0.4 ML DISP.SYRIN SQ SCH (17:35)
[2018-11-15] MEDS: hydrOXYzine PAMOATE 25 MG CAPSULE (FP) PO PRN (21:05)
[2018-11-15] MEDS ORDERED: ALBUTEROL SO4 0.083% IH SOL 2.5 MG/3 ML VIAL.NEB. NEB PRN (21:09)
[2018-11-15] MEDS: traZODone HCL 50 MG TABLET (FP) PO SCH (22:47)
[2018-11-16] MEDS: VANCOMYCIN 1 GRAM (PRE-DOCKED) 1,000 MG/250 ML BAG IVPB SCH (03:58)
[2018-11-16] MEDS: LEVOTHYROXINE NA 125 MCG TABLET (FP) PO SCH (06:01)
[2018-11-16] MEDS: ALBUTEROL SO4 2.5/IPRATROPIUM 0.5 INH SOL 3 ML VIAL.NEB. NEB SCH ×3 (07:42→16:23)
[2018-11-16 07:59] LABS: HEMATOCRIT 32.1 % (32.4-45.2); HEMOGLOBIN 10.8 GM/dL (10.7-15.3); MCH 30.2 pg (25.7-33.7); MCHC 33.7 g/dl (32.0-36.0); MEAN CELL VOLUME 89.5 fl (80-96); PLATELET COUNT 305 K/MM3 (134-434); RBC 3.59 M/mm3 (3.60-5.2); RDW 14.1 % (11.6-15.6); WHITE BLOOD COUNT 11.6 K/mm3 (4.0-10.0)
[2018-11-16 08:15] LABS: ALBUMIN 3.2 g/dl (3.4-5.0); BILIRUBIN,TOTAL 0.2 mg/dL (0.2-1); BLOOD UREA NITROGEN 14.8 mg/dL (7-18); CALCIUM 9.2 mg/dL (8.5-10.1); CREATININE 0.7 mg/dL (0.55-1.3); MAGNESIUM 2.2 mg/dL (1.8-2.4); POTASSIUM 4.4 mmol/L (3.5-5.1); TOT PROT 6.3 g/dl (6.4-8.2)
[2018-11-16] MEDS ORDERED: RANITIDINE HCL 150 MG TABLET (FP) PO SCH (10:15)
--- NOTE | 2018-11-16 11:46 | PN ---
Progress Note (short form) - Note Progress Note: PULMONARY VSS/AFEBRILE/SPO2 99% ON R/A FEELS LETHARGIC ANICTERIC CLEAR B/L LUNG STRATTON S1S2 BS+ NO EDEMA LABS/MEDS/NOTES/MICRO REVIEWED CXR PA/LAT REQUESTED FOR THIS AM B/L INFILTRATES OVERDOSE PRESCRIPTION OPIATES PERSONALITY DISORDER OSAS THYROID DISEASE SOLUMEDROL CHANGED TO PREDNISONE CAN TAPER OUTPATIENT CXR PENDING NO OBJECTION FROM PULMONARY STANDPOINT TO CONTINUE TO MONITOR AN OUTPATIENT R GUERA COSME Problem List - Problems (1) Pneumonia in diseases classified elsewhere Code(s): J17 - PNEUMONIA IN DISEASES CLASSIFIED ELSEWHERE (2) Hypoxia Code(s): R09.02 - HYPOXEMIA (3) Shortness of breath Code(s): R06.02 - SHORTNESS OF BREATH
[2018-11-16] MEDS ORDERED: predniSONE 10 MG TABLET (UD) PO SCH (12:00)
[2018-11-16] MEDS: NICOTINE 14 MG/24 HOURS TOPICAL PATCH TD SCH (12:02)
[2018-11-16] MEDS: lamoTRIgine 100 MG TABLET (FP) PO SCH (12:05)
[2018-11-16] MEDS: BUPRENORPHINE/NALOXONE 8 MG/2 MG FILM PACKET SL SCH (12:05)
[2018-11-16] MEDS: ENOXAPARIN NA (PORCINE) 40 MG/0.4 ML DISP.SYRIN SQ SCH (12:06)
[2018-11-16] MEDS: clonazePAM 0.5 MG TABLET PO PRN (12:12)
[2018-11-16] MEDS: methylPREDNISolone NA SUCC 40 MG/1 ML VIAL IVPUSH SCH (14:27)
--- NOTE | 2018-11-16 15:25 | DS ---
Physical Exam: SUBJECTIVE: Patient seen and examined Patient feels better today, no fever or chill, no shortness of breath. OBJECTIVE: Vital Signs Temperature 97.8 F 11/16/18 09:27 Pulse Rate 68 11/16/18 09:27 Respiratory Rate 16 11/16/18 09:27 Blood Pressure 95/45 L 11/16/18 09:27 O2 Sat by Pulse Oximetry (%) 99 11/16/18 09:00 GENERAL: The patient is awake, alert, and fully oriented, in no acute distress. HEAD: Normal with no signs of trauma. EYES: PERRL, extraocular movements intact, sclera anicteric, conjunctiva clear. ENT: Ears normal, oropharynx clear without exudates, moist mucous membranes. NECK: Trachea midline, full range of motion, supple. LUNGS: CTA BL , no wheeze or crackles, no accessory muscle use. HEART: Regular rate and rhythm, S1, S2 without murmur, rub or gallop. ABDOMEN: Soft, nontender, nondistended, normoactive bowel sounds, no guarding, no rebound, no hepatosplenomegaly, no masses. EXTREMITIES: 2+ pulses, warm, well-perfused, no edema. NEUROLOGICAL: Cranial nerves II through XII grossly intact. Normal speech, gait is stable PSYCH: Normal mood, normal affect. SKIN: Warm, dry, normal turgor, no rashes or lesions noted. CBCD WBC 11.6 K/mm3 (4.0-10.0) H 11/16/18 06:22 RBC 3.59 M/mm3 (3.60-5.2) L 11/16/18 06:22 Hgb 10.8 GM/dL (10.7-15.3) 11/16/18 06:22 Hct 32.1 % (32.4-45.2) L 11/16/18 06:22 MCV 89.5 fl (80-96) 11/16/18 06:22 MCHC 33.7 g/dl (32.0-36.0) 11/16/18 06:22 RDW 14.1 % (11.6-15.6) 11/16/18 06:22 Plt Count 305 K/MM3 (134-434) D 11/16/18 06:22 MPV 8.0 fl (7.5-11.1) 11/16/18 06:22 CMP Sodium 141 mmol/L (136-145) 11/16/18 06:22 Potassium 4.4 mmol/L (3.5-5.1) 11/16/18 06:22 Chloride 105 mmol/L (98-107) 11/16/18 06:22 Carbon Dioxide 29 mmol/L (21-32) 11/16/18 06:22 Anion Gap 7 MMOL/L (8-16) L 11/16/18 06:22 BUN 14.8 mg/dL (7-18) 11/16/18 06:22 Creatinine 0.7 mg/dL (0.55-1.3) 11/16/18 06:22 Random Glucose 106 mg/dL (74-106) 11/16/18 06:22 Calcium 9.2 mg/dL (8.5-10.1) 11/16/18 06:22 Total Bilirubin 0.2 mg/dL (0.2-1) 11/16/18 06:22 AST 44 U/L (15-37) H 11/16/18 06:22 ALT 98 U/L (13-61) H 11/16/18 06:22 Alkaline Phosphatase 233 U/L (45-117) H 11/16/18 06:22 Total Protein 6.3 g/dl (6.4-8.2) L 11/16/18 06:22 Albumin 3.2 g/dl (3.4-5.0) L 11/16/18 06:22 CARDIAC ENZYMES Troponin I < 0.02 ng/ml (0.00-0.05) 11/12/18 06:17 Current Medications Generic Name Dose Route Start Last Admin Trade Name Freq PRN Reason Stop Dose Admin Acetaminophen 650 mg 11/12/18 00:30 11/15/18 10:28 Tylenol - PO 650 mg Q6H PRN Administration Fever Or Pain Albuterol Sulfate 1 amp 11/15/18 21:09 Ventolin 0.083% Nebulizer Soln - NEB Q4H PRN SHORT OF BREATH/WHEEZING Albuterol/Ipratropium 1 amp 11/14/18 12:00 11/16/18 11:08 Duoneb - NEB 1 amp RQID JESSENIA Administration Buprenorphine/Naloxone 3 each 11/13/18 10:00 11/16/18 12:05 Suboxone 8 Mg/2mg Sl Film - SL 3 each DAILY JESSENIA Administration Clonazepam 0.5 mg 11/14/18 19:47 11/16/18 12:12 Klonopin - PO 0.5 mg BID PRN Administration AGITATION Enoxaparin Sodium 40 mg 11/15/18 16:45 11/16/18 12:06 Lovenox - SQ 40 mg DAILY JESSENIA Administration Fluvoxamine Maleate 300 mg 11/14/18 10:00 11/16/18 12:07 Luvox - PO 300 mg DAILY JESSENIA Administration Hydroxyzine Pamoate 25 mg 11/14/18 19:50 11/15/18 21:05 Vistaril - PO 25 mg Q8H PRN Administration FOR ITCHING Levofloxacin 500 mg in 100 mls @ 100 mls/hr 11/13/18 10:00 11/16/18 12:01 Levaquin 500 Mg Premixed Ivpb - IVPB 100 mls/hr DAILY JESSENIA Administration Protocol Lamotrigine 400 mg 11/14/18 10:00 11/16/18 12:05 Lamictal - PO 400 mg DAILY JESSENIA Administration Levothyroxine Sodium 125 mcg 11/12/18 07:00 11/16/18 06:01 Synthroid - PO 125 mcg DAILY@0700 JESSENIA Administration Nicotine 14 mg 11/13/18 10:00 11/16/18 12:02 Nicoderm Patch - TD 14 mg DAILY JESSENIA Administration Prednisone 30 mg 11/16/18 12:00 11/16/18 12:14 Deltasone - PO 30 mg DAILY JESSENIA Administration Ranitidine HCl 150 mg 11/16/18 10:15 11/16/18 12:00 Zantac - PO 150 mg BID JESSENIA Administration Trazodone HCl 25 mg 11/12/18 22:00 11/15/18 22:47 Desyrel - PO 25 mg HS JESSENIA Administration Home Medications Medication Instructions Recorded Alprazolam 2 mg PO TID 11/12/18 Clonazepam [Klonopin] 1 mg PO BID 11/12/18 Fluvoxamine Maleate [Fluvoxamine 150 mg PO BID 11/12/18 Maleate ER] Gabapentin 300 mg PO QID 11/12/18 Lamotrigine 200 mg PO BID 11/12/18 Levothyroxine [Synthroid -] 125 mcg PO DAILY 11/12/18 Suboxone 12 mg-3 mg Sl Film 24 mg PO DAILY 11/12/18 traZODone HCL [Trazodone HCl] 100 mg PO HS 11/12/18 Microbiology 11/11/18 16:00 Blood - Peripheral Venous Blood Culture - Final NO GROWTH AFTER 5 DAYS INCUBATION 11/11/18 15:44 Blood - Peripheral Venous Blood Culture - Final NO GROWTH AFTER 5 DAYS INCUBATION 11/13/18 16:00 Sputum - Expectorated Gram Stain - Final 11/13/18 16:00 Sputum - Expectorated Sputum Culture - Final NORMAL RESPIRATORY TRUE 11/12/18 20:00 Urine - Urine Clean Catch Urine Culture - Final NO GROWTH OBTAINED 11/12/18 20:00 Urine For Antigen Detection Legionella Antigen - Final 11/12/18 20:00 Urine For Antigen Detection Streptococcus pneumoniae Antigen (M - Final HOSPITAL COURSE: Date of Admission:11/11/18 Date of Discharge: 11/16/18 Patient is a 28 year old woman with pmhx of borderline personality disorder, GREY , SMA syndrome, hashimotos, hemorrhoids, and prescription drug abuse including percocet, vicodin, and xanax. who presented to the ED on 11/11 with 3 days of SOB , dizziness, and lethargy and 1 day of vomiting and was found to have BL Pneumonia. # Bilateral Pneumonia - ON IV Levaquin 500mg will switch to 4 more days to oral Levaquin due to allergic to PCN . legionella neg.and strept. negative, HIV neg. Discussed with Dr. Zuñiga , patient can be discharged home today on short term use of steroids with tapered dose , Her 02 sat 98% rm air as per our exam ,incentive spirometer suggested for the patient to use. s/p IV steroid. #Transaminitis: improved . US Abdomen showing fatty infiltrates of liver , F/U Hep serology , Fat/low sodium diet recommended and weight loss #Opoid dependency: Dr. Lewis consulted, appreciate her recommendations. patient is on Suboxone protocol out patient , she will follow with her own doctor. #Hx of borderline personality disorder continue home meds. dc patient home, discussed with her mother and the patient in details. Home Medications Medication Instructions Recorded Clonazepam [Klonopin] 1 mg PO BID 11/12/18 Fluvoxamine Maleate [Fluvoxamine 150 mg PO BID 11/12/18 Maleate ER] Gabapentin 300 mg PO QID 11/12/18 Lamotrigine 200 mg PO BID 11/12/18 Levothyroxine [Synthroid -] 125 mcg PO DAILY 11/12/18 Suboxone 12 mg-3 mg Sl Film 24 mg PO DAILY 11/12/18 Acetaminophen [Tylenol .Regular 650 mg PO Q6H PRN tablet 11/16/18 Strength -] Albuterol Sulfate [Albuterol 18 gm IH Q6H PRN #1 hfa.aer.ad 11/16/18 Sulfate Hfa] Fluvoxamine Maleate [Luvox -] 300 mg PO DAILY tablet 11/16/18 Lactobacillus Acidophilus [Bacid -] 1 each PO BID #30 capsule 11/16/18 Levothyroxine [Synthroid -] 125 mcg PO DAILY@0700 tablet 11/16/18 Ranitidine [Zantac -] 150 mg PO BID #60 tablet 11/16/18 levoFLOXacin [Levaquin -] 500 mg PO DAILY #4 tablet 11/16/18 predniSONE [Deltasone -] See Taper PO DAILY #13 tablet 11/16/18 Minutes to complete discharge: 35 Discharge Summary Reason For Visit: ELEVATED BRAIN NATRIURETIC PEPTIDE BNP LEVEL Current Active Problems Hypoxia (Acute) Pneumonia in diseases classified elsewhere (Acute) Shortness of breath (Acute) Condition: Stable - Instructions Diet, Activity, Other Instructions: low fat / low carbohydrate diet , no dairy diet continue taking your antibiotics for 4 more days, take Prednisone tapered dose ( 30mg= 3x10mg for 3 days) then 20mg= 2x10mg for 2 days then 10mg and complete the course. take it with Zantac 150mg. Do not take Levaquin with any dairy products, take it on empty stomach. also ordered Bacid 2x per day ( lactobacillus ). Please follow up with Pulmonary within a week period. Referrals: Jose F Peoples MD [Staff Physician] - 1 Week (follow with the clinic within a week period. ) Phil Zuñiga MD [Staff Physician] - 1 Week Disposition: HOME - Home Medications Comprehensive Discharge Medication List: Ambulatory Orders Alprazolam 2 mg PO TID 11/12/18 Clonazepam [Klonopin] 1 mg PO BID 11/12/18 Fluvoxamine Maleate [Fluvoxamine Maleate ER] 150 mg PO BID 11/12/18 Gabapentin 300 mg PO QID 11/12/18 Lamotrigine 200 mg PO BID 11/12/18 Levothyroxine [Synthroid -] 125 mcg PO DAILY 11/12/18 Suboxone 12 mg-3 mg Sl Film 24 mg PO DAILY 11/12/18 traZODone HCL [Trazodone HCl] 100 mg PO HS 11/12/18 This patient is new to me today: No Emergency Visit: Yes ED Registration Date: 11/11/18 Care time: The patient presented to the Emergency Department on the above date and was hospitalized for further evaluation of their emergent condition. Critical Care patient: No - Discharge Referral Referred to [facility] No
[2018-11-16 18:44] VITALS: BP 122/69; PULSE 74; TEMP 98.3
== END 2018-11-16 18:30 | disposition home or self-care (01) | DRG 194 ==
LOC: JER 14:13 → JERBED 18:11 → J7W 23:34
PROVIDERS: ADMIT Internal Medicine; ATTEND Internal Medicine
DX: J18.9 Pneumonia, unspecified organism (principal); K55.1 Chronic vascular disorders of intestine; Z68.41 Body mass index [BMI] 40.0-44.9, adult; F11.20 Opioid dependence, uncomplicated; F13.20 Sedative, hypnotic or anxiolytic dependence, uncomplicated; F41.9 Anxiety disorder, unspecified; F60.9 Personality disorder, unspecified; G47.33 Obstructive sleep apnea (adult) (pediatric); E06.3 Autoimmune thyroiditis; G40.909 Epilepsy, unspecified, not intractable, without status epilepticus; F51.3 Sleepwalking [somnambulism]; E66.8 Other obesity; R16.1 Splenomegaly, not elsewhere classified; K76.0 Fatty (change of) liver, not elsewhere classified; K64.8 Other hemorrhoids; J98.01 Acute bronchospasm; T40.601A Poisoning by unspecified narcotics, accidental (unintentional), initial encounter; Z88.0 Allergy status to penicillin; R09.02 Hypoxemia
CPT/HCPCS: 36415; 71045-TC-FY; 71046-TC-FY; 71250-TC; 76705-TC; 80053; 80074; 80307; 81003; 82803; 83605; 83735; 83880; 84100; 84443; 84484; 84703; 85025; 85027; 85379; 85610; 85730; 87040; 87070; 87086; 87205; 87389; 87899; 93005; 93010; 93306-TC; 93970-TC; 94640; 99284-25; J0131; J7030

== ENCOUNTER 2019-02-15 17:55 | Emergency (ER) | payer OTHER ==
--- NOTE | 2019-02-15 18:05 | PDOC ---
History of Present Illness - General Chief Complaint: Pain Stated Complaint: Stomach Pain Time Seen by Provider: 02/15/19 18:04 - History of Present Illness Initial Comments: 02/15/19 18:04 HPI: 29 y/o F with hx of borderline personality disroder, GREY, SMA syndrome s/p duodenojejunostomy in 2016, hashimotos thyroiditis, prescription drug abuse currently on suboxone presenting with epigastric abdominal pain since yesterday. Pain was gradual in onset since yesterday morning and was 1/10 but has been progressively worsening and is now 7/10. She attempted tylenol and protonix and had no pain relief. Pain feels like sharp and stabbing without radiation. She reports abdominal pain flareups last presenting 1 year ago. She denies fever, chills, chest pain, SOB, dysuria, hematuria, BPR. PMHx: as noted above, and cholecystectomy ROS: as noted SHx: 1/2 ppd; no alcohol use; no rec drugs Allergies: see above ROS: GENERAL/CONSTITUTIONAL: No fever or chills. No weakness. HEAD, EYES, EARS, NOSE AND THROAT: No change in vision. No ear pain or discharge. No sore throat. CARDIOVASCULAR: No chest pain or shortness of breath RESPIRATORY: No cough, wheezing, or hemoptysis. GASTROINTESTINAL: No nausea, vomiting, diarrhea or constipation. GENITOURINARY: No dysuria, frequency, or change in urination. MUSCULOSKELETAL: No joint or muscle swelling or pain. No neck or back pain. SKIN: No rash NEUROLOGIC: No headache, vertigo, loss of consciousness, or change in strength/ sensation. ENDOCRINE: No increased thirst. No abnormal weight change HEMATOLOGIC/LYMPHATIC: No anemia, easy bleeding, or history of blood clots. ALLERGIC/IMMUNOLOGIC: No hives or skin allergy. PE: GENERAL: Awake, alert, and fully oriented, depressed mood and affect and crying during interview HEAD: No signs of trauma, normocephalic, atraumatic EYES: EOMI, sclera anicteric, conjunctiva clear ENT: Auricles normal inspection, hearing grossly normal, nares patent, oropharynx clear without exudates. Moist mucosa NECK: Normal ROM, no lymphadenopathy LUNGS: No increased work of breathing, symmetrical chest rise, clear to auscultation bilaterally, no wheezes, crackles or rhonchi HEART: Regular rate and rhythm, normal S1 and S2, no murmurs, peripheral pulses 2+ and equal bilaterally. ABDOMEN: Soft, nondistended, generalized abdominal ttp and focally worse in epigastric and RUQ regions with minor guarding, normoactive bowel sounds. no rebound. No masses. No CVAT EXTREMITIES: Normal inspection, Normal range of motion, no edema. No clubbing or cyanosis. NEUROLOGICAL: Cranial nerves II through XII grossly intact. Normal speech, normal gait, no focal sensorimotor deficits SKIN: Warm, Dry, normal turgor, no rashes or lesions noted Past History - Past Medical History Allergies/Adverse Reactions: Allergies Allergy/AdvReac Type Severity Reaction Status Date / Time amoxicillin Allergy Verified 02/15/19 18:20 cefdinir [Cefdinir] Allergy Verified 11/11/18 14:29 cephalexin [From Keflex] Allergy Verified 11/11/18 14:29 haloperidol [From Haldol] Allergy Verified 11/11/18 14:29 Penicillins Allergy Verified 11/11/18 14:29 shellfish derived Allergy Verified 11/11/18 14:29 Sulfa (Sulfonamide Allergy Verified 11/11/18 14:29 Antibiotics) venom-honey bee Allergy Verified 11/11/18 14:29 [bee venom (honey bee)] iv contrast Allergy Uncoded 11/11/18 14:29 Home Medications: Ambulatory Orders Gabapentin 300 mg PO QID 11/12/18 Lamotrigine 200 mg PO BID 11/12/18 Suboxone 12 mg-3 mg Sl Film 24 mg PO DAILY 11/12/18 Acetaminophen [Tylenol .Regular Strength -] 650 mg PO Q6H PRN tablet 11/16/18 Albuterol Sulfate [Albuterol Sulfate Hfa] 18 gm IH Q6H PRN #1 hfa.aer.ad Fluvoxamine Maleate [Luvox -] 300 mg PO DAILY tablet 11/16/18 Lactobacillus Acidophilus [Bacid -] 1 each PO BID #30 capsule 11/16/18 Levothyroxine [Synthroid -] 125 mcg PO DAILY@0700 tablet 11/16/18 Ranitidine [Zantac -] 150 mg PO BID #60 tablet 11/16/18 levoFLOXacin [Levaquin -] 500 mg PO DAILY #4 tablet 11/16/18 Anemia: No Asthma: No Cancer: No Cardiac Disorders: No CVA: No COPD: No CHF: No Dementia: No Diabetes: No GI Disorders: Yes Disorders: No HTN: No Hypercholesterolemia: No Liver Disease: No Psychiatric Problems: Yes (BIPOLAR) Seizures: Yes (Feb 2017) Thyroid Disease: Yes (Diogenes's thyroiditis) - Surgical History Abdominal Surgery: Yes (Exploratory) Appendectomy: No Cholecystectomy: Yes GI Surgery: Yes (Gastrojejunun) Orthopedic Surgery: No - Immunization History Immunization Up to Date: Yes - Psycho Social/Smoking Cessation Hx Smoking History: Current every day smoker Have you smoked in the past 12 months: Yes Number of Cigarettes Smoked Daily: 2 'Breaking Loose' booklet given: 03/29/14 Hx Alcohol Use: No Drug/Substance Use Hx: Yes Substance Use Type: None Hx Substance Use Treatment: Yes Medical Decision Making - Medical Decision Making 02/15/19 19:14 29 y/o F with hx of borderline personality disroder, GREY, SMA syndrome s/p duodenojejunostomy in 2015, hashimotos thyroiditis, prescription drug abuse currently on suboxone presenting with epigastric abdominal pain since yesterday. VSS, AF. DDx includes gastritis, GERD, psychosomatic abd pain, complication of previous surgery -cbc, cmp, lipase, ua -ofirmev, ivf, pepcid, maalox 02/15/19 19:19 UA negative signed out to night team to follow up results and may require imaging pending pain resolution Discharge - Discharge Information Problems reviewed: Yes Clinical Impression/Diagnosis: Abdominal pain Qualifiers: Abdominal location: epigastric Qualified Code(s): R10.13 - Epigastric pain Condition: Stable - Follow up/Referral - Patient Discharge Instructions - Post Discharge Activity
--- NOTE | 2019-02-15 18:07 | PDOC ---
Attending Attestation - Resident Resident Name: Ping Pizarro - HPI HPI: 02/15/19 18:42 pt presents to the ED complaining of a one day history of epigastric pain without nausea or vomiting. Patient has been tolerating her normal PO diet. Extensive PMH as described in resident note. Patient and mother report that she has had multiple episodes of similar pain. - Physicial Exam PE: 02/15/19 18:46 Gen: alert, tearful. Abdomen: soft, non tender, non distended, no guarding or rebound. - Medical Decision Making 02/15/19 18:47 pt presents to the ED complaining of epigastric pain similar to prior episodes of epigastric pain, without vomiting or fever. Patient and mother seem to attribute these symptoms to gastritis. Abdomen is non tender. Will treat for gastritis with pepcid and tylenol and check labs. If labs are within normal limits and pain is controlled, will discharge home. If patient has continued pain, will consider CT abdomen pelvis given her history and past surgeries.
[2019-02-15 18:10] VITALS: BP 112/71; PULSE 81; TEMP 98.5; BMI 40.4
[2019-02-15] MEDS ORDERED: ACETAMINOPHEN 1000 MG/100 ML VIAL (NON FORMULARY) IVPB ONE (18:37)
[2019-02-15] MEDS ORDERED: MAG HYDROX/AL HYDROX/SIMETH 30 ML UNIT-DOSE CUP PO ONE (18:37)
[2019-02-15] MEDS ORDERED: FAMOTIDINE 20 MG/50 ML IVPB 20 MG/50 ML MG IVPB ONE ×2 (18:37→18:44)
[2019-02-15] MEDS ORDERED: SODIUM CHLORIDE 1,000 ML IV STA (18:37)
[2019-02-15] MEDS ORDERED: MAG HYDROX/AL HYDROX/SIMETH 30 ML UNIT-DOSE CUP ONE (18:44)
[2019-02-15] MEDS ORDERED: ACETAMINOPHEN INJECTION 100 ML IVPB ONE (18:44)
[2019-02-15 19:20] LABS: EOS % 2.8 % (0-4.5); HEMATOCRIT 37.8 % (32.4-45.2); HEMOGLOBIN 12.9 GM/dl (10.7-15.3); LYMPH % 30.8 % (8-40); MCH 30.6 pg (25.7-33.7); MEAN CELL VOLUME 89.9 fl (80-96); MEAN PLT VOLUME 7.8 fl (7.5-11.1); MONO % 4.9 % (3.8-10.2); NEUT % 60.5 % (42.8-82.8); PLATELET COUNT 271 K/MM3 (134-434); RBC 4.21 M/mm3 (3.60-5.2); RDW 13.7 % (11.6-15.6); WHITE BLOOD COUNT 8.9 K/mm3 (4.0-10.8)
[2019-02-15 19:27] LABS: ALBUMIN 4.3 g/dl (3.4-5.0); BILIRUBIN,TOTAL 0.4 mg/dl (0.2-1); CALCIUM 8.5 mg/dl (8.5-10); CREATININE 0.9 mg/dl (0.55-1.3); POTASSIUM 4.1 mmol/L (3.5-5.1)
[2019-02-15] MEDS ORDERED: KETOROLAC TROMETHAMINE 15 MG/ML VIAL IVPUSH ONE (20:13)
[2019-02-15] MEDS ORDERED: KETOROLAC TROMETHAMINE 15 MG/ML VIAL ONE (20:15)
--- NOTE | 2019-02-15 20:26 | PDOC ---
History of Present Illness - General Chief Complaint: Pain Stated Complaint: Stomach Pain Time Seen by Provider: 02/15/19 18:04 Past History - Past Medical History Allergies/Adverse Reactions: Allergies Allergy/AdvReac Type Severity Reaction Status Date / Time amoxicillin Allergy Verified 02/15/19 18:20 cefdinir [Cefdinir] Allergy Verified 11/11/18 14:29 cephalexin [From Keflex] Allergy Verified 11/11/18 14:29 haloperidol [From Haldol] Allergy Verified 11/11/18 14:29 Penicillins Allergy Verified 11/11/18 14:29 shellfish derived Allergy Verified 11/11/18 14:29 Sulfa (Sulfonamide Allergy Verified 11/11/18 14:29 Antibiotics) venom-honey bee Allergy Verified 11/11/18 14:29 [bee venom (honey bee)] iv contrast Allergy Uncoded 11/11/18 14:29 Home Medications: Ambulatory Orders Gabapentin 300 mg PO QID 11/12/18 Lamotrigine 200 mg PO BID 11/12/18 Suboxone 12 mg-3 mg Sl Film 24 mg PO DAILY 11/12/18 Acetaminophen [Tylenol .Regular Strength -] 650 mg PO Q6H PRN tablet 11/16/18 Albuterol Sulfate [Albuterol Sulfate Hfa] 18 gm IH Q6H PRN #1 hfa.aer.ad Fluvoxamine Maleate [Luvox -] 300 mg PO DAILY tablet 11/16/18 Lactobacillus Acidophilus [Bacid -] 1 each PO BID #30 capsule 11/16/18 Levothyroxine [Synthroid -] 125 mcg PO DAILY@0700 tablet 11/16/18 Ranitidine [Zantac -] 150 mg PO BID #60 tablet 11/16/18 levoFLOXacin [Levaquin -] 500 mg PO DAILY #4 tablet 11/16/18 Anemia: No Asthma: No Cancer: No Cardiac Disorders: No CVA: No COPD: No CHF: No Dementia: No Diabetes: No GI Disorders: Yes Disorders: No HTN: No Hypercholesterolemia: No Liver Disease: No Psychiatric Problems: Yes (BIPOLAR) Seizures: Yes (Feb 2017) Thyroid Disease: Yes (Diogenes's thyroiditis) - Surgical History Abdominal Surgery: Yes (Exploratory) Appendectomy: No Cholecystectomy: Yes GI Surgery: Yes (Gastrojejunun) Orthopedic Surgery: No - Immunization History Immunization Up to Date: Yes - Psycho Social/Smoking Cessation Hx Smoking History: Current every day smoker Have you smoked in the past 12 months: Yes Number of Cigarettes Smoked Daily: 2 'Breaking Loose' booklet given: 03/29/14 Hx Alcohol Use: No Drug/Substance Use Hx: Yes Substance Use Type: None Hx Substance Use Treatment: Yes *Physical Exam - Vital Signs Last Vital Signs Temp Pulse Resp BP Pulse Ox 98.5 F 81 18 112/71 100 02/15/19 17:57 02/15/19 17:57 02/15/19 17:57 02/15/19 18:15 02/15/19 17:57 ED Treatment Course - LABORATORY CBC & Chemistry Diagram: 02/15/19 19:00 02/15/19 19:00 - ADDITIONAL ORDERS Additional order review: Laboratory Results 02/15/19 02/15/19 02/15/19 19:00 19:00 19:00 Sodium Potassium Chloride Carbon Dioxide Anion Gap BUN Creatinine Est GFR (CKD-EPI)AfAm Est GFR (CKD-EPI)NonAf Random Glucose Calcium Total Bilirubin AST ALT Alkaline Phosphatase Total Protein Albumin Lipase 95 Urine Color Yellow Urine Appearance Slightly Urine pH 5.0 Urine Protein Negative Urine Glucose (UA) Negative Urine Ketones Negative Urine Blood Negative Urine Nitrite Negative Urine Bilirubin Negative Urine Urobilinogen 0.2 Ur Leukocyte Esterase Negative Urine HCG, Qual Negative 02/15/19 19:00 Sodium 138 Potassium 4.1 Chloride 106 Carbon Dioxide 24 Anion Gap 8 BUN 11.0 Creatinine 0.9 Est GFR (CKD-EPI)AfAm 100.85 Est GFR (CKD-EPI)NonAf 87.01 Random Glucose 87 Calcium 8.5 Total Bilirubin 0.4 AST 112 H ALT 135 H Alkaline Phosphatase 143 H Total Protein 7.0 Albumin 4.3 Lipase Urine Color Urine Appearance Urine pH Urine Protein Urine Glucose (UA) Urine Ketones Urine Blood Urine Nitrite Urine Bilirubin Urine Urobilinogen Ur Leukocyte Esterase Urine HCG, Qual 02/15/19 19:00 RBC 4.21 MCV 89.9 MCHC 34.0 RDW 13.7 MPV 7.8 Neutrophils % 60.5 Lymphocytes % 30.8 Monocytes % 4.9 Eosinophils % 2.8 Basophils % 1.0 - Medications Given in the ED: ED Medications Discontinued Medications Generic Name Dose Route Start Last Admin Trade Name Freq PRN Reason Stop Dose Admin Acetaminophen 1,000 mg 02/15/19 18:37 02/15/19 19:00 Ofirmev Injection - IVPB 02/15/19 18:38 1,000 mg ONCE ONE Administration Al Hydroxide/Mg Hydroxide 30 ml 02/15/19 18:37 02/15/19 18:59 Mylanta Oral Suspension - PO 02/15/19 18:38 30 ml ONCE ONE Administration Famotidine/Sodium Chloride 20 mg in 50 mls @ 100 mls/hr 02/15/19 18:37 19:35 Pepcid 20 Mg Premixed Ivpb - IVPB 02/15/19 19:06 100 mls/hr ONCE ONE Administration Sodium Chloride 1,000 mls @ 1,000 mls/hr 02/15/19 18:37 02/15/19 18:59 Normal Saline - IV 02/15/19 19:36 1,000 mls/hr ASDIR STA Administration Medical Decision Making - Medical Decision Making 02/15/19 20:24 symptoms resolved referred to PCP for jolly of transaminitis Discharge - Discharge Information Problems reviewed: Yes Clinical Impression/Diagnosis: Abdominal pain Qualifiers: Abdominal location: epigastric Qualified Code(s): R10.13 - Epigastric pain Condition: Stable - Follow up/Referral - Patient Discharge Instructions Additional Instructions: Please followup with your doctor for further work up of elevated liver enzymes - Post Discharge Activity
== END 2019-02-15 20:40 | disposition home or self-care (01) ==
LOC: FER 17:55
PROC: 3E033NZ Introduction of Analgesics, Hypnotics, Sedatives into Peripheral Vein, Percutaneous Approach (ICD-10-PCS; principal; 2019-02-15)
PROC: 3E033GC Introduction of Other Therapeutic Substance into Peripheral Vein, Percutaneous Approach (ICD-10-PCS; 2019-02-15)
DX: R10.13 Epigastric pain (principal); Z88.0 Allergy status to penicillin; Z88.8 Allergy status to other drugs, medicaments and biological substances; F60.3 Borderline personality disorder; G47.33 Obstructive sleep apnea (adult) (pediatric); G12.9 Spinal muscular atrophy, unspecified; E06.3 Autoimmune thyroiditis; F19.10 Other psychoactive substance abuse, uncomplicated; F17.210 Nicotine dependence, cigarettes, uncomplicated; R56.9 Unspecified convulsions; K92.9 Disease of digestive system, unspecified
CPT/HCPCS: 36415; 80053; 81003; 83690; 84703; 85025; 99284-25; J0131; J7030